=== PATIENT | male | born 1940 | race Hispanic/Latino ===

== ENCOUNTER 2018-08-17 16:11 | Emergency (ER) | payer OTHER ==
--- OUTSIDE RECORDS SUMMARY | 2018-08-17 16:14 | XMS REPORT | Clinical Summary ---
:1940 Author Organization [facility] Address [address] [place] [id number] Care Team Providers Name Role Phone Alexis Primary Care Provider Allergies No Known Allergies Medications Medication Sig Dispensed Refills Start Date End Date Status omeprazole (PRILOSEC) Take 40 mg by 0 Active 40 MG capsule mouth daily. losartan (COZAAR) 100 Take 100 mg by 0 Active MG tablet mouth daily. aspirin 81 MG EC Take 81 mg by 0 Active tablet mouth daily. pravastatin Take 40 mg by 0 Active (PRAVACHOL) 40 MG mouth daily. tablet clopidogrel (PLAVIX) Take 1 tablet 30 tablet 0 12/09/2016 12/09/2017 75 mg tablet (75 mg total) by mouth daily. Active Problems Problem Noted Date Nonrheumatic aortic (valve) stenosis 12/09/2016 S/P AVR Hypertension Coronary artery disease CHF (congestive heart failure) Stenosis of prosthetic aortic valve COPD (chronic obstructive pulmonary disease) Family History Medical History Relation Name Comments Heart disease Brother Relation Name Status Comments Brother Father Alive Mother Alive Social History Tobacco Use Types Packs/Day Years Used Date Former Smoker 1 Quit: 2005 Smokeless Tobacco: Never Used Tobacco Cessation: Counseling Given: No Alcohol Use Drinks/Week oz/Week Comments No Sex Assigned at Date Recorded Not on file Job Start Date Occupation Industry Not on file Not on file Not on file Travel History Travel Start Travel End No recent travel history available. Last Filed Vital Signs Not on file Plan of Treatment Not on file Implants Implanted Type Area Manager Inpatient Device Shelf Expiration Model / Identifier Date Serial / Lot Corevalve Evolut R Valves MEDTRONIC 07/09/2018 / Implanted: Qty: 1 on 12/08/2016 by Kan Hewitt MD [id number] / EVOLUTR 23- Results Not on fileafter 08/16/2017 Insurance Payer Benefit Plan / Group Subscriber ID Type Phone Address MEDICARE MEDICARE PART A xxxxxxxxxx Medicare AETNA - MGD CARE AETNA HMO POS QPOS xxxxxxxxxx HMO/POS [phone] (Work) Advance Directives For more information, please contact:[facility] [place], [place] [phone] Code Status Date Activated Date Inactivated Comments Full Code 12/08/2016 3:33 PM 12/09/2016 7:07 PM This code status was determined by: Patient Full Code 12/08/2016 5:23 AM 12/08/2016 3:33 PM This code status was determined by: Patient
--- OUTSIDE RECORDS SUMMARY | 2018-08-17 16:14 | XMS REPORT ---
:1940 Author Organization [facility] Address [address] [place] [address] Care Team Providers Name Role Phone PATRIC ALTMAN Unavailable Unavailable Problems This patient has no known problems. Allergies, Adverse Reactions, Alerts This patient has no known allergies or adverse reactions. Medications This patient has no known medications. Results Test Description Test Time Test Comments Text Results Atomic Results Result Comments BASIC METABOLIC PANEL 2016-12-09 06:18:00 Test Item Value Reference Range Comments SODIUM (BEAKER) (test 138 meq/L 136-145 mxyr=524) POTASSIUM (BEAKER) (test 4.2 meq/L 3.5-5.1 jgbh=163) CHLORIDE (BEAKER) (test 109 meq/L 98-107 ygkm=975) CO2 (BEAKER) (test loqx=915) 23 meq/L 22-29 BLOOD UREA NITROGEN (BEAKER) 16 mg/dL 7-21 (test kfsb=869) CREATININE (BEAKER) (test 1.15 mg/dL 0.57-1.25 uopr=339) GLUCOSE RANDOM (BEAKER) 127 mg/dL 70-105 (test eswc=339) CALCIUM (BEAKER) (test 8.3 mg/dL 8.4-10.2 ihgh=597) EGFR (BEAKER) (test 62 mL/min/1.73 sq m ESTIMATED GFR IS NOT jcev=7758) ACCURATE CREATININE CLEARANCE IN PREDICTING GLOMERULAR FILTRATION RATE. ESTIMATED GFR IS NOT APPLICABLE FOR DIALYSIS PATIENTS. HEPATITIS B SURFACE [id number] 06:15:00 Test Item Value Reference Range Comments HEPATITIS B SURFACE ANTIGEN (2) (BEAKER) (test Nonreactive Nonreactive vrgv=3398) For chronic HD patients, draw HBsAg with each admission then every 30 days.CBC W /PLT COUNT & AUTO [id number] 05:45:00 Test Item Value Reference Range Comments WHITE BLOOD CELL COUNT (BEAKER) (test kbal=640) 9.8 K/ L 3.5-10.5 RED BLOOD CELL COUNT (BEAKER) (test suje=767) 3.84 M/ L 4.63-6.08 HEMOGLOBIN (BEAKER) (test eypk=977) 11.5 GM/DL 13.7-17.5 HEMATOCRIT (BEAKER) (test pfne=502) 34.0 % 40.1-51.0 MEAN CORPUSCULAR VOLUME (BEAKER) (test fqzu=271) 88.5 fL 79.0-92.2 MEAN CORPUSCULAR HEMOGLOBIN (BEAKER) (test 29.9 pg 25.7-32.2 sczu=806) MEAN CORPUSCULAR HEMOGLOBIN CONC (BEAKER) (test 33.8 GM/DL 32.3-36.5 qsnh=066) RED CELL DISTRIBUTION WIDTH (BEAKER) (test 14.0 % 11.6-14.4 nyki=413) PLATELET COUNT (BEAKER) (test udtz=519) 99 K/CU MM 150-450 MEAN PLATELET VOLUME (BEAKER) (test vukj=031) 10.9 fL 9.4-12.4 NUCLEATED RED BLOOD CELLS (BEAKER) (test 0 /100 WBC 0-0 acrm=770) NEUTROPHILS RELATIVE PERCENT (BEAKER) (test 70 % ugxw=940) LYMPHOCYTES RELATIVE PERCENT (BEAKER) (test 18 % zjat=417) MONOCYTES RELATIVE PERCENT (BEAKER) (test 11 % bmgd=436) EOSINOPHILS RELATIVE PERCENT (BEAKER) (test 1 % dmen=561) BASOPHILS RELATIVE PERCENT (BEAKER) (test 0 % mwol=504) NEUTROPHILS ABSOLUTE COUNT (BEAKER) (test 6.87 K/ L 1.78-5.38 jxqt=008) LYMPHOCYTES ABSOLUTE COUNT (BEAKER) (test 1.77 K/ L 1.32-3.57 lfwp=774) MONOCYTES ABSOLUTE COUNT (BEAKER) (test waeo=199) 1.04 K/ L 0.30-0.82 EOSINOPHILS ABSOLUTE COUNT (BEAKER) (test 0.07 K/ L 0.04-0.54 aade=559) BASOPHILS ABSOLUTE COUNT (BEAKER) (test civu=680) 0.02 K/ L 0.01-0.08 IMMATURE GRANULOCYTES-RELATIVE PERCENT (BEAKER) 0 % 0-1 (test pgxn=9478) [id number] 11:14:00 Test Item Value Reference Range Comments ACTIVATED CLOTTING TIME 108 sec TESTED AT [facility] [address] (BEAKER) (test mmsa=774) [place] [address] SODIUM NA-STAT [id number] 10:49:00 Test Item Value Reference Range Comments SODIUM (BEAKER) (test gfit=689) 136 meq/L 135-148 POTASSIUM-STAT [id number] 10:49:00 Test Item Value Reference Range Comments POTASSIUM (BEAKER) (test aohb=811) 4.1 meq/L 3.6-5.5 BLOOD GAS, [id number] 10:49:00 Test Item Value Reference Range Comments PH ARTERIAL (BEAKER) (test wcmg=967) 7.28 7.35-7.45 PCO2 ARTERIAL (BEAKER) (test hgjv=685) 50 mmHg 35-45 PO2 ARTERIAL (BEAKER) (test fmiy=347) 73 mmHg 80-90 O2 SATURATION ARTERIAL (BEAKER) (test quef=271) 92.5 % 96.0-97.0 HCO3 ARTERIAL (BEAKER) (test blyx=198) 23 mmol/L 21-29 BASE EXCESS ARTERIAL (BEAKER) (test rmjv=017) -4.1 mmol/L -2.0-3.0 PATIENT TEMPERATURE (BEAKER) (test lbbe=3429) 37.0 C FIO2 (BEAKER) (test gsyt=5973) 21.0 % GLUCOSE-STAT [id number] 10:49:00 Test Item Value Reference Range Comments GLUCOSE RANDOM (BEAKER) (test kjzo=265) 143 mg/dL 70-110 HGB/HCT (H&H) - STAT [id number] 10:49:00 Test Item Value Reference Range Comments HEMOGLOBIN (BEAKER) (test iogu=175) 11.4 g/dL 13.0-16.8 HEMATOCRIT (BEAKER) (test lxhq=815) 34.0 % 40.0-50.0 [id number] 10:01:00 Test Item Value Reference Range Comments ACTIVATED CLOTTING TIME 246 sec TESTED AT [place] [id number] (BEAKER) (test fupi=770) [place] [address] [id number] 09:49:00 Test Item Value Reference Range Comments ACTIVATED CLOTTING TIME 186 sec TESTED AT [facility] [address] (BEAKER) (test fvlb=560) [place] [address] (MANUAL DIFFERENTIAL)2016-12-05 18:40:00 Test Item Value Reference Range Comments NEUTROPHILS - REL (DIFF) 45 % (BEAKER) (test qduh=6686) LYMPHOCYTES - REL (DIFF) 36 % (BEAKER) (test nohp=2718) MONOCYTES - REL (DIFF) (BEAKER) 5 % (test nsmj=8656) EOSINOPHILS - REL (DIFF) 8 % (BEAKER) (test btyd=2583) BASOPHILS - REL (DIFF) (BEAKER) 2 % (test cbua=9279) METAMYELOCYTES-REL (DIFF) 1 % 0-0 (BEAKER) (test xgdy=947) MYELOCYTES-REL (DIFF) (BEAKER) 2 % 0-0 (test mvrc=0788) BANDS - REL (DIFF) (BEAKER) 1 % 0-10 (test rrck=9353) NEUTROPHILS - ABS (DIFF) 2.79 K/ L 1.80-8.00 (BEAKER) (test kbol=2890) LYMPHOCYTES - ABS (DIFF) 2.23 K/ L 1.48-4.50 (BEAKER) (test asqf=3737) MONOCYTES - ABS (DIFF) (BEAKER) 0.31 K/ L 0.00-1.30 (test fwmw=1278) EOSINOPHILS - ABS (DIFF) 0.50 K/ L 0.00-0.50 (BEAKER) (test znmb=6680) BASOPHILS - ABS (DIFF) (BEAKER) 0.12 K/ L 0.00-0.20 (test vtkf=4235) METAMYELOCTYES - ABS (DIFF) 0.06 K/ L 0.00-0.00 (BEAKER) (test lkmk=899) BANDS-ABS (DIFF) (BEAKER) (test 0.1 K/ L 0.0-0.8 uzam=8560) MYELOCYTES-ABS (DIFF) (BEAKER) 0.12 K/ L 0.00-0.00 (test odsr=8703) TOTAL COUNTED (BEAKER) (test 100 hspo=1699) BANDS + SEGMENTED NEUTROPHILS 2.85 (BEAKER) (test dkhu=1423) WBC MORPHOLOGY (BEAKER) (test Normal wbux=778) PLT MORPHOLOGY (BEAKER) (test Normal wqdu=766) OVALOCYTES (BEAKER) (test 1+ few This is a corrected result. gdwn=522) Previous result was 2+ moderate on 12/05/2016 at 1824 CDT POIKILOCYTES (BEAKER) (test 1+ few mhxo=472) Called to RN at 1831.CBC W/PLT COUNT & AUTO [id number] 18:18:00 Test Item Value Reference Range Comments WHITE BLOOD CELL COUNT (BEAKER) (test cfno=772) 6.2 K/ L 3.5-10.5 RED BLOOD CELL COUNT (BEAKER) (test hyct=146) 4.52 M/ L 4.63-6.08 HEMOGLOBIN (BEAKER) (test uqnp=442) 13.6 GM/DL 13.7-17.5 HEMATOCRIT (BEAKER) (test rczb=290) 39.6 % 40.1-51.0 MEAN CORPUSCULAR VOLUME (BEAKER) (test cmbn=955) 87.6 fL 79.0-92.2 MEAN CORPUSCULAR HEMOGLOBIN (BEAKER) (test 30.1 pg 25.7-32.2 kvhz=255) MEAN CORPUSCULAR HEMOGLOBIN CONC (BEAKER) (test 34.3 GM/DL 32.3-36.5 mwbj=250) RED CELL DISTRIBUTION WIDTH (BEAKER) (test 13.4 % 11.6-14.4 qzha=738) PLATELET COUNT (BEAKER) (test dqdx=238) 140 K/CU MM 150-450 MEAN PLATELET VOLUME (BEAKER) (test wugt=482) 10.9 fL 9.4-12.4 NUCLEATED RED BLOOD CELLS (BEAKER) (test 0 /100 WBC 0-0 cibh=248) IMMATURE GRANULOCYTES-RELATIVE PERCENT (BEAKER) 0 % 0-1 (test dsdp=3940) B-TYPE NATRIURETIC FACTOR (BNP)2016-12-05 15:18:00 Test Item Value Reference Range Comments B-TYPE NATRIURETIC PEPTIDE (BEAKER) (test 135 pg/mL 0-100 fnod=821) BASIC METABOLIC [id number] 15:11:00 Test Item Value Reference Range Comments SODIUM (BEAKER) (test 137 meq/L 136-145 giqb=923) POTASSIUM (BEAKER) (test 4.2 meq/L 3.5-5.1 ilvs=282) CHLORIDE (BEAKER) (test 108 meq/L 98-107 ysdm=704) CO2 (BEAKER) (test 22 meq/L 22-29 aznz=023) BLOOD UREA NITROGEN 16 mg/dL 7-21 (BEAKER) (test dlit=841) CREATININE (BEAKER) (test 0.97 mg/dL 0.57-1.25 bogu=986) GLUCOSE RANDOM (BEAKER) 93 mg/dL 70-105 (test nvmi=528) CALCIUM (BEAKER) (test 9.3 mg/dL 8.4-10.2 ycdf=224) EGFR (BEAKER) (test 76 mL/min/1.73 sq m ESTIMATED GFR IS NOT zpms=2735) ACCURATE CREATININE CLEARANCE IN PREDICTING GLOMERULAR FILTRATION RATE. ESTIMATED GFR IS NOT APPLICABLE FOR DIALYSIS PATIENTS. [id number] 15:11:00 Test Item Value Reference Range Comments ALBUMIN (BEAKER) (test oniv=7465) 4.0 g/dL 3.5-5.0 PROTHROMBIN [id number] 15:10:00 Test Item Value Reference Range Comments PROTIME (BEAKER) (test xpbf=108) 14.9 seconds 11.7-14.7 INR (BEAKER) (test hwcj=639) 1.2 <=5.9 RECOMMENDED COUMADIN/WARFARIN INR THERAPY RANGESSTANDARD DOSE: 2.0 - 3.0 Includes: PROPHYLAXIS forvenous thrombosis, systemic embolization; TREATMENT for venous thrombosis and/or pulmonary embolus.HIGH RISK: Target INR is 2.5-3.5 for patients with mechanical heart valves.[id number] 13:21:00 Test Item Value Reference Range Comments POC-CREATININE (BEAKER) 1.1 mg/dL 0.6-1.3 TESTED AT [facility] [address] [facility] (test wrvp=1463) [facility] [address] POC-EGFR (BEAKER) (test 65 mL/min/1.73M2 owuv=5649)
[2018-08-17] MEDS ORDERED: ACETAMINOPHEN 325 MG TABLET ONE (18:15)
[2018-08-17] MEDS ORDERED: BENZONATATE 100 MG CAP PO ONE (18:15)
--- NOTE | 2018-08-17 18:53 | ER ---
Nurse's Notes [facility] Name: Marcel Hein Age: 78 yrs Sex: Male : 1940 Arrival Date: 08/17/2018 Time: 16:16 Bed 27 Private MD: Lino Salinas Diagnosis: Acute upper respiratory infection, unspecified Presentation: 08/17 16:28 Presenting complaint: Patient states: Sore throat and headache since yesterday, denies ss N/N/D or fever. Transition of care: patient was not received from another setting of care. Onset of symptoms was August 17, 2018. Risk Assessment: Do you want to hurt yourself or someone else? Patient reports no desire to harm self or others. Initial Sepsis Screen: Does the patient meet any 2 criteria? No. Patient's initial sepsis screen is negative. Does the patient have a suspected source of infection? No. Patient's initial sepsis screen is negative. Care prior to arrival: None. 16:28 Method Of Arrival: Ambulatory ss 16:28 Acuity: CHAD 4 ss Historical: - Allergies: 16:34 No Known Allergies; ph - Home Meds: 16:34 amlodipine 5 mg tab 1 tab once daily [Active]; aspirin 81 mg Oral chew 1 tab once daily ph [Active]; losartan 100 mg Oral tab 1 tab once daily [Active]; metoprolol tartrate 25 mg Oral tab 1 tab 2 times per day [Active]; omeprazole 40 mg Oral cpDR before meals [Active]; pravastatin 40 mg Oral tab 1 tab once daily [Active]; clopidogrel 75 mg oral tab 1 tab once daily [Active]; - PMHx: 16:34 CAD; GERD; High Cholesterol; Hypertension; ph - Immunization history:: Adult Immunizations unknown. - Social history:: Smoking status: Patient/guardian denies using tobacco. - Ebola Screening: : No symptoms or risks identified at this time. Screenin:32 Abuse screen: Denies threats or abuse. Denies injuries from another. Nutritional rv screening: No deficits noted. Tuberculosis screening: No symptoms or risk factors identified. Fall Risk None identified. Assessment: 17:31 General: Appears in no apparent distress. comfortable, Behavior is calm, cooperative. rv Pain: Complains of pain in throat. Neuro: Level of Consciousness is awake, alert, obeys commands, Oriented to person, place, time, situation. Cardiovascular: Patient's skin is warm and dry. Respiratory: Airway is patent Respiratory effort is even, Breath sounds are clear bilaterally. GI: No signs and/or symptoms were reported involving the gastrointestinal system. : No signs and/or symptoms were reported regarding the genitourinary system. EENT: Throat is reddened. Derm: Skin is intact. Musculoskeletal: No signs and/or symptoms reported regarding the musculoskeletal system. Vital Signs: 16:29 BP 136 / 53; Pulse 63; Resp 18; Temp 98.6; Pulse Ox 99% on R/A; Weight 68.04 kg; ss 17:00 BP 122 / 80; Pulse 99; Resp 16; Pulse Ox 99% ; rv 17:30 BP 103 / 69; Pulse 86; Resp 17; Temp 98.4; Pulse Ox 100% ; rv ED Course: 16:16 Patient arrived in ED. mr 16:17 Lino Salinas MD is Private Physician. mr 16:29 Triage completed. ss 16:30 Corey Dior PA is PHCP. jr8 16:30 Cristhian Chaves MD is Attending Physician. jr8 16:34 Arm band placed on Patient placed in an exam room, on a stretcher. ph 17:05 PHCP role handed off by Corey Dior PA cp 17:05 Cristhian Boss PA is PHCP. cp 17:06 Levi Leslie, [place] is Primary Nurse. rv 17:32 Patient has correct armband on for positive identification. Bed in low position. Call rv light in reach. Side rails up X 1. Pulse ox on. NIBP on. 19:12 No provider procedures requiring assistance completed. Patient did not have IV access rv during this emergency room visit. Administered Medications: 18:00 Drug: Tylenol 650 mg Route: PO; rv 19:14 Follow up: Response: Marked relief of symptoms rv 18:00 Drug: Tessalon Perle 200 mg Route: PO; rv 19:14 Follow up: Response: Marked relief of symptoms rv Outcome: 18:52 Discharge ordered by . cp 19:12 Discharged to home ambulatory. rv 19:12 Condition: good 19:12 Discharge instructions given to patient, family, Instructed on discharge instructions, follow up and referral plans. medication usage, Demonstrated understanding of instructions, follow-up care, medications, Prescriptions given X 2. 19:13 Patient left the ED. rv Signatures: Ileana OwusuMary Jo RN RN Corey Dior PA PA jr8 Hall, Patricia, RN RN Cristhian Boss PA PA cp Vicente, Ronaldo, RN RN rv Corrections: (The following items were deleted from the chart) 19:10 18:30 Inserted saline lock: 20 gauge in right antecubital area, using aseptic rv technique. Blood collected. rv
--- NOTE | 2018-08-17 18:54 | EDPHYS ---
Physician Documentation [facility] Name: Marcel Hein Age: 78 yrs Sex: Male : 1940 Arrival Date: 08/17/2018 Time: 16:16 Bed 27 Private MD: Lino Salinas ED Physician Cristhian Chaves HPI: 08/17 17:30 This 78 yrs old Male presents to ER via Ambulatory with complaints of Sore cp Throat. 17:30 The patient presents with sore throat. Onset: The symptoms/episode began/occurred cp yesterday. Associated signs and symptoms: Pertinent positives: cough, headache, Pertinent negatives diarrhea, dysphagia, fever, shortness of breath, vomiting. Historical: - Allergies: 16:34 No Known Allergies; ph - Home Meds: 16:34 amlodipine 5 mg tab 1 tab once daily [Active]; aspirin 81 mg Oral chew 1 tab once daily ph [Active]; losartan 100 mg Oral tab 1 tab once daily [Active]; metoprolol tartrate 25 mg Oral tab 1 tab 2 times per day [Active]; omeprazole 40 mg Oral cpDR before meals [Active]; pravastatin 40 mg Oral tab 1 tab once daily [Active]; clopidogrel 75 mg oral tab 1 tab once daily [Active]; - PMHx: 16:34 CAD; GERD; High Cholesterol; Hypertension; ph - Immunization history:: Adult Immunizations unknown. - Social history:: Smoking status: Patient/guardian denies using tobacco. - Ebola Screening: : No symptoms or risks identified at this time. ROS: 17:35 Constitutional: Negative for body aches, chills, fever, poor PO intake. cp 17:35 Eyes: Negative for injury, pain, redness, and discharge. cp 17:35 ENT: Positive for sore throat, Negative for drainage from ear(s), ear pain, sinus congestion, sinus pain, difficulty swallowing, difficulty handling secretions. 17:35 Neck: Negative for pain with movement, pain at rest, stiffness. 17:35 Cardiovascular: Negative for chest pain, edema, palpitations. 17:35 Respiratory: Positive for cough, with no reported sputum, Negative for shortness of breath, wheezing. 17:35 Abdomen/GI: Negative for abdominal pain, nausea, vomiting, and diarrhea. 17:35 Skin: Negative for rash. 17:35 Neuro: Positive for headache, Negative for altered mental status, weakness. 17:35 All other systems are negative. Exam: 17:45 Constitutional: The patient appears in no acute distress, alert, awake, cp non-diaphoretic, non-toxic, well developed, well nourished. 17:45 Head/Face: Normocephalic, atraumatic. cp 17:45 Eyes: Periorbital structures: appear normal, Conjunctiva: normal, no exudate, no injection, Lids and lashes: appear normal, bilaterally. 17:45 ENT: External ear(s): are unremarkable, Ear canal(s): are normal, clear, TM's: bulging, is not appreciated, bilaterally, dullness, bilaterally, erythema, is not appreciated, bilaterally, Nose: is normal, Mouth: Lips: moist, Oral mucosa: moist, Posterior pharynx: Airway: no evidence of obstruction, patent, Tonsils: with erythema, no enlargement, no exudate, Uvula: midline, swelling, is not appreciated, erythema, that is mild, exudate, is not appreciated. 17:45 Neck: ROM/movement: is normal, is supple, without pain, no range of motions limitations, no meningismus, no nuchal rigidity, Lymph nodes: no appreciated lymphadenopathy. 17:45 Chest/axilla: Inspection: normal, Palpation: is normal, no crepitus, no tenderness. 17:45 Cardiovascular: Rate: normal, Rhythm: regular. 17:45 Respiratory: the patient does not display signs of respiratory distress, Respirations: normal, no use of accessory muscles, no retractions, no splinting, no tachypnea, labored breathing, is not present, Breath sounds: are clear throughout, no decreased breath sounds, no stridor, no wheezing. 17:45 Abdomen/GI: Exam negative for discomfort, distension, guarding, Inspection: abdomen appears normal. 17:45 Skin: no rash present. Vital Signs: 16:29 BP 136 / 53; Pulse 63; Resp 18; Temp 98.6; Pulse Ox 99% on R/A; Weight 68.04 kg; ss 17:00 BP 122 / 80; Pulse 99; Resp 16; Pulse Ox 99% ; rv 17:30 BP 103 / 69; Pulse 86; Resp 17; Temp 98.4; Pulse Ox 100% ; rv MDM: 16:30 Patient medically screened. jr8 17:30 Differential diagnosis: apthous stomatitis, group A strep tonsillitis, marty's angina, cp peritonsillar abscess pharyngitis, retropharyngeal abcess. 18:50 Data reviewed: vital signs, nurses notes, lab test result(s), and as a result, I will cp discharge patient. 18:50 Counseling: I had a detailed discussion with the patient and/or guardian regarding: the cp historical points, exam findings, and any diagnostic results supporting the discharge/admit diagnosis, lab results, to return to the emergency department if symptoms worsen or persist or if there are any questions or concerns that arise at home. 08/17 17:24 Order name: Influenza Screen (a \T\ B); Complete Time: 06:09 08/17 17:24 Order name: Strep; Complete Time: 06:09 08/17 17:47 Order name: Throat Culture EDOK Administered Medications: 18:00 Drug: Tylenol 650 mg Route: PO; rv 19:14 Follow up: Response: Marked relief of symptoms rv 18:00 Drug: Tessalon Perle 200 mg Route: PO; rv 19:14 Follow up: Response: Marked relief of symptoms rv Disposition: 08/17/18 18:52 Discharged to Home. Impression: Acute upper respiratory infection, unspecified. - Condition is Stable. - Discharge Instructions: Upper Respiratory Infection, Adult, Viral Respiratory Infection, Cool Mist Vaporizer. - Prescriptions for Ibuprofen 800 mg Oral Tablet - take 1 tablet by ORAL route every 8 hours As needed take with food; 30 tablet. Tessalon Perles 100 mg Oral Capsule - take 1 capsule by ORAL route every 8 hours As needed; 15 capsule. - Medication Reconciliation Form, Thank You Letter, Antibiotic Education, Prescription Opioid Use form. - Follow up: Private Physician; When: 2 - 3 days; Reason: Worsening of condition. - Problem is new. - Symptoms have improved. Addendum: 08/21/2018 08:26 Co-signature as Attending Physician, Cristhian Chaves MD I agree with the assessment and c thomas plan of care. Signatures: Dispatcher [employer] EDOK Cristhian Chaves MD MD cha Roszak, Josh, PA PA jr8 Bettie Davis RN RN ph Cristhian Boss PA PA cp Vicente, Ronaldo, RN RN rv Corrections: (The following items were deleted from the chart) 08/17 19:13 18:52 08/17/2018 18:52 Discharged to Home. Impression: Acute upper respiratory rv infection, unspecified. Condition is Stable. Forms are Medication Reconciliation Form, Thank You Letter, Antibiotic Education, Prescription Opioid Use. Follow up: Private Physician; When: 2 - 3 days; Reason: Worsening of condition. Problem is new. Symptoms have improved. cp
== END 2018-08-17 19:13 | disposition home or self-care (01) ==
LOC: ER 16:11
DX: J06.9 Acute upper respiratory infection, unspecified (principal); I10 Essential (primary) hypertension; E78.00 Pure hypercholesterolemia, unspecified; I25.10 Atherosclerotic heart disease of native coronary artery without angina pectoris; Z79.82 Long term (current) use of aspirin
CPT/HCPCS: 87070; 87081; 87804; 99283

== ENCOUNTER 2018-08-30 02:03 | Emergency (ER) | payer OTHER ==
--- OUTSIDE RECORDS SUMMARY | 2018-08-30 02:05 | XMS REPORT | Clinical Summary ---
:1940 Author Organization [facility] Address [address] [place] [id number] Care Team Providers Name Role Phone Alexis [...] Not on file Implants Implanted Type Area Senior C Software Developer Device Shelf Expiration Model / Identifier Date Serial / Lot Corevalve Evolut R Valves MEDTRONIC 07/09/2018 / Implanted: Qty: 1 on 12/08/2016 by Kan Hewitt MD [id number] / EVOLUTR 23- Results Not on fileafter 08/29/2017 Insurance Payer Benefit Plan / Group Subscriber ID Type Phone Address MEDICARE MEDICARE PART A xxxxxxxxxx Medicare AETNA - MGD CARE AETNA HMO POS QPOS xxxxxxxxxx HMO/POS [phone] (Work) Advance Directives For more information, please contact:[facility] [place], [place] [phone] Code Status Date Activated Date Inactivated Comments Full Code 12/08/2016 3:33 PM 12/09/2016 7:07 PM This code status was determined by: Patient Full Code 12/08/2016 5:23 AM 12/08/2016 3:33 PM This code status was determined by: Patient
--- OUTSIDE RECORDS SUMMARY | 2018-08-30 02:06 | XMS REPORT ---
:1940 Author Organization [facility] Address [address] [place] [address] Care Team Providers Name Role Phone PATRIC [...] Comments SODIUM (BEAKER) (test 138 meq/L 136-145 avtf=453) POTASSIUM (BEAKER) (test 4.2 meq/L 3.5-5.1 ulzy=038) CHLORIDE (BEAKER) (test 109 meq/L 98-107 jcmr=630) CO2 (BEAKER) (test qpqw=058) 23 meq/L 22-29 BLOOD UREA NITROGEN (BEAKER) 16 mg/dL 7-21 (test jjdl=523) CREATININE (BEAKER) (test 1.15 mg/dL 0.57-1.25 zpcb=904) GLUCOSE RANDOM (BEAKER) 127 mg/dL 70-105 (test fphc=212) CALCIUM (BEAKER) (test 8.3 mg/dL 8.4-10.2 fjbw=900) EGFR (BEAKER) (test 62 mL/min/1.73 sq m ESTIMATED GFR IS NOT vund=6496) ACCURATE CREATININE CLEARANCE IN PREDICTING GLOMERULAR FILTRATION RATE. ESTIMATED GFR IS NOT APPLICABLE FOR DIALYSIS PATIENTS. HEPATITIS B SURFACE [id number] 06:15:00 Test Item Value Reference Range Comments HEPATITIS B SURFACE ANTIGEN (2) (BEAKER) (test Nonreactive Nonreactive reql=9299) For chronic HD patients, draw HBsAg with each admission then every 30 days.CBC W /PLT COUNT & AUTO [id number] 05:45:00 Test Item Value Reference Range Comments WHITE BLOOD CELL COUNT (BEAKER) (test xikz=492) 9.8 K/ L 3.5-10.5 RED BLOOD CELL COUNT (BEAKER) (test pmqo=090) 3.84 M/ L 4.63-6.08 HEMOGLOBIN (BEAKER) (test qlpc=740) 11.5 GM/DL 13.7-17.5 HEMATOCRIT (BEAKER) (test esjh=041) 34.0 % 40.1-51.0 MEAN CORPUSCULAR VOLUME (BEAKER) (test jbcn=755) 88.5 fL 79.0-92.2 MEAN CORPUSCULAR HEMOGLOBIN (BEAKER) (test 29.9 pg 25.7-32.2 dkdx=101) MEAN CORPUSCULAR HEMOGLOBIN CONC (BEAKER) (test 33.8 GM/DL 32.3-36.5 ddbn=531) RED CELL DISTRIBUTION WIDTH (BEAKER) (test 14.0 % 11.6-14.4 dupg=485) PLATELET COUNT (BEAKER) (test iwbc=610) 99 K/CU MM 150-450 MEAN PLATELET VOLUME (BEAKER) (test nmtl=047) 10.9 fL 9.4-12.4 NUCLEATED RED BLOOD CELLS (BEAKER) (test 0 /100 WBC 0-0 zcql=030) NEUTROPHILS RELATIVE PERCENT (BEAKER) (test 70 % fvox=825) LYMPHOCYTES RELATIVE PERCENT (BEAKER) (test 18 % kkpg=985) MONOCYTES RELATIVE PERCENT (BEAKER) (test 11 % hext=935) EOSINOPHILS RELATIVE PERCENT (BEAKER) (test 1 % pcte=810) BASOPHILS RELATIVE PERCENT (BEAKER) (test 0 % aktk=725) NEUTROPHILS ABSOLUTE COUNT (BEAKER) (test 6.87 K/ L 1.78-5.38 sqkv=891) LYMPHOCYTES ABSOLUTE COUNT (BEAKER) (test 1.77 K/ L 1.32-3.57 sdsw=931) MONOCYTES ABSOLUTE COUNT (BEAKER) (test vgur=667) 1.04 K/ L 0.30-0.82 EOSINOPHILS ABSOLUTE COUNT (BEAKER) (test 0.07 K/ L 0.04-0.54 zict=395) BASOPHILS ABSOLUTE COUNT (BEAKER) (test ilse=809) 0.02 K/ L 0.01-0.08 IMMATURE GRANULOCYTES-RELATIVE PERCENT (BEAKER) 0 % 0-1 (test wrin=8827) [id number] 11:14:00 Test Item Value Reference Range Comments ACTIVATED CLOTTING TIME 108 sec TESTED AT [facility] [address] (BEAKER) (test fyil=218) [place] [address] SODIUM NA-STAT [id number] 10:49:00 Test Item Value Reference Range Comments SODIUM (BEAKER) (test zlbq=424) 136 meq/L 135-148 POTASSIUM-STAT [id number] 10:49:00 Test Item Value Reference Range Comments POTASSIUM (BEAKER) (test vsaf=389) 4.1 meq/L 3.6-5.5 BLOOD GAS, [id number] 10:49:00 Test Item Value Reference Range Comments PH ARTERIAL (BEAKER) (test agjw=204) 7.28 7.35-7.45 PCO2 ARTERIAL (BEAKER) (test orkk=162) 50 mmHg 35-45 PO2 ARTERIAL (BEAKER) (test fwul=085) 73 mmHg 80-90 O2 SATURATION ARTERIAL (BEAKER) (test fjzw=995) 92.5 % 96.0-97.0 HCO3 ARTERIAL (BEAKER) (test vnut=046) 23 mmol/L 21-29 BASE EXCESS ARTERIAL (BEAKER) (test unyh=579) -4.1 mmol/L -2.0-3.0 PATIENT TEMPERATURE (BEAKER) (test giox=1249) 37.0 C FIO2 (BEAKER) (test lobt=7917) 21.0 % GLUCOSE-STAT [id number] 10:49:00 Test Item Value Reference Range Comments GLUCOSE RANDOM (BEAKER) (test ckra=175) 143 mg/dL 70-110 HGB/HCT (H&H) - STAT [id number] 10:49:00 Test Item Value Reference Range Comments HEMOGLOBIN (BEAKER) (test jdfm=166) 11.4 g/dL 13.0-16.8 HEMATOCRIT (BEAKER) (test zmak=145) 34.0 % 40.0-50.0 [id number] 10:01:00 Test Item Value Reference Range Comments ACTIVATED CLOTTING TIME 246 sec TESTED AT [place] [id number] (BEAKER) (test yhzj=736) [place] [address] [id number] 09:49:00 Test Item Value Reference Range Comments ACTIVATED CLOTTING TIME 186 sec TESTED AT [facility] [address] (BEAKER) (test xkta=956) [place] [address] (MANUAL DIFFERENTIAL)2016-12-05 18:40:00 Test Item Value Reference Range Comments NEUTROPHILS - REL (DIFF) 45 % (BEAKER) (test chtt=4771) LYMPHOCYTES - REL (DIFF) 36 % (BEAKER) (test yhbc=9586) MONOCYTES - REL (DIFF) (BEAKER) 5 % (test wswn=4949) EOSINOPHILS - REL (DIFF) 8 % (BEAKER) (test onhc=1883) BASOPHILS - REL (DIFF) (BEAKER) 2 % (test mote=3771) METAMYELOCYTES-REL (DIFF) 1 % 0-0 (BEAKER) (test rnxs=577) MYELOCYTES-REL (DIFF) (BEAKER) 2 % 0-0 (test kpml=7201) BANDS - REL (DIFF) (BEAKER) 1 % 0-10 (test waeb=5711) NEUTROPHILS - ABS (DIFF) 2.79 K/ L 1.80-8.00 (BEAKER) (test kaar=6249) LYMPHOCYTES - ABS (DIFF) 2.23 K/ L 1.48-4.50 (BEAKER) (test spvu=7951) MONOCYTES - ABS (DIFF) (BEAKER) 0.31 K/ L 0.00-1.30 (test jced=6942) EOSINOPHILS - ABS (DIFF) 0.50 K/ L 0.00-0.50 (BEAKER) (test mmao=2860) BASOPHILS - ABS (DIFF) (BEAKER) 0.12 K/ L 0.00-0.20 (test mmrf=8214) METAMYELOCTYES - ABS (DIFF) 0.06 K/ L 0.00-0.00 (BEAKER) (test opfh=011) BANDS-ABS (DIFF) (BEAKER) (test 0.1 K/ L 0.0-0.8 iuek=0321) MYELOCYTES-ABS (DIFF) (BEAKER) 0.12 K/ L 0.00-0.00 (test rons=7007) TOTAL COUNTED (BEAKER) (test 100 ahsz=8660) BANDS + SEGMENTED NEUTROPHILS 2.85 (BEAKER) (test zwzn=0662) WBC MORPHOLOGY (BEAKER) (test Normal vrxj=044) PLT MORPHOLOGY (BEAKER) (test Normal nvww=711) OVALOCYTES (BEAKER) (test 1+ few This is a corrected result. tkub=450) Previous result was 2+ moderate on 12/05/2016 at 1824 CDT POIKILOCYTES (BEAKER) (test 1+ few usaj=092) Called to RN at 1831.CBC W/PLT COUNT & AUTO [id number] 18:18:00 Test Item Value Reference Range Comments WHITE BLOOD CELL COUNT (BEAKER) (test uoxm=375) 6.2 K/ L 3.5-10.5 RED BLOOD CELL COUNT (BEAKER) (test lmnz=873) 4.52 M/ L 4.63-6.08 HEMOGLOBIN (BEAKER) (test pewv=797) 13.6 GM/DL 13.7-17.5 HEMATOCRIT (BEAKER) (test xdiu=597) 39.6 % 40.1-51.0 MEAN CORPUSCULAR VOLUME (BEAKER) (test vggw=441) 87.6 fL 79.0-92.2 MEAN CORPUSCULAR HEMOGLOBIN (BEAKER) (test 30.1 pg 25.7-32.2 rzam=901) MEAN CORPUSCULAR HEMOGLOBIN CONC (BEAKER) (test 34.3 GM/DL 32.3-36.5 spww=158) RED CELL DISTRIBUTION WIDTH (BEAKER) (test 13.4 % 11.6-14.4 ercj=373) PLATELET COUNT (BEAKER) (test aikt=911) 140 K/CU MM 150-450 MEAN PLATELET VOLUME (BEAKER) (test qyxp=454) 10.9 fL 9.4-12.4 NUCLEATED RED BLOOD CELLS (BEAKER) (test 0 /100 WBC 0-0 higk=903) IMMATURE GRANULOCYTES-RELATIVE PERCENT (BEAKER) 0 % 0-1 (test zzeq=5348) B-TYPE NATRIURETIC FACTOR (BNP)2016-12-05 15:18:00 Test Item Value Reference Range Comments B-TYPE NATRIURETIC PEPTIDE (BEAKER) (test 135 pg/mL 0-100 ebbe=928) BASIC METABOLIC [id number] 15:11:00 Test Item Value Reference Range Comments SODIUM (BEAKER) (test 137 meq/L 136-145 divl=419) POTASSIUM (BEAKER) (test 4.2 meq/L 3.5-5.1 lcdx=921) CHLORIDE (BEAKER) (test 108 meq/L 98-107 yuyu=941) CO2 (BEAKER) (test 22 meq/L 22-29 vqsx=901) BLOOD UREA NITROGEN 16 mg/dL 7-21 (BEAKER) (test hnrr=906) CREATININE (BEAKER) (test 0.97 mg/dL 0.57-1.25 nnse=155) GLUCOSE RANDOM (BEAKER) 93 mg/dL 70-105 (test xbhr=571) CALCIUM (BEAKER) (test 9.3 mg/dL 8.4-10.2 kbcc=304) EGFR (BEAKER) (test 76 mL/min/1.73 sq m ESTIMATED GFR IS NOT huxh=0737) ACCURATE CREATININE CLEARANCE IN PREDICTING GLOMERULAR FILTRATION RATE. ESTIMATED GFR IS NOT APPLICABLE FOR DIALYSIS PATIENTS. [id number] 15:11:00 Test Item Value Reference Range Comments ALBUMIN (BEAKER) (test bvze=1319) 4.0 g/dL 3.5-5.0 PROTHROMBIN TIME/[id number] 15:10:00 Test Item Value Reference Range Comments PROTIME (BEAKER) (test vlko=029) 14.9 seconds 11.7-14.7 INR (BEAKER) (test gicv=995) 1.2 <=5.9 RECOMMENDED COUMADIN/WARFARIN INR THERAPY RANGESSTANDARD DOSE: 2.0 - 3.0 Includes: PROPHYLAXIS forvenous thrombosis, systemic embolization; TREATMENT for venous thrombosis and/or pulmonary embolus.HIGH RISK: Target INR is 2.5-3.5 for patients with mechanical heart valves.[id number] 13:21:00 Test Item Value Reference Range Comments POC-CREATININE (BEAKER) 1.1 mg/dL 0.6-1.3 TESTED AT [facility] [address] [facility] (test mgfv=7258[facility] [address] POC-EGFR (BEAKER) (test 65 mL/min/1.73M2 voaf=2145)
[2018-08-30] MEDS ORDERED: HYDROCODONE/CHLORPHEN 5 ML/OSYR ONE (02:49)
[2018-08-30] MEDS ORDERED: ALBUTEROL 2.5 MG/3 ML NEB SOL ONE (02:49)
[2018-08-30] MEDS ORDERED: IPRATROPIUM BROM 0.5MG/2.5ML ONE (02:49)
--- NOTE | 2018-08-30 03:10 | ER ---
Nurse's Notes [facility] Name: Marcel Hein Age: 78 yrs Sex: Male : 1940 Arrival Date: 08/30/2018 Time: 02:03 Bed 20 Private MD: Diagnosis: Simple chronic bronchitis Presentation: 08/30 02:19 Presenting complaint: Patient states: I was diagnosed with bronchitis and its not ed1 getting better. Transition of care: patient was not received from another setting of care. Onset of symptoms was August 30, 2018. Risk Assessment: Do you want to hurt yourself or someone else? Patient reports no desire to harm self or others. Initial Sepsis Screen: Does the patient meet any 2 criteria? No. Patient's initial sepsis screen is negative. Does the patient have a suspected source of infection? No. Patient's initial sepsis screen is negative. Care prior to arrival: None. 02:19 Method Of Arrival: Ambulatory ed1 02:19 Acuity: CHAD 5 ed1 Triage Assessment: 02:22 General: Appears in no apparent distress. Behavior is calm, cooperative. Pain: Denies ed1 pain. EENT: Oral mucosa is moist. Neuro: Level of Consciousness is awake, alert, obeys commands, Oriented to person, place, time, situation. Cardiovascular: Denies chest pain, Heart tones S1 S2 present. Respiratory: Reports cough that is Airway is patent Respiratory effort is even, unlabored, Respiratory pattern is regular, symmetrical, Breath sounds are clear bilaterally. GI: No signs and/or symptoms were reported involving the gastrointestinal system. : No signs and/or symptoms were reported regarding the genitourinary system. Derm: Skin is pink, warm \T\ dry. Musculoskeletal: Circulation, motion, and sensation intact. Range of motion: intact in all extremities. Historical: - Allergies: 02:22 No Known Allergies; ed1 - Home Meds: 02:22 omeprazole 40 mg Oral cpDR before meals [Active]; pravastatin 40 mg Oral tab 1 tab once ed1 daily [Active]; aspirin 81 mg Oral chew 1 tab once daily [Active]; clopidogrel 75 mg Oral tab 1 tab once daily [Active]; amlodipine 5 mg tab 1 tab once daily [Active]; metoprolol tartrate 25 mg Oral tab 1 tab 2 times per day [Active]; losartan-hydrochlorothiazide 100-25 mg oral tab 1 tab once daily [Active]; - PMHx: 02:22 CAD; GERD; High Cholesterol; Hypertension; ed1 - PSHx: 02:22 Valve Replacement; ed1 - Immunization history:: Adult Immunizations up to date. - Social history:: Smoking status: Patient/guardian denies using tobacco. - Ebola Screening: : Patient negative for fever greater than or equal to 101.5 degrees Fahrenheit, and additional compatible Ebola Virus Disease symptoms Patient denies exposure to infectious person Patient denies travel to an Ebola-affected area in the 21 days before illness onset No symptoms or risks identified at this time. Screenin:25 Abuse screen: Denies threats or abuse. Denies injuries from another. Nutritional ed1 screening: No deficits noted. Tuberculosis screening: No symptoms or risk factors identified. Fall Risk None identified. Assessment: 02:25 General: See triage assessment. ed1 03:14 Reassessment: Patient appears in no apparent distress at this time. Patient and/or ed1 family updated on plan of care and expected duration. Pain level reassessed. Patient is alert, oriented x 3, equal unlabored respirations, skin warm/dry/pink. Patient states feeling better. Patient states symptoms have improved. Vital Signs: 02:22 BP 144 / 47; Pulse 60; Resp 20; Temp 98.1; Pulse Ox 99% on R/A; Weight 68.04 kg; Height ed1 5 ft. 5 in. (165.10 cm); Pain 0/10; 03:14 BP 116 / 41; Pulse 76; Resp 17; Temp 97.6(TE); Pulse Ox 100% on R/A; Pain 0/10; ed1 02:22 Body Mass Index 24.96 (68.04 kg, 165.10 cm) ed1 ED Course: 02:03 Patient arrived in ED. ds1 02:11 Zunilda Franks, [place] is Primary Nurse. ed1 02:20 Triage completed. ed1 02:22 Edd Khan MD is Attending Physician. tw4 02:22 Arm band placed on left wrist. ed1 02:25 Patient has correct armband on for positive identification. ed1 03:14 No provider procedures requiring assistance completed. Patient did not have IV access ed1 during this emergency room visit. Administered Medications: 02:37 Drug: DuoNeb (3:1) (2.5 mg - 0.5 mg) 3 ml Route: Nebulizer; ed1 03:16 Follow up: Response: No adverse reaction ed1 02:37 Drug: Tussionex Pennkinetic ER 5 ml Route: PO; ed1 03:16 Follow up: Response: No adverse reaction; Marked relief of symptoms ed1 Outcome: 03:09 Discharge ordered by . tw4 03:14 Discharged to home ambulatory, with significant other. ed1 03:14 Condition: good 03:14 Discharge instructions given to patient, Instructed on discharge instructions, follow up and referral plans. medication usage, Demonstrated understanding of instructions, follow-up care, medications, Prescriptions given X 1. 03:16 Patient left the ED. ed1 Signatures: Nya Hayward ds1 Zunilda Franks, RN RN ed1 Edd Khan MD MD tw4
--- NOTE | 2018-08-30 03:10 | EDPHYS ---
Physician Documentation [facility] Name: Marcel Hein Age: 78 yrs Sex: Male : 1940 Arrival Date: 08/30/2018 Time: 02:03 Bed 20 Private MD: ED Physician Edd Khan HPI: 08/30 03:02 This 78 yrs old Male presents to ER via Ambulatory with complaints of Cough. tw4 03:02 The patient or guardian reports cough, that is constant. Onset: The symptoms/episode tw4 began/occurred 3 week(s) ago. Severity of symptoms: At their worst the symptoms were moderate, in the emergency department the symptoms are unchanged. Modifying factors: The symptoms are alleviated by nothing, the symptoms are aggravated by nothing. The patient has experienced a previous episode. The patient has been recently seen by a physician: the patient's primary care provider. Historical: - Allergies: 02:22 No Known Allergies; ed1 - Home Meds: 02:22 omeprazole 40 mg Oral cpDR before meals [Active]; pravastatin 40 mg Oral tab 1 tab once ed1 daily [Active]; aspirin 81 mg Oral chew 1 tab once daily [Active]; clopidogrel 75 mg Oral tab 1 tab once daily [Active]; amlodipine 5 mg tab 1 tab once daily [Active]; metoprolol tartrate 25 mg Oral tab 1 tab 2 times per day [Active]; losartan-hydrochlorothiazide 100-25 mg oral tab 1 tab once daily [Active]; - PMHx: 02:22 CAD; GERD; High Cholesterol; Hypertension; ed1 - PSHx: 02:22 Valve Replacement; ed1 - Immunization history:: Adult Immunizations up to date. - Social history:: Smoking status: Patient/guardian denies using tobacco. - Ebola Screening: : Patient negative for fever greater than or equal to 101.5 degrees Fahrenheit, and additional compatible Ebola Virus Disease symptoms Patient denies exposure to infectious person Patient denies travel to an Ebola-affected area in the 21 days before illness onset No symptoms or risks identified at this time. ROS: 03:02 Constitutional: Negative for fever, chills, and weight loss, Eyes: Negative for injury, tw4 pain, redness, and discharge, Cardiovascular: Negative for chest pain, palpitations, and edema, Abdomen/GI: Negative for abdominal pain, nausea, vomiting, diarrhea, and constipation, Back: Negative for injury and pain, MS/Extremity: Negative for injury and deformity, Skin: Negative for injury, rash, and discoloration, Neuro: Negative for headache, weakness, numbness, tingling, and seizure. 03:02 Respiratory: Positive for cough, with no reported sputum, Negative for dyspnea on exertion, hemoptysis, orthopnea, pleurisy, shortness of breath, sputum production. Exam: 03:02 Constitutional: This is a well developed, well nourished patient who is awake, alert, tw4 and in no acute distress. Head/Face: Normocephalic, atraumatic. Neck: Trachea midline, no thyromegaly or masses palpated, and no cervical lymphadenopathy. Supple, full range of motion without nuchal rigidity, or vertebral point tenderness. No Meningismus. Chest/axilla: Normal chest wall appearance and motion. Nontender with no deformity. No lesions are appreciated. Cardiovascular: Regular rate and rhythm with a normal S1 and S2. No gallops, murmurs, or rubs. Normal PMI, no JVD. No pulse deficits. Abdomen/GI: Soft, non-tender, with normal bowel sounds. No distension or tympany. No guarding or rebound. No evidence of tenderness throughout. 03:02 MS/ Extremity: Pulses equal, no cyanosis. Neurovascular intact. Full, normal range of motion. Neuro: Awake and alert, GCS 15, oriented to person, place, time, and situation. Cranial nerves II-XII grossly intact. Motor strength 5/5 in all extremities. Sensory grossly intact. Cerebellar exam normal. Normal gait. 03:02 Respiratory: the patient does not display signs of respiratory distress, Respirations: normal, Breath sounds: wheezing: expiratory that is mild, is scattered. Vital Signs: 02:22 BP 144 / 47; Pulse 60; Resp 20; Temp 98.1; Pulse Ox 99% on R/A; Weight 68.04 kg; Height ed1 5 ft. 5 in. (165.10 cm); Pain 0/10; 03:14 BP 116 / 41; Pulse 76; Resp 17; Temp 97.6(TE); Pulse Ox 100% on R/A; Pain 0/10; ed1 02:22 Body Mass Index 24.96 (68.04 kg, 165.10 cm) ed1 MDM: 02:22 Patient medically screened. tw4 03:02 Differential Diagnosis: Bronchitis Influenza Upper Respiratory Infection. Data tw4 reviewed: vital signs, nurses notes. Data interpreted: Pulse oximetry: Interpretation: normal. Counseling: I had a detailed discussion with the patient and/or guardian regarding: the historical points, exam findings, and any diagnostic results supporting the discharge/admit diagnosis, lab results, radiology results. Special discussion: I discussed with the patient/guardian in detail that at this point there is no indication for admission to the hospital. It is understood, however, that if the symptoms persist or worsen the patient needs to return immediately for re-evaluation. Administered Medications: 02:37 Drug: DuoNeb (3:1) (2.5 mg - 0.5 mg) 3 ml Route: Nebulizer; ed1 03:16 Follow up: Response: No adverse reaction ed1 02:37 Drug: Tussionex Pennkinetic ER 5 ml Route: PO; ed1 03:16 Follow up: Response: No adverse reaction; Marked relief of symptoms ed1 Disposition: 08/30/18 03:09 Discharged to Home. Impression: Simple chronic bronchitis. - Condition is Stable. - Discharge Instructions: Chronic Bronchitis, Cough, Adult. - Prescriptions for Tessalon Perles 100 mg Oral Capsule - take 1 capsule by ORAL route every 8 hours As needed; 15 capsule. - Medication Reconciliation Form, Thank You Letter, Antibiotic Education, Prescription Opioid Use form. - Follow up: Private Physician; When: Upon discharge from the Emergency Department; Reason: If symptoms return, Recheck today's complaints, Continuance of care. - Problem is new. - Symptoms have improved. Signatures: Zunilda Franks RN RN ed1 Edd Khan MD MD tw4 Corrections: (The following items were deleted from the chart) 03:16 03:09 08/30/2018 03:09 Discharged to Home. Impression: Simple chronic bronchitis. ed1 Condition is Stable. Forms are Medication Reconciliation Form, Thank You Letter, Antibiotic Education, Prescription Opioid Use. Follow up: Private Physician; When: Upon discharge from the Emergency Department; Reason: If symptoms return, Recheck today's complaints, Continuance of care. Problem is new. Symptoms have improved. tw4
== END 2018-08-30 03:16 | disposition home or self-care (01) ==
LOC: ER 02:03
DX: J41.0 Simple chronic bronchitis (principal); I25.10 Atherosclerotic heart disease of native coronary artery without angina pectoris; I10 Essential (primary) hypertension; E78.00 Pure hypercholesterolemia, unspecified; Z79.82 Long term (current) use of aspirin
CPT/HCPCS: 94640; 99284

== ENCOUNTER 2018-09-26 17:42 | Emergency (ER) | payer OTHER ==
--- OUTSIDE RECORDS SUMMARY | 2018-09-26 17:44 | XMS REPORT | Clinical Summary ---
:1940 Author Organization [facility] Address [address] [place] [id number] Care Team Providers Name Role Phone Alexis [...] Not on file Implants Implanted Type Area Puller Out Device Shelf Expiration Model / Identifier Date Serial / Lot Corevalve Evolut R Valves [employer] 07/09/2018 / Implanted: Qty: 1 on 12/08/2016 by Kan Hewitt MD [id number] / EVOLUTR 23- Results Not on fileafter 09/25/2017 Insurance Payer Benefit Plan / Group Subscriber ID Type Phone Address MEDICARE MEDICARE PART A xxxxxxxxxx Medicare [employer] - MGD CARE [employer] HMO POS QPOS xxxxxxxxxx HMO/POS [phone] (Work) Advance Directives For more information, please contact:[facility] [place], [place] [phone] Code Status Date Activated Date Inactivated Comments Full Code 12/08/2016 3:33 PM 12/09/2016 7:07 PM This code status was determined by: Patient Full Code 12/08/2016 5:23 AM 12/08/2016 3:33 PM This code status was determined by: Patient
--- OUTSIDE RECORDS SUMMARY | 2018-09-26 17:45 | XMS REPORT ---
:1940 Author Organization [facility] Address [address] [place] [address] Care Team Providers Name Role Phone PATRIC [...] Comments SODIUM (BEAKER) (test 138 meq/L 136-145 rvlu=750) POTASSIUM (BEAKER) (test 4.2 meq/L 3.5-5.1 uisj=180) CHLORIDE (BEAKER) (test 109 meq/L 98-107 arrx=801) CO2 (BEAKER) (test oapp=867) 23 meq/L 22-29 BLOOD UREA NITROGEN (BEAKER) 16 mg/dL 7-21 (test ixqx=598) CREATININE (BEAKER) (test 1.15 mg/dL 0.57-1.25 cizm=505) GLUCOSE RANDOM (BEAKER) 127 mg/dL 70-105 (test ezhx=146) CALCIUM (BEAKER) (test 8.3 mg/dL 8.4-10.2 pldb=370) EGFR (BEAKER) (test 62 mL/min/1.73 sq m ESTIMATED GFR IS NOT yrsm=7920) ACCURATE CREATININE CLEARANCE IN PREDICTING GLOMERULAR FILTRATION RATE. ESTIMATED GFR IS NOT APPLICABLE FOR DIALYSIS PATIENTS. HEPATITIS B SURFACE [id number] 06:15:00 Test Item Value Reference Range Comments HEPATITIS B SURFACE ANTIGEN (2) (BEAKER) (test Nonreactive Nonreactive gjql=4414) For chronic HD patients, draw HBsAg with each admission then every 30 days.CBC W /PLT COUNT & AUTO [id number] 05:45:00 Test Item Value Reference Range Comments WHITE BLOOD CELL COUNT (BEAKER) (test lexe=457) 9.8 K/ L 3.5-10.5 RED BLOOD CELL COUNT (BEAKER) (test klbe=681) 3.84 M/ L 4.63-6.08 HEMOGLOBIN (BEAKER) (test goqr=165) 11.5 GM/DL 13.7-17.5 HEMATOCRIT (BEAKER) (test hpio=640) 34.0 % 40.1-51.0 MEAN CORPUSCULAR VOLUME (BEAKER) (test aldc=116) 88.5 fL 79.0-92.2 MEAN CORPUSCULAR HEMOGLOBIN (BEAKER) (test 29.9 pg 25.7-32.2 kmev=457) MEAN CORPUSCULAR HEMOGLOBIN CONC (BEAKER) (test 33.8 GM/DL 32.3-36.5 sung=817) RED CELL DISTRIBUTION WIDTH (BEAKER) (test 14.0 % 11.6-14.4 isdi=834) PLATELET COUNT (BEAKER) (test hzgc=740) 99 K/CU MM 150-450 MEAN PLATELET VOLUME (BEAKER) (test fyna=177) 10.9 fL 9.4-12.4 NUCLEATED RED BLOOD CELLS (BEAKER) (test 0 /100 WBC 0-0 njxl=041) NEUTROPHILS RELATIVE PERCENT (BEAKER) (test 70 % entw=124) LYMPHOCYTES RELATIVE PERCENT (BEAKER) (test 18 % cqei=005) MONOCYTES RELATIVE PERCENT (BEAKER) (test 11 % olqb=842) EOSINOPHILS RELATIVE PERCENT (BEAKER) (test 1 % rrgd=835) BASOPHILS RELATIVE PERCENT (BEAKER) (test 0 % xqjk=605) NEUTROPHILS ABSOLUTE COUNT (BEAKER) (test 6.87 K/ L 1.78-5.38 bpsr=237) LYMPHOCYTES ABSOLUTE COUNT (BEAKER) (test 1.77 K/ L 1.32-3.57 vqaf=017) MONOCYTES ABSOLUTE COUNT (BEAKER) (test adon=693) 1.04 K/ L 0.30-0.82 EOSINOPHILS ABSOLUTE COUNT (BEAKER) (test 0.07 K/ L 0.04-0.54 ymux=606) BASOPHILS ABSOLUTE COUNT (BEAKER) (test ertm=102) 0.02 K/ L 0.01-0.08 IMMATURE GRANULOCYTES-RELATIVE PERCENT (BEAKER) 0 % 0-1 (test kxah=6828) [id number] 11:14:00 Test Item Value Reference Range Comments ACTIVATED CLOTTING TIME [address] [facility] [address] (BEAKER) (test wkbm=087) [facility] [address] SODIUM NA-STAT [id number] 10:49:00 Test Item Value Reference Range Comments SODIUM (BEAKER) (test awvz=826) 136 meq/L 135-148 POTASSIUM-STAT [id number] 10:49:00 Test Item Value Reference Range Comments POTASSIUM (BEAKER) (test rcyt=885) 4.1 meq/L 3.6-5.5 BLOOD GAS, [id number] 10:49:00 Test Item Value Reference Range Comments PH ARTERIAL (BEAKER) (test uook=586) 7.28 7.35-7.45 PCO2 ARTERIAL (BEAKER) (test byxh=970) 50 mmHg 35-45 PO2 ARTERIAL (BEAKER) (test wias=457) 73 mmHg 80-90 O2 SATURATION ARTERIAL (BEAKER) (test uyuu=741) 92.5 % 96.0-97.0 HCO3 ARTERIAL (BEAKER) (test uhvi=332) 23 mmol/L 21-29 BASE EXCESS ARTERIAL (BEAKER) (test cjtn=107) -4.1 mmol/L -2.0-3.0 PATIENT TEMPERATURE (BEAKER) (test itfj=6562) 37.0 C FIO2 (BEAKER) (test ijib=3063) 21.0 % GLUCOSE-STAT [id number] 10:49:00 Test Item Value Reference Range Comments GLUCOSE RANDOM (BEAKER) (test safs=390) 143 mg/dL 70-110 HGB/HCT (H&H) - STAT [id number] 10:49:00 Test Item Value Reference Range Comments HEMOGLOBIN (BEAKER) (test lmcc=979) 11.4 g/dL 13.0-16.8 HEMATOCRIT (BEAKER) (test jenn=351) 34.0 % 40.0-50.0 [id number] 10:01:00 Test Item Value Reference Range Comments ACTIVATED CLOTTING TIME 246 sec TESTED AT [place] [id number] (BEAKER) (test dtlt=611) [place] [address] [id number] 09:49:00 Test Item Value Reference Range Comments ACTIVATED CLOTTING TIME [address] [facility] [address] (BEAKER) (test kanu=120) [place] [address] (MANUAL DIFFERENTIAL)2016-12-05 18:40:00 Test Item Value Reference Range Comments NEUTROPHILS - REL (DIFF) 45 % (BEAKER) (test hqwh=4852) LYMPHOCYTES - REL (DIFF) 36 % (BEAKER) (test cjtp=3999) MONOCYTES - REL (DIFF) (BEAKER) 5 % (test mrma=1083) EOSINOPHILS - REL (DIFF) 8 % (BEAKER) (test gkma=8015) BASOPHILS - REL (DIFF) (BEAKER) 2 % (test ehar=8802) METAMYELOCYTES-REL (DIFF) 1 % 0-0 (BEAKER) (test fojz=971) MYELOCYTES-REL (DIFF) (BEAKER) 2 % 0-0 (test chvh=3176) BANDS - REL (DIFF) (BEAKER) 1 % 0-10 (test fhss=3688) NEUTROPHILS - ABS (DIFF) 2.79 K/ L 1.80-8.00 (BEAKER) (test cksc=5310) LYMPHOCYTES - ABS (DIFF) 2.23 K/ L 1.48-4.50 (BEAKER) (test iehx=3548) MONOCYTES - ABS (DIFF) (BEAKER) 0.31 K/ L 0.00-1.30 (test eskw=5407) EOSINOPHILS - ABS (DIFF) 0.50 K/ L 0.00-0.50 (BEAKER) (test yhbs=5870) BASOPHILS - ABS (DIFF) (BEAKER) 0.12 K/ L 0.00-0.20 (test emvm=4087) METAMYELOCTYES - ABS (DIFF) 0.06 K/ L 0.00-0.00 (BEAKER) (test etbl=181) BANDS-ABS (DIFF) (BEAKER) (test 0.1 K/ L 0.0-0.8 tfjk=5986) MYELOCYTES-ABS (DIFF) (BEAKER) 0.12 K/ L 0.00-0.00 (test jbks=1673) TOTAL COUNTED (BEAKER) (test 100 thuo=7220) BANDS + SEGMENTED NEUTROPHILS 2.85 (BEAKER) (test kgaf=9268) WBC MORPHOLOGY (BEAKER) (test Normal ehvk=176) PLT MORPHOLOGY (BEAKER) (test Normal hbkr=488) OVALOCYTES (BEAKER) (test 1+ few This is a corrected result. oipj=000) Previous result was 2+ moderate on 12/05/2016 at 1824 CDT POIKILOCYTES (BEAKER) (test 1+ few ptir=806) Called to RN at 1831.CBC W/PLT COUNT & AUTO [id number] 18:18:00 Test Item Value Reference Range Comments WHITE BLOOD CELL COUNT (BEAKER) (test osun=018) 6.2 K/ L 3.5-10.5 RED BLOOD CELL COUNT (BEAKER) (test avau=876) 4.52 M/ L 4.63-6.08 HEMOGLOBIN (BEAKER) (test vldh=321) 13.6 GM/DL 13.7-17.5 HEMATOCRIT (BEAKER) (test sozb=575) 39.6 % 40.1-51.0 MEAN CORPUSCULAR VOLUME (BEAKER) (test ciok=728) 87.6 fL 79.0-92.2 MEAN CORPUSCULAR HEMOGLOBIN (BEAKER) (test 30.1 pg 25.7-32.2 sacl=901) MEAN CORPUSCULAR HEMOGLOBIN CONC (BEAKER) (test 34.3 GM/DL 32.3-36.5 gijg=123) RED CELL DISTRIBUTION WIDTH (BEAKER) (test 13.4 % 11.6-14.4 auvf=436) PLATELET COUNT (BEAKER) (test vbxr=323) 140 K/CU MM 150-450 MEAN PLATELET VOLUME (BEAKER) (test btfv=755) 10.9 fL 9.4-12.4 NUCLEATED RED BLOOD CELLS (BEAKER) (test 0 /100 WBC 0-0 bicd=928) IMMATURE GRANULOCYTES-RELATIVE PERCENT (BEAKER) 0 % 0-1 (test griu=3727) B-TYPE NATRIURETIC FACTOR (BNP)2016-12-05 15:18:00 Test Item Value Reference Range Comments B-TYPE NATRIURETIC PEPTIDE (BEAKER) (test 135 pg/mL 0-100 ccvg=170) BASIC METABOLIC [id number] 15:11:00 Test Item Value Reference Range Comments SODIUM (BEAKER) (test 137 meq/L 136-145 upge=262) POTASSIUM (BEAKER) (test 4.2 meq/L 3.5-5.1 mslv=202) CHLORIDE (BEAKER) (test 108 meq/L 98-107 jaob=964) CO2 (BEAKER) (test 22 meq/L 22-29 mspr=230) BLOOD UREA NITROGEN 16 mg/dL 7-21 (BEAKER) (test hpgw=538) CREATININE (BEAKER) (test 0.97 mg/dL 0.57-1.25 qmnw=037) GLUCOSE RANDOM (BEAKER) 93 mg/dL 70-105 (test vyru=735) CALCIUM (BEAKER) (test 9.3 mg/dL 8.4-10.2 rxgl=778) EGFR (BEAKER) (test 76 mL/min/1.73 sq m ESTIMATED GFR IS NOT xfqq=5417) ACCURATE CREATININE CLEARANCE IN PREDICTING GLOMERULAR FILTRATION RATE. ESTIMATED GFR IS NOT APPLICABLE FOR DIALYSIS PATIENTS. [id number] 15:11:00 Test Item Value Reference Range Comments ALBUMIN (BEAKER) (test appy=2476) 4.0 g/dL 3.5-5.0 PROTHROMBIN TIME/[id number] 15:10:00 Test Item Value Reference Range Comments PROTIME (BEAKER) (test vycm=242) 14.9 seconds 11.7-14.7 INR (BEAKER) (test gsrh=677) 1.2 <=5.9 RECOMMENDED COUMADIN/WARFARIN INR THERAPY RANGESSTANDARD DOSE: 2.0 - 3.0 Includes: PROPHYLAXIS forvenous thrombosis, systemic embolization; TREATMENT for venous thrombosis and/or pulmonary embolus.HIGH RISK: Target INR is 2.5-3.5 for patients with mechanical heart valves.[id number] 13:21:00 Test Item Value Reference Range Comments POC-CREATININE (BEAKER) 1.1 mg/dL 0.6-1.[address] [facility] [address] [facility] (test xeiv=8513) [facility] [address] POC-EGFR (BEAKER) (test 65 mL/min/1.73M2 mbda=8508)
--- NOTE | 2018-09-26 19:01 | EDPHYS ---
Physician Documentation [facility] Name: Marcel Hein Age: 78 yrs Sex: Male : 1940 Arrival Date: 09/26/2018 Time: 17:47 Bed 20 Private MD: Lino Salinas ED Physician Kevin Santa HPI: 09/26 17:51 This 78 yrs old Male presents to ER via Ambulatory with complaints of Ingrown jmm Toenail. 17:51 The patient presents with pain, swelling. Onset: The symptoms/episode began/occurred jmm gradually, 3 week(s) ago. Modifying factors: The symptoms are alleviated by nothing, the symptoms are aggravated by nothing. Associated signs and symptoms: Pertinent negatives: fever. This is a 78 year old male with a history of CAD, GERD, HLP, HTN that presents to the ED with complaints of pain and swelling to his right great toe for the past 3 weeks. Patient denies fever. Denies drainage. Patient has appt scheduled this Monday for further evaluation. . Historical: - Allergies: 17:49 No Known Allergies; aa5 - Home Meds: 17:50 amlodipine 5 mg tab 1 tab once daily [Active]; aspirin 81 mg Oral chew 1 tab once daily aa5 [Active]; clopidogrel 75 mg Oral tab 1 tab once daily [Active]; losartan 100 mg Oral tab 1 tab once daily [Active]; losartan-hydrochlorothiazide 100-25 mg Oral tab 1 tab once daily [Active]; metoprolol tartrate 25 mg Oral tab 1 tab 2 times per day [Active]; omeprazole 40 mg Oral cpDR before meals [Active]; pravastatin 40 mg Oral tab 1 tab once daily [Active]; - PMHx: 17:49 CAD; GERD; High Cholesterol; Hypertension; aa5 - PSHx: 17:49 Valve Replacement; aa5 - Immunization history:: Adult Immunizations unknown. - Social history:: Smoking status: Patient/guardian denies using tobacco. - Ebola Screening: : No symptoms or risks identified at this time. ROS: 17:51 Constitutional: Negative for fever, chills, and weight loss, Cardiovascular: Negative jmm for chest pain, palpitations, and edema, Respiratory: Negative for shortness of breath, cough, wheezing, and pleuritic chest pain. 17:51 MS/extremity: Positive for erythema, pain, swelling. 17:51 Skin: Positive for erythema. 17:51 All other systems are negative. Exam: 17:51 Constitutional: This is a well developed, well nourished patient who is awake, alert, jmm and in no acute distress. Head/Face: atraumatic. Eyes: EOMI, no conjunctival erythema appreciated ENT: Moist Mucus Membranes Neck: Trachea midline, Supple Chest/axilla: Normal chest wall appearance and motion. Cardiovascular: Regular rate and rhythm. No edema appreciated Respiratory: Normal respirations, no respiratory distress appreciated Abdomen/GI: Non distended, soft 17:51 Skin: erythema noted surrounding the right great toe nail plate, mildly tender to palpation, no drainage appreciated. 17:51 Neuro: Orientation: is normal, Mentation: is normal, Memory: is normal, Gait: is steady. 17:51 Psych: Behavior/mood is pleasant, cooperative. Vital Signs: 17:50 BP 138 / 49; Pulse 66; Resp 16 S; Temp 98.3(TE); Pulse Ox 98% on R/A; Weight 68.04 kg aa5 (R); Height 5 ft. 5 in. (165.10 cm) (R); Pain 10/10; 17:50 Body Mass Index 24.96 (68.04 kg, 165.10 cm) aa5 MDM: 17:51 Patient medically screened. [facility] 17:59 Data reviewed: vital signs, nurses notes. Counseling: I had a detailed discussion with jmm the patient and/or guardian regarding: the historical points, exam findings, and any diagnostic results supporting the discharge/admit diagnosis, the need for outpatient follow up, to return to the emergency department if symptoms worsen or persist or if there are any questions or concerns that arise at home. 18:10 ED course: Patient is alert and non toxic in appearance in the ED. Patient is advised [facility] to follow up with pcp and otherwise given strict return precautions. patient understood and agrees with the plan of care. . Administered Medications: No medications were administered Disposition: 18:30 Co-signature as Attending Physician, Kevin Santa MD. rn Disposition: 09/26/18 18:00 Discharged to Home. Impression: Ingrowing nail. - Condition is Stable. - Discharge Instructions: Ingrown Toenail. - Prescriptions for Cephalexin 500 mg Oral Capsule - take 1 capsule by ORAL route every 6 hours for 10 days; 40 capsule. - Medication Reconciliation Form, Thank You Letter, Antibiotic Education, Prescription Opioid Use form. - Follow up: Lino Salinas MD; When: 2 - 3 days; Reason: Recheck today's complaints, Continuance of care, Re-evaluation by your physician. Signatures: Nathan Boland PA PA jmm Nieto, Roman, MD MD rn Jennie Clark RN RN aa5 Que Mcgee RN RN bp Corrections: (The following items were deleted from the chart) 18:06 18:00 09/26/2018 18:00 Discharged to Home. Impression: Ingrowing nail. Condition is bp Stable. Forms are Medication Reconciliation Form, Thank You Letter, Antibiotic Education, Prescription Opioid Use. Follow up: Lino Salinas; When: 2 - 3 days; Reason: Recheck today's complaints, Continuance of care, Re-evaluation by your physician. henok
--- NOTE | 2018-09-26 19:02 | ER ---
Nurse's Notes [facility] Name: Marcel Hein Age: 78 yrs Sex: Male : 1940 Arrival Date: 09/26/2018 Time: 17:47 Bed 20 Private MD: Lino Salinas Diagnosis: Ingrowing nail Presentation: 09/26 17:48 Presenting complaint: Patient states: ingrown toenail to right great toe that began 3 aa5 weeks ago. Pt c/o pain to site. Transition of care: patient was not received from another setting of care. Onset of symptoms was August 2018. Risk Assessment: Do you want to hurt yourself or someone else? Patient reports no desire to harm self or others. Initial Sepsis Screen: Does the patient meet any 2 criteria? No. Patient's initial sepsis screen is negative. Does the patient have a suspected source of infection? No. Patient's initial sepsis screen is negative. Care prior to arrival: None. 17:48 Method Of Arrival: Ambulatory aa5 17:48 Acuity: CHAD 4 aa5 Triage Assessment: 17:50 General: Appears in no apparent distress. comfortable, Behavior is calm, cooperative, bp appropriate for age. Pain: Denies pain. EENT: No deficits noted. Neuro: No deficits noted. Cardiovascular: No deficits noted. Respiratory: No deficits noted. GI: No signs and/or symptoms were reported involving the gastrointestinal system. : No signs and/or symptoms were reported regarding the genitourinary system. Derm: No deficits noted. Musculoskeletal: No deficits noted. Historical: - Allergies: 17:49 No Known Allergies; aa5 - Home Meds: 17:50 amlodipine 5 mg tab 1 tab once daily [Active]; aspirin 81 mg Oral chew 1 tab once daily aa5 [Active]; clopidogrel 75 mg Oral tab 1 tab once daily [Active]; losartan 100 mg Oral tab 1 tab once daily [Active]; losartan-hydrochlorothiazide 100-25 mg Oral tab 1 tab once daily [Active]; metoprolol tartrate 25 mg Oral tab 1 tab 2 times per day [Active]; omeprazole 40 mg Oral cpDR before meals [Active]; pravastatin 40 mg Oral tab 1 tab once daily [Active]; - PMHx: 17:49 CAD; GERD; High Cholesterol; Hypertension; aa5 - PSHx: 17:49 Valve Replacement; aa5 - Immunization history:: Adult Immunizations unknown. - Social history:: Smoking status: Patient/guardian denies using tobacco. - Ebola Screening: : No symptoms or risks identified at this time. Screenin:05 Abuse screen: Denies threats or abuse. Denies injuries from another. Nutritional bp screening: No deficits noted. Tuberculosis screening: No symptoms or risk factors identified. Fall Risk None identified. Assessment: 18:05 Reassessment: PT D/C HOME AMBULATORY WITH FAMILY, DX WITH INGROWN TOENAIL. bp Vital Signs: 17:50 BP 138 / 49; Pulse 66; Resp 16 S; Temp 98.3(TE); Pulse Ox 98% on R/A; Weight 68.04 kg aa5 (R); Height 5 ft. 5 in. (165.10 cm) (R); Pain 10/10; 17:50 Body Mass Index 24.96 (68.04 kg, 165.10 cm) [facility] ED Course: 17:47 Patient arrived in ED. as 17:48 Lino Salinas MD is Private Physician. as 17:48 [facility] 17:48 Kevin Santa MD is Attending Physician. [facility] 17:49 Triage completed. aa5 17:49 Arm band placed on. aa 17:55 Que Mcgee, [place] is Primary Nurse. bp 17:59 Lino Salinas MD is Referral Physician. [facility] 18:05 Patient has correct armband on for positive identification. Call light in reach. Side bp rails up X 1. Adult w/ patient. 18:05 No provider procedures requiring assistance completed. Patient did not have IV access bp during this emergency room visit. Administered Medications: No medications were administered Outcome: 18:00 Discharge ordered by . [facility] 18:05 Discharged to home ambulatory, with family. bp 18:05 Condition: stable 18:05 Discharge instructions given to patient, Instructed on discharge instructions, follow up and referral plans. medication usage, Demonstrated understanding of instructions, follow-up care, medications, Prescriptions given X 1. 18:06 Patient left the ED. bp Signatures: Nathan Boland PA PA Roxana Monae Audri, RN RN [facility] Que Mcgee, [place] RN bp Corrections: (The following items were deleted from the chart) 17:50 17:50 BP 138 / 49; Pulse 66bpm; Resp 16bpm; Spontaneous; Pulse Ox 98% RA; Temp 98.3F aa5 Temporal; 68.04 kg Reported; Height 5 ft. 5 in. Reported; BMI: 24.9; aa5
== END 2018-09-26 18:06 | disposition home or self-care (01) ==
LOC: ER 17:42
DX: L60.0 Ingrowing nail (principal); I10 Essential (primary) hypertension; E78.00 Pure hypercholesterolemia, unspecified; I25.10 Atherosclerotic heart disease of native coronary artery without angina pectoris; Z79.82 Long term (current) use of aspirin; Z95.4 Presence of other heart-valve replacement
CPT/HCPCS: 99282

== ENCOUNTER 2019-01-09 06:35 | Day surgery (SDC) | payer OTHER ==
[2019-01-07 16:27] LABS: Absolute Lymphocytes (CBC) 2.6 K/uL (0.7-4.9); Basophils % 0.6 % (0-1.3); Hematocrit 37.1 % (39.6-49.0); Lymphocytes % 34.7 % (15.3-44.8); MPV 8.6 fL (7.6-11.3); RBC Red Blood Cell Count 4.16 M/uL (4.33-5.43)
--- NOTE | 2019-01-07 16:36 | EKG ---
Test Date: 2019-01-07 Test Time: 15:44:48 Lock Tender Chief Operator: NADEEM MEASUREMENT RESULTS: Intervals: Rate: 54 MN: 150 QRSD: 170 QT: 496 QTc: 470 Blanchard: P: 31 MN: 150 QRS: 120 T: 3 INTERPRETIVE STATEMENTS: Sinus bradycardia Right axis deviation Left bundle branch block Abnormal ECG Compared to ECG 10/14/2016 09:39:41 Right-axis deviation now present Left-axis deviation no longer present Electronically Signed On 01-07-19 16:35:31 CDT by Prabhjot Nunes
[2019-01-07 16:46] LABS: Potassium 3.9 mmol/L (3.5-5.1)
[2019-01-07 16:57] LABS: Protime INR 0.99
[2019-01-09] MEDS ORDERED: NA CHLORIDE 0.9% 500 ML ONE (07:18)
[2019-01-09] MEDS ORDERED: HEPA 1000U/500MLS 1,000 UNIT/500 ML BAG IV ONE ×2 (09:11→09:25)
[2019-01-09] MEDS ORDERED: HEPARIN 5000 UNIT/ML 1 ML VIAL ONE (09:12)
[2019-01-09] MEDS ORDERED: MIDAZOLAM HCL 2 MG/2 ML INJ ONE ×2 (09:12→10:20)
[2019-01-09] MEDS ORDERED: FENTANYL CITR 100 MCG/2 ML ONE (09:12)
[2019-01-09] MEDS ORDERED: ATROPINE SULF 1 MG/10 ML SYR IV ONE (09:12)
[2019-01-09 13:00] VITALS: TEMP 97
[2019-01-09 16:08] VITALS: O2SAT 950
[2019-01-09] MEDS ORDERED: PRASUGREL (EFFIENT) 10 MG TAB ONE (16:54)
[2019-01-09 18:17] VITALS: BP 134/58
--- NOTE | 2019-01-09 21:53 | OP ---
Surgeon: Prabhjot Nunes MD Procedure: Abdominal aortogram with runoffs and percutaneous angioplasty with stent of the right com mon femoral artery. 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 After the stent, there was about a 20% residual stenosis. Procedure In Detail: Patient was brought to the cardiac pathology laboratory director fasting, sedated with Versed and fe ntanyl. Left femoral artery was entered with a needle. A NearbyNow wire was used to cannulate the a zohreh from the iliac artery. We then placed a 4-Upper Sorbian sheath. We were able to put a pigtail cathete r into the aorta and we took injections identifying the lesions. An angled view of the right iliac a nd common femoral artery was done using the selective angiogram of the ISLAS catheter. We were unable to go up and over with a wire, so in order to dilate the lesion, which is very close to where we usu ally put needles in 4 sheaths. We had to enter the right common femoral artery, which gave us about a 4 cm leeway between the needle entry point and the lesion that was to be dilated. We did not put a sheath in place. The sheath would not have allowed us to dilate the lesion. After the wire cross t he lesion, we were able to demonstrate exactly where the lesion was. We used a 6.0 x 19 Omnilink bal loon with a stent on it, a balloon expandable stent. It was able to cross the lesion. We were able to confirm where the lesion was by injecting into the aorta. We dilated it to 14 atmospheres. At th e end of the procedure, the angiographic result was good, about 20% residual stenosis because of wher e it was and found difficult, would have been to post dilate. We decided to except a good success ra te and try not to make it look perfect. At the end of the procedure, all wires and catheters were wi thdrawn and both sides were closed using manual pressure. An attempt to put a StarClose device on th e right was unsuccessful, so manual pressure will be held on both sides. Right before the balloon wa s placed and the stent dilated and left in place, we gave 5000 units of heparin. The patient normall y takes aspirin and Plavix. He will continue that and I will visit with him in a couple weeks. We w ill see if our groin closures can be good enough that we will let him go home. If not, we will place him in a situation where he is an outpatient in a bed until tomorrow morning. ARA Voice ID: [id number] Report ID: [id number]
--- OUTSIDE RECORDS SUMMARY | 2019-02-02 22:36 | XMS REPORT ---
:1940 Author Organization [facility] Address [address] [place] [address] Care Team Providers Name Role Phone PATRIC [...] Comments SODIUM (BEAKER) (test 138 meq/L 136-145 vlrl=240) POTASSIUM (BEAKER) (test 4.2 meq/L 3.5-5.1 cvul=762) CHLORIDE (BEAKER) (test 109 meq/L 98-107 gkfm=540) CO2 (BEAKER) (test knrv=377) 23 meq/L 22-29 BLOOD UREA NITROGEN (BEAKER) 16 mg/dL 7-21 (test yzzz=628) CREATININE (BEAKER) (test 1.15 mg/dL 0.57-1.25 gbyq=610) GLUCOSE RANDOM (BEAKER) 127 mg/dL 70-105 (test oupj=719) CALCIUM (BEAKER) (test 8.3 mg/dL 8.4-10.2 rgff=931) EGFR (BEAKER) (test 62 mL/min/1.73 sq m ESTIMATED GFR IS NOT qkur=6308) ACCURATE CREATININE CLEARANCE IN PREDICTING GLOMERULAR FILTRATION RATE. ESTIMATED GFR IS NOT APPLICABLE FOR DIALYSIS PATIENTS. HEPATITIS B SURFACE [id number] 06:15:00 Test Item Value Reference Range Comments HEPATITIS B SURFACE ANTIGEN (2) (BEAKER) (test Nonreactive Nonreactive xjej=6665) For chronic HD patients, draw HBsAg with each admission then every 30 days.CBC W /PLT COUNT & AUTO [id number] 05:45:00 Test Item Value Reference Range Comments WHITE BLOOD CELL COUNT (BEAKER) (test mkwo=129) 9.8 K/ L 3.5-10.5 RED BLOOD CELL COUNT (BEAKER) (test nvvy=623) 3.84 M/ L 4.63-6.08 HEMOGLOBIN (BEAKER) (test pxbj=692) 11.5 GM/DL 13.7-17.5 HEMATOCRIT (BEAKER) (test tspd=289) 34.0 % 40.1-51.0 MEAN CORPUSCULAR VOLUME (BEAKER) (test jcxz=294) 88.5 fL 79.0-92.2 MEAN CORPUSCULAR HEMOGLOBIN (BEAKER) (test 29.9 pg 25.7-32.2 jtno=860) MEAN CORPUSCULAR HEMOGLOBIN CONC (BEAKER) (test 33.8 GM/DL 32.3-36.5 jlkl=231) RED CELL DISTRIBUTION WIDTH (BEAKER) (test 14.0 % 11.6-14.4 eksa=233) PLATELET COUNT (BEAKER) (test edgs=491) 99 K/CU MM 150-450 MEAN PLATELET VOLUME (BEAKER) (test rbjq=239) 10.9 fL 9.4-12.4 NUCLEATED RED BLOOD CELLS (BEAKER) (test 0 /100 WBC 0-0 zwbi=104) NEUTROPHILS RELATIVE PERCENT (BEAKER) (test 70 % efaq=902) LYMPHOCYTES RELATIVE PERCENT (BEAKER) (test 18 % uuzo=890) MONOCYTES RELATIVE PERCENT (BEAKER) (test 11 % dkhg=518) EOSINOPHILS RELATIVE PERCENT (BEAKER) (test 1 % jriv=221) BASOPHILS RELATIVE PERCENT (BEAKER) (test 0 % hjny=036) NEUTROPHILS ABSOLUTE COUNT (BEAKER) (test 6.87 K/ L 1.78-5.38 hoyl=071) LYMPHOCYTES ABSOLUTE COUNT (BEAKER) (test 1.77 K/ L 1.32-3.57 axna=138) MONOCYTES ABSOLUTE COUNT (BEAKER) (test yzub=919) 1.04 K/ L 0.30-0.82 EOSINOPHILS ABSOLUTE COUNT (BEAKER) (test 0.07 K/ L 0.04-0.54 stkv=700) BASOPHILS ABSOLUTE COUNT (BEAKER) (test ggxe=382) 0.02 K/ L 0.01-0.08 IMMATURE GRANULOCYTES-RELATIVE PERCENT (BEAKER) 0 % 0-1 (test lywd=7294) [id number] 11:14:00 Test Item Value Reference Range Comments ACTIVATED CLOTTING TIME [address] [facility] [address] (BEAKER) (test ndag=699) [facility] [address] SODIUM NA-STAT [id number] 10:49:00 Test Item Value Reference Range Comments SODIUM (BEAKER) (test pnzx=828) 136 meq/L 135-148 POTASSIUM-STAT [id number] 10:49:00 Test Item Value Reference Range Comments POTASSIUM (BEAKER) (test ioqz=408) 4.1 meq/L 3.6-5.5 BLOOD GAS, [id number] 10:49:00 Test Item Value Reference Range Comments PH ARTERIAL (BEAKER) (test bywv=190) 7.28 7.35-7.45 PCO2 ARTERIAL (BEAKER) (test rums=756) 50 mmHg 35-45 PO2 ARTERIAL (BEAKER) (test chch=344) 73 mmHg 80-90 O2 SATURATION ARTERIAL (BEAKER) (test lcmj=790) 92.5 % 96.0-97.0 HCO3 ARTERIAL (BEAKER) (test rxhk=078) 23 mmol/L 21-29 BASE EXCESS ARTERIAL (BEAKER) (test vvmp=379) -4.1 mmol/L -2.0-3.0 PATIENT TEMPERATURE (BEAKER) (test zcal=3076) 37.0 C FIO2 (BEAKER) (test rdug=4585) 21.0 % GLUCOSE-STAT [id number] 10:49:00 Test Item Value Reference Range Comments GLUCOSE RANDOM (BEAKER) (test vtmg=592) 143 mg/dL 70-110 HGB/HCT (H&H) - STAT [id number] 10:49:00 Test Item Value Reference Range Comments HEMOGLOBIN (BEAKER) (test sldh=587) 11.4 g/dL 13.0-16.8 HEMATOCRIT (BEAKER) (test fxvq=811) 34.0 % 40.0-50.0 [id number] 10:01:00 Test Item Value Reference Range Comments ACTIVATED CLOTTING TIME [address] [facility] [address] (BEAKER) (test wwwi=498) [place] [id number] 09:49:00 Test Item Value Reference Range Comments ACTIVATED CLOTTING TIME 186 sec TESTED AT [facility] [address] (BEAKER) (test hait=819) [facility] [address] (MANUAL DIFFERENTIAL)2016-12-05 18:40:00 Test Item Value Reference Range Comments NEUTROPHILS - REL (DIFF) 45 % (BEAKER) (test nxnr=0167) LYMPHOCYTES - REL (DIFF) 36 % (BEAKER) (test vxdk=4701) MONOCYTES - REL (DIFF) (BEAKER) 5 % (test hqgf=9282) EOSINOPHILS - REL (DIFF) 8 % (BEAKER) (test gnad=5573) BASOPHILS - REL (DIFF) (BEAKER) 2 % (test nhma=6040) METAMYELOCYTES-REL (DIFF) 1 % 0-0 (BEAKER) (test qpmm=815) MYELOCYTES-REL (DIFF) (BEAKER) 2 % 0-0 (test fjyy=9072) BANDS - REL (DIFF) (BEAKER) 1 % 0-10 (test amgm=3366) NEUTROPHILS - ABS (DIFF) 2.79 K/ L 1.80-8.00 (BEAKER) (test lwmb=6202) LYMPHOCYTES - ABS (DIFF) 2.23 K/ L 1.48-4.50 (BEAKER) (test ieat=6555) MONOCYTES - ABS (DIFF) (BEAKER) 0.31 K/ L 0.00-1.30 (test cuax=5306) EOSINOPHILS - ABS (DIFF) 0.50 K/ L 0.00-0.50 (BEAKER) (test ofxs=9711) BASOPHILS - ABS (DIFF) (BEAKER) 0.12 K/ L 0.00-0.20 (test mptb=6733) METAMYELOCTYES - ABS (DIFF) 0.06 K/ L 0.00-0.00 (BEAKER) (test mkgh=437) BANDS-ABS (DIFF) (BEAKER) (test 0.1 K/ L 0.0-0.8 hqcw=4286) MYELOCYTES-ABS (DIFF) (BEAKER) 0.12 K/ L 0.00-0.00 (test hobr=8061) TOTAL COUNTED (BEAKER) (test 100 nsiz=0126) BANDS + SEGMENTED NEUTROPHILS 2.85 (BEAKER) (test qusl=2733) WBC MORPHOLOGY (BEAKER) (test Normal nrsq=369) PLT MORPHOLOGY (BEAKER) (test Normal aiwx=106) OVALOCYTES (BEAKER) (test 1+ few This is a corrected result. pdst=182) Previous result was 2+ moderate on 12/05/2016 at 1824 CDT POIKILOCYTES (BEAKER) (test 1+ few mjbg=513) Called to RN at 1831.CBC W/PLT COUNT & AUTO [id number] 18:18:00 Test Item Value Reference Range Comments WHITE BLOOD CELL COUNT (BEAKER) (test smws=601) 6.2 K/ L 3.5-10.5 RED BLOOD CELL COUNT (BEAKER) (test utru=972) 4.52 M/ L 4.63-6.08 HEMOGLOBIN (BEAKER) (test wxls=610) 13.6 GM/DL 13.7-17.5 HEMATOCRIT (BEAKER) (test epww=847) 39.6 % 40.1-51.0 MEAN CORPUSCULAR VOLUME (BEAKER) (test cozb=919) 87.6 fL 79.0-92.2 MEAN CORPUSCULAR HEMOGLOBIN (BEAKER) (test 30.1 pg 25.7-32.2 gmjl=532) MEAN CORPUSCULAR HEMOGLOBIN CONC (BEAKER) (test 34.3 GM/DL 32.3-36.5 iatw=007) RED CELL DISTRIBUTION WIDTH (BEAKER) (test 13.4 % 11.6-14.4 nvfu=899) PLATELET COUNT (BEAKER) (test htpx=549) 140 K/CU MM 150-450 MEAN PLATELET VOLUME (BEAKER) (test uhes=932) 10.9 fL 9.4-12.4 NUCLEATED RED BLOOD CELLS (BEAKER) (test 0 /100 WBC 0-0 frag=697) IMMATURE GRANULOCYTES-RELATIVE PERCENT (BEAKER) 0 % 0-1 (test qyue=1141) B-TYPE NATRIURETIC FACTOR (BNP)2016-12-05 15:18:00 Test Item Value Reference Range Comments B-TYPE NATRIURETIC PEPTIDE (BEAKER) (test 135 pg/mL 0-100 hvtd=715) BASIC METABOLIC [id number] 15:11:00 Test Item Value Reference Range Comments SODIUM (BEAKER) (test 137 meq/L 136-145 rehs=032) POTASSIUM (BEAKER) (test 4.2 meq/L 3.5-5.1 zzoz=989) CHLORIDE (BEAKER) (test 108 meq/L 98-107 lixh=367) CO2 (BEAKER) (test 22 meq/L 22-29 ydjw=700) BLOOD UREA NITROGEN 16 mg/dL 7-21 (BEAKER) (test iorz=715) CREATININE (BEAKER) (test 0.97 mg/dL 0.57-1.25 vekh=327) GLUCOSE RANDOM (BEAKER) 93 mg/dL 70-105 (test saev=793) CALCIUM (BEAKER) (test 9.3 mg/dL 8.4-10.2 pxbr=109) EGFR (BEAKER) (test 76 mL/min/1.73 sq m ESTIMATED GFR IS NOT xtyk=1914) ACCURATE CREATININE CLEARANCE IN PREDICTING GLOMERULAR FILTRATION RATE. ESTIMATED GFR IS NOT APPLICABLE FOR DIALYSIS PATIENTS. [id number] 15:11:00 Test Item Value Reference Range Comments ALBUMIN (BEAKER) (test jpim=2988) 4.0 g/dL 3.5-5.0 PROTHROMBIN [id number] 15:10:00 Test Item Value Reference Range Comments PROTIME (BEAKER) (test kzsd=841) 14.9 seconds 11.7-14.7 INR (BEAKER) (test vhbf=180) 1.2 <=5.9 RECOMMENDED COUMADIN/WARFARIN INR THERAPY RANGESSTANDARD DOSE: 2.0 - 3.0 Includes: PROPHYLAXIS forvenous thrombosis, systemic embolization; TREATMENT for venous thrombosis and/or pulmonary embolus.HIGH RISK: Target INR is 2.5-3.5 for patients with mechanical heart valves.[id number] 13:21:00 Test Item Value Reference Range Comments POC-CREATININE (BEAKER) 1.1 mg/dL 0.6-1.[address] [facility] [address] [facility] (test celd=2106) [facility] [id number] POC-EGFR (BEAKER) (test 65 mL/min/1.73M2 fmod=3583)
== END 2019-01-09 17:50 | disposition home or self-care (01) ==
LOC: CCL 06:35
PROVIDERS: ATTEND Internal Medicine
DX: I70.201 Unspecified atherosclerosis of native arteries of extremities, right leg (principal); I25.10 Atherosclerotic heart disease of native coronary artery without angina pectoris; I35.0 Nonrheumatic aortic (valve) stenosis; I10 Essential (primary) hypertension; E78.2 Mixed hyperlipidemia; K21.9 Gastro-esophageal reflux disease without esophagitis
CPT/HCPCS: 93005; 85025; 80048; 36415; 85610; 85730; 75630; 37226; C1893; C1725; J1644; J2250 ×2; J3010; J7040; 36200

== ENCOUNTER 2021-09-30 18:11 | Emergency (ER) | payer OTHER ==
--- NOTE | 2021-09-30 18:49 | EDPHYS ---
Physician Documentation [facility] Name: Marcel Hein Age: 81 yrs Sex: Male : 1940 Arrival Date: 09/30/2021 Time: 18:14 Bed Waiting Private MD: ED Physician Bernard Sanchez HPI: 09/30 18:49 This 81 yrs old Male presents to ER via Ambulatory with complaints of ms3 Abdominal Pain, Back Pain. 18:49 The patient presents with pain. ms3 18:49 The patient presents with pain. The complaints affect the left ear. Onset: The ms3 symptoms/episode began/occurred acutely. 18:49 Onset: The symptoms/episode began/occurred 2 day(s) ago. Modifying factors: The ms3 symptoms are alleviated by nothing, the symptoms are aggravated by nothing. Associated signs and symptoms: The patient has no apparent associated signs or symptoms. Severity of symptoms: At their worst the symptoms were moderate in the emergency department the symptoms are unchanged. Historical: - Allergies: 20:00 No Known Allergies; ld1 - PMHx: 20:00 CAD; GERD; High Cholesterol; Hypertension; ld1 - PSHx: 20:00 None; ld1 - Immunization history:: Adult Immunizations up to date, Client reports receiving the 2nd dose of the Covid vaccine. - Social history:: Smoking status: Patient denies any tobacco usage or history of. Patient/guardian denies using alcohol. ROS: 18:49 Constitutional: Negative for fever, and chills. Eyes: Negative for injury, pain, ms3 redness, and discharge. 18:49 Cardiovascular: Negative for chest pain, and palpitations. Respiratory: Negative for shortness of breath, cough, wheezing, and pleuritic chest pain, Abdomen/GI: Negative for abdominal pain, nausea, vomiting, diarrhea, and constipation, Back: Negative for injury and pain, MS/Extremity: Negative for injury and deformity, Skin: Negative for injury, rash, and discoloration, Neuro: Negative for headache, weakness, numbness, tingling. 18:49 ENT: Positive for ear pain. 18:49 All other systems are negative. Exam: 18:49 Constitutional: This is a well developed, well nourished patient who is awake, alert, ms3 and in no acute distress. Head/Face: Normocephalic, atraumatic. Eyes: Pupils equal round and reactive to light, extra-ocular motions intact. Lids and lashes normal. Conjunctiva and sclera are non-icteric and not injected. Periorbital areas with no swelling, redness, or edema. 18:49 Chest/axilla: Normal chest wall appearance and motion. Nontender with no deformity. Cardiovascular: Regular rate and rhythm with a normal S1 and S2. No gallops, murmurs, or rubs. Normal PMI, no JVD. No pulse deficits. Respiratory: Lungs have equal breath sounds bilaterally, clear to auscultation and percussion. No rales, rhonchi or wheezes noted. No increased work of breathing, no retractions or nasal flaring. Skin: Warm, dry with normal turgor. Normal color with no rashes, no lesions, and no evidence of cellulitis. MS/ Extremity: Pulses equal, no cyanosis. Neurovascular intact. Full, normal range of motion. 18:49 ENT: External ear(s): Ear canal(s): cerumen impaction, that is severe, that is hard, occluding the left ear canal, TM's: are normal, Left ear cerumen impaction. TM normal after impaction removed.. Vital Signs: 19:59 BP 139 / 86; Pulse 81; Resp 18; Temp 97.6(TE); Pulse Ox 100% on R/A; Weight 78.02 kg; ld1 Height 5 ft. 8 in. (172.72 cm); Pain 3/10; 19:59 Body Mass Index 26.15 (78.02 kg, 172.72 cm) ld1 Procedures: 18:49 Ear irrigation: Route left ear with Other Water with peroxide amount 500ml Patient ms3 tolerated well Ear curette used to assist in removal of cerumen impaction. MDM: 18:49 Patient medically screened. ms3 18:49 Differential diagnosis: otitis media, otitis externa, cerumen impaction. Data reviewed: ms3 vital signs, nurses notes, and as a result, I will discharge patient. Counseling: I had a detailed discussion with the patient and/or guardian regarding: the historical points, exam findings, and any diagnostic results supporting the discharge/admit diagnosis, the need for outpatient follow up, to return to the emergency department if symptoms worsen or persist or if there are any questions or concerns that arise at home. ED course: Discussed physical exam findings with patient. Patient to follow-up with primary care physician in 2 to 3 days. Patient understands and agrees with plan. All questions were answered. Return precautions discussed include worsening symptoms, or any other concerns. On reevaluation patient is improved, alert and oriented x4, no apparent distress, nontoxic, ambulatory in emergency department.. Administered Medications: No medications were administered Disposition Summary: 09/30/21 18:49 Discharge Ordered Location: Home ms3 Condition: Stable ms3 Diagnosis - Impacted cerumen, left ear ms3 - Otalgia, left ear ms3 Followup: ms3 - With: Hugh Trejo DO - When: 2 - 3 days - Reason: Re-evaluation by your physician Discharge Instructions: - Discharge Summary Sheet ms3 - Earwax Buildup, Adult ms3 Forms: - Medication Reconciliation Form ms3 - Thank You Letter ms3 - Antibiotic Education ms3 - Prescription Opioid Use ms3 Signatures: Bernard Sanchez DO DO ms3 Ayala Sow, RN RN ld1
--- NOTE | 2021-09-30 20:02 | ER ---
Nurse's Notes [facility] Name: Marcel Hein Age: 81 yrs Sex: Male : 1940 Arrival Date: 09/30/2021 Time: 18:14 Bed Waiting Private MD: Diagnosis: Impacted cerumen, left ear;Otalgia, left ear Presentation: 09/30 19:57 Method Of Arrival: Ambulatory ld1 19:59 Chief complaint: Patient states: Left ear pain. Coronavirus screen: At this time, the ld1 client does not indicate any symptoms associated with coronavirus-19. Ebola Screen: No symptoms or risks identified at this time. Initial Sepsis Screen: Does the patient meet any 2 criteria? No. Patient's initial sepsis screen is negative. Does the patient have a suspected source of infection? No. Patient's initial sepsis screen is negative. Risk Assessment: Do you want to hurt yourself or someone else? Patient reports no desire to harm self or others. Onset of symptoms was September 30, 2021. 19:59 Acuity: CHAD 4 ld1 Triage Assessment: 20:00 General: Appears in no apparent distress. comfortable, Behavior is calm, cooperative, ld1 appropriate for age. Pain: Complains of pain in left ear. EENT: Reports pain in left ear. Neuro: Level of Consciousness is awake, alert, obeys commands, Oriented to person, place, time, situation. Cardiovascular: Capillary refill < 3 seconds Patient's skin is warm and dry. Respiratory: Airway is patent Respiratory effort is even, unlabored. GI: Abdomen is flat, non-distended. : No signs and/or symptoms were reported regarding the genitourinary system. Derm: No signs and/or symptoms reported regarding the dermatologic system. Musculoskeletal: No signs and/or symptoms reported regarding the musculoskeletal system. Historical: - Allergies: 20:00 No Known Allergies; ld1 - PMHx: 20:00 CAD; GERD; High Cholesterol; Hypertension; ld1 - PSHx: 20:00 None; ld1 - Immunization history:: Adult Immunizations up to date, Client reports receiving the 2nd dose of the Covid vaccine. - Social history:: Smoking status: Patient denies any tobacco usage or history of. Patient/guardian denies using alcohol. Assessment: 19:15 Reassessment: ERP in triage assessing pt. ld1 Vital Signs: 19:59 BP 139 / 86; Pulse 81; Resp 18; Temp 97.6(TE); Pulse Ox 100% on R/A; Weight 78.02 kg; ld1 Height 5 ft. 8 in. (172.72 cm); Pain 3/10; 19:59 Body Mass Index 26.15 (78.02 kg, 172.72 cm) ld1 ED Course: 18:14 Patient arrived in ED. rg4 18:24 Bernard Sanchez DO is Attending Physician. ms3 18:48 Hugh Trejo DO is Referral Physician. ms3 20:00 Triage completed. ld1 20:00 Arm band placed on right wrist. ld1 Administered Medications: No medications were administered Outcome: 18:49 Discharge ordered by . ms3 20:01 Medical screen evaluation completed per provider. ld1 20:01 Condition: stable 20:01 Following a medical screening exam, the patient was provided information regarding alternative care sites and resources available per registration personnel. 20:01 Patient left the ED. ld1 Signatures: Noemy Soto rg4 Bernard Sanchez DO DO ms3 Ayala Sow, RN RN ld1
[2021-09-30 20:36] VITALS: BP 139/86; TEMP 97.6; O2SAT 100
== END 2021-09-30 20:01 | disposition home or self-care (01) ==
LOC: ER 18:11
DX: H92.02 Otalgia, left ear (principal); H61.22 Impacted cerumen, left ear; I10 Essential (primary) hypertension

== ENCOUNTER 2022-03-28 23:40 | Emergency (ER) | payer OTHER ==
--- OUTSIDE RECORDS SUMMARY | 2022-03-28 23:46 | XMS REPORT | Continuity of Care Document ---
:1940 Author Organization [facility] t Address [facility] [place] [address] Care Team Providers Name Role Phone Sharpless Primary Care Physician Magaly Judd Attending Clinician Unavailable PATRIC ALTMAN Attending Clinician Unavailable PATRIC ALTMAN Admitting Clinician Unavailable Payers Payer Name Policy Type Policy Number Effective Date Expiration Date [id number] 2019 Common Sp suzanne ing Medicare 00:00:[address] [facility] Replace [facility] Problems Condition Condition Condition Status Onset Resolution Last Treating Co mments Source Name Details Category Date Date Treatment Clinician Date Nonrheumat Nonrheumat Disease Active C HI St ic aortic ic aortic 9-15 [place]lette s (valve) (valve) 00:00: Medical stenosis stenosis 00 [place] [id number] Stage 3a Problem Comm on chronic Spirit kidney - [facility] disease (CKD) [facility] 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 - [facility] stage 3B disease (disorder) [facility] Disorder Circulatio Problem Com mon of n problem Spirit cardiovasc - [facility] ular [facility] system [facility] [id number] History of Problem Co mmon coronary Spirit artery - [facility] stent St placement [facility] [id number] Encounter Problem Com mon for Spirit wellness - [facility]I examinatio [facility] n in adult [facility] [id number] Chronic Problem Common gastritis Spirit without - [facility] bleeding, [facility] Center type High High Problem Common cholestero cholestero Sp suzanne l l - [facility] [id number] +5th digit Problem Co mmon eff Spirit 12/26/19*CK - CHI D (chronic St kidney [facility] disease) Medical stage 3, Center GFR 30-59 ml/min [id number] 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 Spirit pain - [facility] S/P AVR S/P AVR Disease Active [facility] Hypertensi Hypertensi Disease Active C HI [facility] on [facility] Coronary Coronary Disease Active [facility] S t artery artery [facility] disease disease Medical Center CHF CHF Disease Active [facility] (congestiv (congestiv Colette kes e heart e heart Medical failure) failure) Center Stenosis Stenosis Disease Active [facility] S t of of [facility] prosthetic prosthetic N[place] dicla aortic aortic Center valve valve COPD COPD Disease Active [facility] (chronic (chronic [facility] obstructiv obstructiv Me dical e e Center pulmonary pulmonary disease) disease) Allergies, Adverse Reactions, Alerts This patient has no known allergies or adverse reactions. Family History Family Member Diagnosis Comments Start Date Stop Date Source Natural brother Heart disease [facility] Social History Social Habit Start Date Stop Date Quantity Comments Source History of Tobacco [facility] - Use [facility] Alcohol intake 2016-12-10 2016-12-10 Current [facility] es 00:00:00 00:00:00 non-drinker of Medical Ce nter alcohol (finding) Cigarettes smoked 2016-12-07 2016-12-07 [facility] current (pack per 00:00:00 00:00:00 Medical Center day) - Reported Tobacco use and 2016-12-07 2016-12-07 Never used [facility] exposure 00:00:00 00:00:00 [facility] Center Sex Assigned At [birth year] [facility] 00:00:00 00:00:00 [facility] Center Smoking Status Start Date Stop Date Source Never Smoker [facility] - [facility] Former Smoker 2021-04-09 00:00:00 2021-04-09 [facility]:00:00 [facility] Ordered Filled Start Stop Current Ordering Indication Dosage Frequency Signature Comments Components Source Medication Medication Date Date Medication? Clinician (SIG) Name Name Amoxicillin Amoxicillin 2021- No 1{table BID Amoxicilli -Pot -Pot 04-09 t} n-Pot Clavulanate Clavulanate 00:00: 00:00 Clavulanat 875-125 MG 875-125 MG 00 :00 e 875-125 MG Amoxicillin Amoxicillin 2021- No 1{table BID Amoxicilli -Pot -Pot 04-09 t} n-Pot Clavulanate Clavulanate 00:00: 00:00 Clavulanat 875-125 MG 875-125 MG 00 :00 e 875-125 MG Ferrous Ferrous No 1{table QD Ferrous Sulfate 325 Sulfate 325 3-10 t} Sulfate (65 Fe) mg (65 Fe) mg 00:00: 325 (65 00 Fe) mg Ferrous Ferrous No 1{table QD Ferrous Sulfate 325 Sulfate 325 3-10 t} Sulfate (65 Fe) mg (65 Fe) mg 00:00: 325 (65 00 Fe) mg Ferrous Ferrous No 1{table QD Ferrous Sulfate 325 Sulfate 325 3-10 t} Sulfate (65 Fe) mg (65 Fe) mg 00:00: 325 (65 00 Fe) mg Ferrous Ferrous No 1{table QD Ferrous Sulfate 325 Sulfate 325 3-10 t} Sulfate (65 Fe) mg (65 Fe) mg 00:00: 325 (65 00 Fe) mg Ferrous Ferrous 2020- No 1{table QD Ferrous Sulfate 325 Sulfate 325 3-10 t} Sulfate (65 Fe) mg (65 Fe) mg 00:00: 325 (65 00 Fe) mg Ferrous Ferrous 2020-0 No 1{table QD Ferrous Sulfate 325 Sulfate 325 3-10 t} Sulfate (65 Fe) mg (65 Fe) mg 00:00: 325 (65 00 Fe) mg Ferrous Ferrous 2020-0 No 1{table QD Ferrous Sulfate 325 Sulfate 325 3-10 t} Sulfate (65 Fe) mg (65 Fe) mg 00:00: 325 (65 00 Fe) mg Ferrous Ferrous No 1{table QD Ferrous Sulfate 325 Sulfate 325 3-10 t} Sulfate (65 Fe) mg (65 Fe) mg 00:00: 325 (65 00 Fe) mg Ferrous Ferrous 2020-0 No 1{table QD Ferrous Sulfate 325 Sulfate 325 3-10 t} Sulfate (65 Fe) mg (65 Fe) mg 00:00: 325 (65 00 Fe) mg Ferrous Ferrous 2020-0 No 1{table QD Ferrous Sulfate 325 Sulfate 325 3-10 t} Sulfate (65 Fe) mg (65 Fe) mg 00:00: 325 (65 00 Fe) mg Gabapentin Gabapentin 2020-0 No 1{capsu Gabapentin 100 MG 100 MG 2- le} 100 MG 00:00: 00 Albuterol Albuterol 2020-0 No TID Albuterol 90 MCG/ACT 90 MCG/ACT 2-02 90 MCG/ACT 00:00: 00 Gabapentin Gabapentin 2020-0 No 1{capsu Gabapentin 100 MG 100 MG 2- le} 100 MG 00:00: 00 Albuterol Albuterol 2020-0 No TID Albuterol 90 MCG/ACT 90 MCG/ACT 2-02 90 MCG/ACT 00:00: 00 Gabapentin Gabapentin 2020-0 No 1{capsu Gabapentin 100 MG 100 MG 2- le} 100 MG 00:00: 00 Albuterol Albuterol 2020-0 No TID Albuterol 90 MCG/ACT 90 MCG/ACT 2-02 90 MCG/ACT 00:00: 00 Gabapentin Gabapentin 2020-0 No 1{capsu Gabapentin 100 MG 100 MG 2- le} 100 MG 00:00: 00 Albuterol Albuterol 2020-0 No TID Albuterol 90 MCG/ACT 90 MCG/ACT 2-02 90 MCG/ACT 00:00: 00 Albuterol Albuterol 2020-0 No TID Albuterol 90 MCG/ACT 90 MCG/ACT 2-02 90 MCG/ACT 00:00: 00 Gabapentin Gabapentin 2021-0 No 1{capsu Gabapentin 100 MG 100 MG 2- le} 100 MG 00:00: 00 Albuterol Albuterol 2020-0 No TID Albuterol 90 MCG/ACT 90 MCG/ACT 2-02 90 MCG/ACT 00:00: 00 Gabapentin Gabapentin 2021-0 No 1{capsu Gabapentin 100 MG 100 MG 2- le} 100 MG 00:00: 00 Albuterol Albuterol 2020-0 No TID Albuterol 90 MCG/ACT 90 MCG/ACT 2-02 90 MCG/ACT 00:00: 00 Gabapentin Gabapentin 2020-0 No 1{capsu Gabapentin 100 MG 100 MG 2- le} 100 MG 00:00: 00 Albuterol Albuterol 0 No TID Albuterol 90 MCG/ACT 90 MCG/ACT 2-02 90 MCG/ACT 00:00: 00 Gabapentin Gabapentin 2020-0 No 1{capsu Gabapentin 100 MG 100 MG 2- le} 100 MG 00:00: 00 Gabapentin Gabapentin 2020-0 No 1{capsu Gabapentin 100 MG 100 MG 2-02 le} 100 MG 00:00: 00 Albuterol Albuterol 0 No TID Albuterol 90 MCG/ACT 90 MCG/ACT 2-02 90 MCG/ACT 00:00: 00 Gabapentin Gabapentin 2020-0 No 1{capsu Gabapentin 100 MG 100 MG 2- le} 100 MG 00:00: 00 Albuterol Albuterol 0 No TID Albuterol 90 MCG/ACT 90 MCG/ACT 2-02 90 MCG/ACT 00:00: 00 omeprazole Yes 40mg QD Take [address] (PRILOSEC) 9-15 by mouth [facility] 40 MG 17:07: daily. Medical capsule 48 Center losartan Yes 100mg QD Take [address] (COZAAR) 9-15 mg by [facility] 100 MG 17:07: mouth Medical tablet 48 daily. Center aspirin 81 Yes 81mg QD Take [address] MG EC 9-15 by mouth [facility] tablet 17:07: daily. Medical 48 [place] pravastatin Yes 40mg QD Take [address] (PRAVACHOL) 9-15 by mouth [facility] 40 MG 17:07: daily. Medical tablet 48 Center Clopidogrel Clopidogrel Yes Na Judd 1 tablet Common Bisulfate Bisulfate Spiri t - [facility] Aspir-Low Aspir-Low Yes Na Judd 1 tablet Common [facility] Pravastatin Pravastatin Yes Na Judd 1 tablet Common Sodium Sodium Spirit [facility] Omeprazole Omeprazole Yes Na Judd 1 capsule Common 30 minutes Spirit before - [facility] morning [facility] Losartan Losartan Yes Na Judd 1 tablet Common Potassium-H Potassium-H S pirit CTZ CTZ - [facility] Amlodipine Amlodipine Yes Na Judd 1 tablet Common Besylate Besylate Spirit [facility] Metoprolol Metoprolol Yes Na Judd 1 tablet Common Succinate Succinate Spiri t ER ER - [facility] Metoprolol Metoprolol No Metoprolol Succinate Succinate Succinate ER 50 MG ER 50 MG ER 50 MG amLODIPine amLODIPine No 1{table QD amLODIPine Besylate 10 Besylate 10 t} Besylate MG MG 10 MG Aspir-Low Aspir-Low No 1{table QD Aspir-Low 81 MG 81 MG t} 81 MG Losartan Losartan No 1{table QD Losartan Potassium-H Potassium-H t} Potassium- CTZ 100-25 CTZ 100-25 HCTZ MG MG 100-25 MG Clopidogrel Clopidogrel No 1{table QD Clopidogre Bisulfate Bisulfate t} l 75 MG 75 MG Bisulfate 75 MG Metoprolol Metoprolol No 1{table QD Metoprolol Succinate Succinate t} Succinate ER 100 MG ER 100 MG ER 100 MG Pravastatin Pravastatin No 1{table QD Pravastati Sodium 40 Sodium 40 t} n Sodium MG MG 40 MG Pantoprazol Pantoprazol No QD Pantoprazo e Sodium 40 e Sodium 40 le Sodium MG MG 40 MG Metoprolol Metoprolol No Metoprolol Succinate Succinate Succinate ER 100 MG ER 100 MG ER 100 MG Metoprolol Metoprolol No Metoprolol Succinate Succinate Succinate ER 50 MG ER 50 MG ER 50 MG Pravastatin Pravastatin No 1{table QD Pravastati Sodium 40 Sodium 40 t} n Sodium MG MG 40 MG Losartan Losartan No 1{table QD Losartan Potassium-H Potassium-H t} Potassium- CTZ 100-25 CTZ 100-25 HCTZ MG MG 100-25 MG Clopidogrel Clopidogrel No 1{table QD Clopidogre Bisulfate Bisulfate t} l 75 MG 75 MG Bisulfate 75 MG Aspir-Low Aspir-Low No 1{table QD Aspir-Low 81 MG 81 MG t} 81 MG amLODIPine amLODIPine No 1{table QD amLODIPine Besylate 10 Besylate 10 t} Besylate MG MG 10 MG Metoprolol Metoprolol No 1{table QD Metoprolol Succinate Succinate t} Succinate ER 100 MG ER 100 MG ER 100 MG Metoprolol Metoprolol No Metoprolol Succinate Succinate Succinate ER 100 MG ER 100 MG ER 100 MG Metoprolol Metoprolol No Metoprolol Succinate Succinate Succinate ER 50 MG ER 50 MG ER 50 MG Losartan Losartan No 1{table QD Losartan Potassium-H Potassium-H t} Potassium- CTZ 100-25 CTZ 100-25 HCTZ MG MG 100-25 MG Pravastatin Pravastatin No 1{table QD Pravastati Sodium 40 Sodium 40 t} n Sodium MG MG 40 MG Clopidogrel Clopidogrel No 1{table QD Clopidogre Bisulfate Bisulfate t} l 75 MG 75 MG Bisulfate 75 MG Aspir-Low Aspir-Low No 1{table QD Aspir-Low 81 MG 81 MG t} 81 MG Metoprolol Metoprolol No 1{table QD Metoprolol Succinate Succinate t} Succinate ER 100 MG ER 100 MG ER 100 MG Metoprolol Metoprolol No Metoprolol Succinate Succinate Succinate ER 100 MG ER 100 MG ER 100 MG amLODIPine amLODIPine No 1{table QD amLODIPine Besylate 10 Besylate 10 t} Besylate MG MG 10 MG Metoprolol Metoprolol No Metoprolol Succinate Succinate Succinate ER 50 MG ER 50 MG ER 50 MG Losartan Losartan No 1{table QD Losartan Potassium-H Potassium-H t} Potassium- CTZ 100-25 CTZ 100-25 HCTZ MG MG 100-25 MG Pravastatin Pravastatin No 1{table QD Pravastati Sodium 40 Sodium 40 t} n Sodium MG MG 40 MG Clopidogrel Clopidogrel No 1{table QD Clopidogre Bisulfate Bisulfate t} l 75 MG 75 MG Bisulfate 75 MG Aspir-Low Aspir-Low No 1{table QD Aspir-Low 81 MG 81 MG t} 81 MG Metoprolol Metoprolol No 1{table QD Metoprolol Succinate Succinate t} Succinate ER 100 MG ER 100 MG ER 100 MG Metoprolol Metoprolol No Metoprolol Succinate Succinate Succinate ER 100 MG ER 100 MG ER 100 MG amLODIPine amLODIPine No 1{table QD amLODIPine Besylate 10 Besylate 10 t} Besylate MG MG 10 MG Losartan Losartan No 1{table QD Losartan Potassium-H Potassium-H t} Potassium- CTZ 100-25 CTZ 100-25 HCTZ MG MG 100-25 MG Pravastatin Pravastatin No 1{table QD Pravastati Sodium 40 Sodium 40 t} n Sodium MG MG 40 MG Metoprolol Metoprolol No Metoprolol Succinate Succinate Succinate ER 50 MG ER 50 MG ER 50 MG Metoprolol Metoprolol No Metoprolol Succinate Succinate Succinate ER 100 MG ER 100 MG ER 100 MG Aspir-Low Aspir-Low No 1{table QD Aspir-Low 81 MG 81 MG t} 81 MG Omeprazole Omeprazole No QD Omeprazole 40 MG 40 MG 40 MG Metoprolol Metoprolol No 1{table QD Metoprolol Succinate Succinate t} Succinate ER 100 MG ER 100 MG ER 100 MG Clopidogrel Clopidogrel No 1{table QD Clopidogre Bisulfate Bisulfate t} l 75 MG 75 MG Bisulfate 75 MG amLODIPine amLODIPine No 1{table QD amLODIPine Besylate 10 Besylate 10 t} Besylate MG MG 10 MG Metoprolol Metoprolol No 1{table QD Metoprolol Succinate Succinate t} Succinate ER 100 MG ER 100 MG ER 100 MG Clopidogrel Clopidogrel No 1{table QD Clopidogre Bisulfate Bisulfate t} l 75 MG 75 MG Bisulfate 75 MG Aspir-Low Aspir-Low No 1{table QD Aspir-Low 81 MG 81 MG t} 81 MG amLODIPine amLODIPine No 1{table QD amLODIPine Besylate 10 Besylate 10 t} Besylate MG MG 10 MG Omeprazole Omeprazole No QD Omeprazole 40 MG 40 MG 40 MG Metoprolol Metoprolol No Metoprolol Succinate Succinate Succinate ER 50 MG ER 50 MG ER 50 MG Metoprolol Metoprolol No Metoprolol Succinate Succinate Succinate ER 100 MG ER 100 MG ER 100 MG Losartan Losartan No 1{table QD Losartan Potassium-H Potassium-H t} Potassium- CTZ 100-25 CTZ 100-25 HCTZ MG MG 100-25 MG Pravastatin Pravastatin No 1{table QD Pravastati Sodium 40 Sodium 40 t} n Sodium MG MG 40 MG Metoprolol Metoprolol No 1{table QD Metoprolol Succinate Succinate t} Succinate ER 100 MG ER 100 MG ER 100 MG Clopidogrel Clopidogrel No 1{table QD Clopidogre Bisulfate Bisulfate t} l 75 MG 75 MG Bisulfate 75 MG Aspir-Low Aspir-Low No 1{table QD Aspir-Low 81 MG 81 MG t} 81 MG amLODIPine amLODIPine No 1{table QD amLODIPine Besylate 10 Besylate 10 t} Besylate MG MG 10 MG Omeprazole Omeprazole No QD Omeprazole 40 MG 40 MG 40 MG Metoprolol Metoprolol No Metoprolol Succinate Succinate Succinate ER 50 MG ER 50 MG ER 50 MG Metoprolol Metoprolol No Metoprolol Succinate Succinate Succinate ER 100 MG ER 100 MG ER 100 MG Losartan Losartan No 1{table QD Losartan Potassium-H Potassium-H t} Potassium- CTZ 100-25 CTZ 100-25 HCTZ MG MG 100-25 MG Pravastatin Pravastatin No 1{table QD Pravastati Sodium 40 Sodium 40 t} n Sodium MG MG 40 MG Metoprolol Metoprolol No 1{table QD Metoprolol Succinate Succinate t} Succinate ER 100 MG ER 100 MG ER 100 MG Clopidogrel Clopidogrel No 1{table QD Clopidogre Bisulfate Bisulfate t} l 75 MG 75 MG Bisulfate 75 MG Aspir-Low Aspir-Low No 1{table QD Aspir-Low 81 MG 81 MG t} 81 MG amLODIPine amLODIPine No 1{table QD amLODIPine Besylate 10 Besylate 10 t} Besylate MG MG 10 MG Omeprazole Omeprazole No QD Omeprazole 40 MG 40 MG 40 MG Metoprolol Metoprolol No Metoprolol Succinate Succinate Succinate ER 50 MG ER 50 MG ER 50 MG Metoprolol Metoprolol No Metoprolol Succinate Succinate Succinate ER 100 MG ER 100 MG ER 100 MG Losartan Losartan No 1{table QD Losartan Potassium-H Potassium-H t} Potassium- CTZ 100-25 CTZ 100-25 HCTZ MG MG 100-25 MG Pravastatin Pravastatin No 1{table QD Pravastati Sodium 40 Sodium 40 t} n Sodium MG MG 40 MG Metoprolol Metoprolol No Metoprolol Succinate Succinate Succinate ER 50 MG ER 50 MG ER 50 MG Pravastatin Pravastatin No 1{table QD Pravastati Sodium 40 Sodium 40 t} n Sodium MG MG 40 MG amLODIPine amLODIPine No 1{table QD amLODIPine Besylate 10 Besylate 10 t} Besylate MG MG 10 MG Metoprolol Metoprolol No 1{table QD Metoprolol Succinate Succinate t} Succinate ER 100 MG ER 100 MG ER 100 MG Losartan Losartan No 1{table QD Losartan Potassium-H Potassium-H t} Potassium- CTZ 100-25 CTZ 100-25 HCTZ MG MG 100-25 MG Metoprolol Metoprolol No Metoprolol Succinate Succinate Succinate ER 100 MG ER 100 MG ER 100 MG Omeprazole Omeprazole No QD Omeprazole 40 MG 40 MG 40 MG Aspir-Low Aspir-Low No 1{table QD Aspir-Low 81 MG 81 MG t} 81 MG Clopidogrel Clopidogrel No 1{table QD Clopidogre Bisulfate Bisulfate t} l 75 MG 75 MG Bisulfate 75 MG Metoprolol Metoprolol No Metoprolol Succinate Succinate Succinate ER 50 MG ER 50 MG ER 50 MG Pravastatin Pravastatin No 1{table QD Pravastati Sodium 40 Sodium 40 t} n Sodium MG MG 40 MG amLODIPine amLODIPine No 1{table QD amLODIPine Besylate 10 Besylate 10 t} Besylate MG MG 10 MG Metoprolol Metoprolol No 1{table QD Metoprolol Succinate Succinate t} Succinate ER 100 MG ER 100 MG ER 100 MG Losartan Losartan No 1{table QD Losartan Potassium-H Potassium-H t} Potassium- CTZ 100-25 CTZ 100-25 HCTZ MG MG 100-25 MG Metoprolol Metoprolol No Metoprolol Succinate Succinate Succinate ER 100 MG ER 100 MG ER 100 MG Omeprazole Omeprazole No QD Omeprazole 40 MG 40 MG 40 MG Aspir-Low Aspir-Low No 1{table QD Aspir-Low 81 MG 81 MG t} 81 MG Clopidogrel Clopidogrel No 1{table QD Clopidogre Bisulfate Bisulfate t} l 75 MG 75 MG Bisulfate 75 MG Immunizations Ordered Immunization Filled Immunization Date Status Commen ts Source Name Name FLUZONE HIGH DOSE FLUZONE HIGH DOSE 2021-12-20 Completed [facility] OVER 65 OVER 65 09:44:00 - [facility] FLUZONE HIGH DOSE FLUZONE HIGH DOSE 2021-12-20 Completed [facility] OVER 65 OVER 65 09:44:00 - [facility] Prevnar 20 (PCV20) Prevnar 20 (PCV20) 2021-09-17 Completed [facility] 09:14:00 - [facility] Prevnar 20 (PCV20) Prevnar 20 (PCV20) 2021-09-17 Completed [facility] 09:14:00 - [facility] Prevnar 20 (PCV20) Prevnar 20 (PCV20) 2021-09-17 Completed [facility] 09:14:00 - [facility] Prevnar 20 (PCV20) Prevnar 20 (PCV20) 2021-09-17 Completed [facility] 09:14:00 - [facility] Prevnar 20 (PCV20) Prevnar 20 (PCV20) 2021-09-17 Completed [facility] 09:14:00 - [facility] FluAD FluAD 2021-01-23 Completed [facility] 08:25:00 [facility] FluAD FluAD 2021-01-23 Completed [facility] 08:25:00 - [facility] FluAD FluAD 2021-01-23 Completed [facility] 08:25:00 - [facility] FluAD FluAD 2021-01-23 Completed [facility] 08:25:00 - [facility] FluAD FluAD 2021-01-23 Completed [facility] 08:25:00 - [facility] FluAD FluAD 2021-01-23 Completed [facility] 08:25:00 - [facility] FluAD FluAD 2021-01-23 Completed [facility] 08:25:00 - [facility] FluAD FluAD 2021-01-23 Completed [facility] 08:25:00 - [facility] FluAD FluAD 2021-01-23 Completed [facility] 08:25:00 - [facility] Vital Signs Vital Name Observation Time Observation Value Comments Source blood pressure 2021-12-20 08:40:00 136 mm[Hg] Common [facility] - systolic [facility] blood pressure 2021-12-20 08:40:00 74 mm[Hg] Common [facility] - diastolic [facility] height 2021-12-20 08:40:00 65.00 [in_i] [facility] weight 2021-12-20 08:40:00 150.6 [lb_av] [facility] temperature 2021-12-20 08:40:00 98.0 [degF] [facility] bmi 2021-12-20 08:40:00 25.06 kg/m2 [facility] oximetry 2021-12-20 08:40:00 96 % [facility] respiratory rate 2021-12-20 08:40:00 16 /min Comm on [facility] height 2021-09-17 08:00:00 65.00 [in_i] [facility] weight 2021-09-17 08:00:00 148.4 [lb_av] [facility] temperature 2021-09-17 08:00:00 97.4 [degF] Common [facility] bmi 2021-09-17 08:00:00 24.69 kg/m2 Common [facility] oximetry 2021-09-17 08:00:00 95 % Common [facility] respiratory rate 2021-09-17 08:00:00 16 /min Comm on [facility] blood pressure 2021-09-17 08:00:00 134 mm[Hg] Common [facility] - systolic [facility] blood pressure 2021-09-17 08:00:00 73 mm[Hg] Common [facility] - diastolic [facility] height 2021-09-17 08:20:00 65.00 [in_i] [facility] weight 2021-09-17 08:20:00 148.4 [lb_av] [facility] temperature 2021-09-17 08:20:00 97.4 [degF] Common [facility] bmi 2021-09-17 08:20:00 24.69 kg/m2 [facility] oximetry 2021-09-17 08:20:00 95 % [facility] respiratory rate 2021-09-17 08:20:00 16 /min Comm on [facility] blood pressure 2021-09-17 08:20:00 134 mm[Hg] Common [facility] - systolic [facility] blood pressure 2021-09-17 08:20:00 73 mm[Hg] Common [facility] - diastolic [facility] height 2021-06-04 08:00:00 65.00 [in_i] Common [facility] weight 2021-06-04 08:00:00 150.8 [lb_av] [facility] temperature 2021-06-04 08:00:00 97.8 [degF] Common [facility] bmi 2021-06-04 08:00:00 25.09 kg/m2 Common [facility] oximetry 2021-06-04 08:00:00 98 % Common [facility] respiratory rate 2021-06-04 08:00:00 16 /min Comm on [facility] blood pressure 2021-06-04 08:00:00 138 mm[Hg] Common [facility] - systolic [facility] blood pressure 2021-06-04 08:00:00 57 mm[Hg] Common [facility] - diastolic [facility] height 2021-04-09 15:20:00 65.00 [in_i] Common [facility] weight 2021-04-09 15:20:00 147.6 [lb_av] [facility] bmi 2021-04-09 15:20:00 24.56 kg/m2 [facility] height 2021-03-05 08:40:00 65.00 [in_i] Common [facility] weight 2021-03-05 08:40:00 147.6 [lb_av] [facility] temperature 2021-03-05 08:40:00 97.5 [degF] [facility] bmi 2021-03-05 08:40:00 24.56 kg/m2 [facility] oximetry 2021-03-05 08:40:00 97 % [facility] respiratory rate 2021-03-05 08:40:00 16 /min Comm on [facility] blood pressure 2021-03-05 08:40:00 160 mm[Hg] Common [facility] - systolic [facility] blood pressure 2021-03-05 08:40:00 50 mm[Hg] Common [facility] diastolic [facility] Procedures This patient has no known procedures. Encounters Start End Encounter Admission Attending Care Care Encounter Source Date/Time Date/Time Type Type Clinicians Facility Department ID 2022-03-23 [facility] [id number] 2 Common 15:05:01 [id number] [facility] 2021-12-17 Outpatient Judd, Na [facility]LMLC [facility] [id number] 2 Common 07:22:00 [facility] 2021-09-15 Outpatient Judd, Na STLMLC STLMLC [id number] 2 Common 10:28:02 [facility] 2021-06-03 Outpatient Judd, Na STLMLC STLMLC [id number] 2 Common 10:59:01 [facility] 2021-04-21 Outpatient Judd, Na STLMLC STLMLC [id number] 2 Common 14:34:56 [facility] 2021-04-21 Outpatient Judd, Na STLMLC STLMLC [id number] 2 Common 14:22:03 [facility] 2021-04-21 Outpatient Judd, Na STLMLC STLMLC [id number] 2 Common 13:49:20 [id number] [facility] 2021-04-21 Outpatient Judd, Na STLMLC STLMLC [id number] 2 Common 13:47:08 [id number] [facility] 2021-04-21 Outpatient Judd, Na STLMLC STLMLC [id number] 2 Common 13:46:24 [id number] [facility] 2021-04-21 Outpatient Judd, Na STLMLC STLMLC [id number] 2 Common 13:11:38 [id number] [facility] 2021-04-21 Outpatient Judd, Na STLMLC STLMLC [id number] 2 Common 13:04:55 [id number] [facility] 2021-04-21 Outpatient Judd, Na STLMLC STLMLC [id number] 2 Common 12:40:43 [id number] [facility] 2021-04-21 Outpatient Judd, Na STLMLC STLMLC [id number] 2 Common 12:38:00 [id number] [facility] 2021-04-21 Outpatient Judd, Na STLMLC STLMLC [id number] 2 Common 12:37:18 [id number] [facility] 2021-04-21 Outpatient Judd, Na STLMLC STLMLC [id number] 2 Common 12:36:39 [id number] [facility] 2021-04-21 Outpatient Judd, Na STLMLC STLMLC [id number] 2 Common 12:31:15 [id number] [facility] 2021-04-21 Outpatient Judd, Na STLMLC STLMLC [id number] 2 Common 12:27:41 [id number] [facility] 2021-04-21 Outpatient Judd, Na STLMLC STLMLC [id number] 2 Common 12:03:44 [id number] [facility] 2021-04-21 Outpatient Judd, Na STLMLC STLMLC [id number] 2 Common 12:03:02 [id number] [facility] 2021-04-21 Outpatient Judd, Na STLMLC STLMLC [id number] 2 Common 11:36:29 [id number] [facility] 2021-04-21 Outpatient Judd, Na STLMLC STLMLC [id number] 2 Common 11:35:53 [id number] [facility] 2021-04-21 Outpatient Judd, Na STLMLC STLMLC [id number] 2 Common 11:29:36 [id number] [facility] 2021-04-21 Outpatient Judd, Na STLMLC STLMLC [id number] 2 Common 11:16:56 [id number] [facility] 2021-12-20 2021-12-20 OFFICE STLMLC STLMLC [id number] Co mmon 00:00:00 00:00:00 VISIT [facility] ESTAB PT - CHI LEVEL 4 [facility] 2021-09-17 2021-09-17 (TEL) STLMLC STLMLC [id number] Co mmon 00:00:00 00:00:00 [facility] 2021-09-17 2021-09-17 SUB ANNUAL STLMLC STLMLC [id number] Common 00:00:00 00:00:00 [facility] WELLNESS - CHI VISIT [facility] 2021-09-17 2021-09-17 OFFICE STLMLC STLMLC [id number] Co mmon 00:00:00 00:00:00 VISIT EST Spir it PT LEVEL 3 - [facility] 2021-06-04 2021-06-04 OFFICE STLMLC STLMLC [id number] Co mmon 00:00:00 00:00:00 VISIT [facility] ESTAB PT - CHI LEVEL 4 [facility] 2021-04-09 2021-04-09 OL DIG E/M STLMLC STLMLC [id number] Common 00:00:00 00:00:00 SVC -20 Spir it MIN - [facility] 2021-04-07 2021-04-07 (TEL) STLMLC STLMLC [id number] Co mmon 00:00:00 00:00:00 [facility] 2021-03-05 2021-03-05 OFFICE STLMLC STLMLC [id number] Co mmon 00:00:00 00:00:00 VISIT [facility] PT - CHI LEVEL 4 [facility] 2021-02-23 2021-02-23 (TEL) STLMLC STLMLC [id number] Co mmon 00:00:00 00:00:00 [facility] 2020-12-03 2020-12-03 Outpatient STLMLC STLMLC [id number] Common 00:00:00 00:00:00 [facility] 2020-09-01 2020-09-01 Outpatient STLMLC STLMLC [id number] Common 00:00:00 00:00:00 [facility] 2020-08-26 2020-08-26 Outpatient STLMLC STLMLC [id number] Common 00:00:00 00:00:00 [facility] 2020-06-03 2020-06-03 Outpatient STLMLC STLMLC [id number] Common 00:00:00 00:00:00 [facility] 2020-06-02 2020-06-02 Outpatient STLMLC STLMLC [id number] Common 00:00:00 00:00:00 [facility] 2020-05-07 2020-05-07 Outpatient STLMLC STLMLC [id number] Common 00:00:00 00:00:00 [facility] 2020-05-06 2020-05-06 Outpatient STLMLC STLMLC [id number] Common 00:00:00 00:00:00 [facility] 2020-04-28 2020-04-28 Outpatient STLMLC STLMLC [id number] Common 00:00:00 00:00:00 [facility] 2020-04-28 2020-04-28 Outpatient STLMLC STLMLC [id number] Common 00:00:00 00:00:00 [facility] 2020-04-27 2020-04-27 Outpatient STLMLC STLMLC [id number] Common 00:00:00 00:00:00 [facility] 2020-02-04 2020-02-04 Outpatient STLMLC STLMLC [id number] Common 00:00:00 00:00:00 [facility] 2020-02-01 2020-02-01 Outpatient STLMLC STLMLC [id number] Common 00:00:00 00:00:00 [facility] 2020-01-29 2020-01-29 Outpatient STLMLC STLMLC [id number] Common 00:00:00 00:00:00 [facility] 2019-11-05 2019-11-05 [facility] [id number] Common 09:00:00 09:00:[address] [place] [address] [facility] 2019-09-30 2019-09-30 [facility] [id number] Common 15:20:00 15:20:[address] [place] [address] [facility] 2019-06-28 2019-06-28 [facility] [id number] Common 15:20:00 15:20:[address] [place] [address] [facility] Results Test Description Test Time Test Comments Results Result Comments Source BASIC METABOLIC PANEL 2016-12-09 06:18:00 Test Item Value Reference Range Interpretation Comme nts SODIUM (BEAKER) (test code 138 meq/L 136-145 = 381) POTASSIUM (BEAKER) (test 4.2 meq/L 3.5-5.1 code = 379) CHLORIDE (BEAKER) (test 109 meq/L 98-107 H code = 382) CO2 (BEAKER) (test code = 23 meq/L 22-29 355) BLOOD UREA NITROGEN 16 mg/dL 7-21 (BEAKER) (test code = 354) CREATININE (BEAKER) (test 1.15 mg/dL 0.57-1.25 code = 358) GLUCOSE RANDOM (BEAKER) 127 mg/dL 70-105 H (test code = 652) CALCIUM (BEAKER) (test code 8.3 mg/dL 8.4-10.2 L = 697) EGFR (BEAKER) (test code = 62 mL/min/1.73 sq m ESTIMATED GFR IS NOT 1092) ACCURATE CRE ATININE CLEARANCE IN [place] EDICTING GLOMERULAR FILT RATION RATE. ESTIMATED GFR IS NOT APPLICABLE FOR DIALYSIS PATIENTS. HEPATITIS B SURFACE [id number] 06:15:00 Test Item Value Reference Range Interpretation Comments HEPATITIS B SURFACE ANTIGEN (2) Nonreactive Nonreactive (BEAKER) (test code = 2585) For chronic HD patients, draw HBsAg with each admission then every 30 days.CBC W/PLT COUNT & AUTO [id number] 05:45:00 Test Item Value Reference Range Interpretation Comments WHITE BLOOD CELL COUNT (BEAKER) 9.8 K/ L 3.5-10.5 (test code = 775) RED BLOOD CELL COUNT (BEAKER) 3.84 M/ L 4.63-6.08 L (test code = 761) HEMOGLOBIN (BEAKER) (test code = 11.5 GM/DL 13.7-17.5 L 410) HEMATOCRIT (BEAKER) (test code = 34.0 % 40.1-51.0 L 411) MEAN CORPUSCULAR VOLUME (BEAKER) 88.5 fL 79.0-92.2 (test code = 753) MEAN CORPUSCULAR HEMOGLOBIN 29.9 pg 25.7-32.2 (BEAKER) (test code = 751) MEAN CORPUSCULAR HEMOGLOBIN CONC 33.8 GM/DL 32.3-36.5 (BEAKER) (test code = 752) RED CELL DISTRIBUTION WIDTH 14.0 % 11.6-14.4 (BEAKER) (test code = 412) PLATELET COUNT (BEAKER) (test code 99 K/CU MM 150-450 L = 756) MEAN PLATELET VOLUME (BEAKER) 10.9 fL 9.4-12.4 (test code = 754) NUCLEATED RED BLOOD CELLS (BEAKER) 0 /100 WBC 0-0 (test code = 413) NEUTROPHILS RELATIVE PERCENT 70 % (BEAKER) (test code = 429) LYMPHOCYTES RELATIVE PERCENT 18 % (BEAKER) (test code = 430) MONOCYTES RELATIVE PERCENT 11 % (BEAKER) (test code = 431) EOSINOPHILS RELATIVE PERCENT 1 % (BEAKER) (test code = 432) BASOPHILS RELATIVE PERCENT 0 % (BEAKER) (test code = 437) NEUTROPHILS ABSOLUTE COUNT 6.87 K/ L 1.78-5.38 H (BEAKER) (test code = 670) LYMPHOCYTES ABSOLUTE COUNT 1.77 K/ L 1.32-3.57 (BEAKER) (test code = 414) MONOCYTES ABSOLUTE COUNT (BEAKER) 1.04 K/ L 0.30-0.82 H (test code = 415) EOSINOPHILS ABSOLUTE COUNT 0.07 K/ L 0.04-0.54 (BEAKER) (test code = 416) BASOPHILS ABSOLUTE COUNT (BEAKER) 0.02 K/ L 0.01-0.08 (test code = 417) IMMATURE GRANULOCYTES-RELATIVE 0 % 0-1 PERCENT (BEAKER) (test code = 2801) [id number] 11:14:00 Test Item Value Reference Range Interpretation Comments ACTIVATED CLOTTING TIME 108 sec TEST ED AT [facility] 6720 (BEAKER) (test code = [place] 441) [id number] SODIUM NA-STAT [id number] 10:49:00 Test Item Value Reference Range Interpretation Comments SODIUM (BEAKER) (test code = 381) 136 meq/L 135-148 POTASSIUM-STAT [id number] 10:49:00 Test Item Value Reference Range Interpretation Comments POTASSIUM (BEAKER) (test code = 4.1 meq/L 3.6-5.5 379) BLOOD GAS, [id number] 10:49:00 Test Item Value Reference Range Interpretation Comments PH ARTERIAL (BEAKER) (test code = 7.28 7.35-7.45 L 383) PCO2 ARTERIAL (BEAKER) (test code 50 mmHg 35-45 H = 384) PO2 ARTERIAL (BEAKER) (test code 73 mmHg 80-90 L = 385) O2 SATURATION ARTERIAL (BEAKER) 92.5 % 96.0-97.0 L (test code = 386) HCO3 ARTERIAL (BEAKER) (test code 23 mmol/L 21-29 = 388) BASE EXCESS ARTERIAL (BEAKER) -4.1 mmol/L -2.0-3.0 L (test code = 387) PATIENT TEMPERATURE (BEAKER) 37.0 C (test code = 1818) FIO2 (BEAKER) (test code = 1819) 21.0 % GLUCOSE-STAT [id number] 10:49:00 Test Item Value Reference Range Interpretation Comments GLUCOSE RANDOM (BEAKER) (test code 143 mg/dL 70-110 H = 652) HGB/HCT (H&H) - STAT [id number] 10:49:00 Test Item Value Reference Range Interpretation Comments HEMOGLOBIN (BEAKER) (test code = 11.4 g/dL 13.0-16.8 L 410) HEMATOCRIT (BEAKER) (test code = 34.0 % 40.0-50.0 L 411) [id number] 10:01:00 Test Item Value Reference Range Interpretation Comments ACTIVATED CLOTTING TIME 246 sec TEST ED AT [place] [address] (BEAKER) ([facility] = [facility] [place] [address]) [id number] 09:49:00 Test Item Value Reference Range Interpretation Comments ACTIVATED CLOTTING TIME 186 sec TEST ED AT [place] [address] [facility] (test code = [place] [address]) [id number] (MANUAL DIFFERENTIAL)2016-12-05 18:40:00 Test Item Value Reference Range Interpretation Comments NEUTROPHILS - REL (DIFF) 45 % (BEAKER) (test code = 1359) LYMPHOCYTES - REL (DIFF) 36 % (BEAKER) (test code = 1360) MONOCYTES - REL (DIFF) 5 % (BEAKER) (test code = 1361) EOSINOPHILS - REL (DIFF) 8 % (BEAKER) (test code = 1362) BASOPHILS - REL (DIFF) 2 % (BEAKER) (test code = 1363) METAMYELOCYTES-REL (DIFF) 1 % 0-0 H (BEAKER) (test code = 258) MYELOCYTES-REL (DIFF) 2 % 0-0 H (BEAKER) (test code = 1594) BANDS - REL (DIFF) 1 % 0-10 (BEAKER) (test code = 1348) NEUTROPHILS - ABS (DIFF) 2.79 K/ L 1.80-8.00 (BEAKER) (test code = 1365) LYMPHOCYTES - ABS (DIFF) 2.23 K/ L 1.48-4.50 (BEAKER) (test code = 1366) MONOCYTES - ABS (DIFF) 0.31 K/ L 0.00-1.30 (BEAKER) (test code = 1367) EOSINOPHILS - ABS (DIFF) 0.50 K/ L 0.00-0.50 (BEAKER) (test code = 1368) BASOPHILS - ABS (DIFF) 0.12 K/ L 0.00-0.20 (BEAKER) (test code = 1369) METAMYELOCTYES - ABS 0.06 K/ L 0.00-0.00 H (DIFF) (BEAKER) (test code = 261) BANDS-ABS (DIFF) (BEAKER) 0.1 K/ L 0.0-0.8 (test code = 1349) MYELOCYTES-ABS (DIFF) 0.12 K/ L 0.00-0.00 H (BEAKER) (test code = 1593) TOTAL COUNTED (BEAKER) 100 (test code = 1351) BANDS + SEGMENTED 2.85 NEUTROPHILS (BEAKER) (test code = 1352) WBC MORPHOLOGY (BEAKER) Normal (test code = 487) PLT MORPHOLOGY (BEAKER) Normal (test code = 486) OVALOCYTES (BEAKER) (test 1+ few Th is is a corrected code = 477) result. Previou s result was 2+ moderate on 12/05/2016 at 18 24 CDT POIKILOCYTES (BEAKER) 1+ few (test code = 966) Called to RN at 1831.CBC W/PLT COUNT & AUTO [id number] 18:18:00 Test Item Value Reference Range Interpretation Comments WHITE BLOOD CELL COUNT (BEAKER) 6.2 K/ L 3.5-10.5 (test code = 775) RED BLOOD CELL COUNT (BEAKER) 4.52 M/ L 4.63-6.08 L (test code = 761) HEMOGLOBIN (BEAKER) (test code = 13.6 GM/DL 13.7-17.5 L 410) HEMATOCRIT (BEAKER) (test code = 39.6 % 40.1-51.0 L 411) MEAN CORPUSCULAR VOLUME (BEAKER) 87.6 fL 79.0-92.2 (test code = 753) MEAN CORPUSCULAR HEMOGLOBIN 30.1 pg 25.7-32.2 (BEAKER) (test code = 751) MEAN CORPUSCULAR HEMOGLOBIN CONC 34.3 GM/DL 32.3-36.5 (BEAKER) (test code = 752) RED CELL DISTRIBUTION WIDTH 13.4 % 11.6-14.4 (BEAKER) (test code = 412) PLATELET COUNT (BEAKER) (test 140 K/CU MM 150-450 L code = 756) MEAN PLATELET VOLUME (BEAKER) 10.9 fL 9.4-12.4 (test code = 754) NUCLEATED RED BLOOD CELLS 0 /100 WBC 0-0 (BEAKER) (test code = 413) IMMATURE GRANULOCYTES-RELATIVE 0 % 0-1 PERCENT (BEAKER) (test code = 2801) B-TYPE NATRIURETIC FACTOR (BNP)2016-12-05 15:18:00 Test Item Value Reference Range Interpretation Comments B-TYPE NATRIURETIC PEPTIDE (BEAKER) 135 pg/mL 0-100 H (test code = 700) BASIC METABOLIC [id number] 15:11:00 Test Item Value Reference Range Interpretation Comments SODIUM (BEAKER) 137 meq/L 136-145 (test code = 381) POTASSIUM (BEAKER) 4.2 meq/L 3.5-5.1 (test code = 379) CHLORIDE (BEAKER) 108 meq/L 98-107 H (test code = 382) CO2 (BEAKER) (test 22 meq/L 22-29 code = 355) BLOOD UREA NITROGEN 16 mg/dL 7-21 (BEAKER) (test code = 354) CREATININE (BEAKER) 0.97 mg/dL 0.57-1.25 (test code = 358) GLUCOSE RANDOM 93 mg/dL 70-105 (BEAKER) (test code = 652) CALCIUM (BEAKER) 9.3 mg/dL 8.4-10.2 (test code = 697) EGFR (BEAKER) (test 76 mL/min/1.73 ESTIMA SAPPHIRE GFR IS code = 1092) sq m NOT ACCURATE CREATININE CLEARANCE IN PREDICTING GLOMERULAR FILTRATION RATE . ESTIMATED GFR I S NOT APPLICABLE FOR DIALYSIS PATIEN TS. [id number] 15:11:00 Test Item Value Reference Range Interpretation Comments ALBUMIN (KACEY) (test code = 1145) 4.0 g/dL 3.5-5.0 PROTHROMBIN TIME/[id number] 15:10:00 Test Item Value Reference Range Interpretation Comments PROTIME (KACEY) (test code = 14.9 seconds 11.7-14.7 H 759) INR (KACEY) (test code = 370) 1.2 <=5.9 RECOMMENDED COUMADIN/WARFARIN INR THERAPY RANGESSTANDARD DOSE: 2.0 - 3.0 Includes: PROPHYLAXIS for venous thrombosis, systemic embolization; TREATMENT for venous thrombosis and/or pulmonary embolus.HIGH RISK: Target INR is 2.5-3.5 for patients with mechanical heart valves.[id number] 13:21:00 Test Item Value Reference Range Interpretation Comments POC-CREATININE 1.1 mg/dL 0.6-1.[address] [facility] 6720 (KACEY) (test [place] code = 3223) [address] POC-EGFR (KACEY) 65 mL/min/1.73M2 (test code = 1860)
[2022-03-29 02:21] LABS: Absolute Lymphocytes (CBC) 2.1 K/uL (0.7-4.9); Hematocrit 40.7 % (39.6-49.0); Lymphocytes % 27.3 % (15.3-44.8); MCV 87.4 fL (80-100); MPV 8.4 fL (7.6-11.3); RBC Red Blood Cell Count 4.66 M/uL (4.33-5.43)
[2022-03-29 02:22] LABS: Protime INR 1.1
[2022-03-29] MEDS ORDERED: NA CHLORIDE 0.9% 1,000 ML ONE (02:39)
[2022-03-29 02:42] LABS: Bilirubin Direct 0.2 mg/dL (0-0.2); Bilirubin Total 0.6 mg/dL (0.2-1.0); Magnesium 2.1 mg/dL (1.6-2.4); Protein, Total 7.9 g/dL (6.4-8.2); Troponin High Sensitivity 23.9 pg/mL (<58.9)
[2022-03-29 02:53] LABS: Urine Blood Trace-intact (Negative); Urine Glucose Negative (Negative); Urine Protein 2+ (Negative)
[2022-03-29 03:53] LABS: SARS-COV-2 RT PCR NEGATIVE (NEGATIVE)
--- NOTE | 2022-03-29 03:59 | ER ---
Nurse's Notes [facility] Name: Marcel Hein Age: 81 yrs Sex: Male : 1940 Arrival Date: 03/28/2022 Time: 23:49 Bed 25 Private MD: Diagnosis: Headache;Cough;Acute upper respiratory infection, unspecified Presentation: 03/29 00:16 Chief complaint:. vc1 00:19 Chief complaint: Patient states: I have been having a bad headache on the top of my ha1 head since yesterday. Also, I feel weak. Coronavirus screen: Vaccine status: Patient reports receiving the 2nd dose of the covid vaccine. [facility]. Ebola Screen: No symptoms or risks identified at this time. Initial Sepsis Screen: Does the patient meet any 2 criteria? No. Patient's initial sepsis screen is negative. Does the patient have a suspected source of infection? No. Patient's initial sepsis screen is negative. Risk Assessment: Do you want to hurt yourself or someone else? Patient reports no desire to harm self or others. Onset of symptoms was March 29, 2022. 00:19 Method Of Arrival: Ambulatory ha1 00:19 Acuity: CHAD 3 ha1 Triage Assessment: 00:25 General: Appears comfortable, Behavior is calm, cooperative. Pain: Complains of pain in ha1 head Pain does not radiate. Pain currently is 3 out of 10 on a pain scale. Quality of pain is described as pressure, Alleviated by medications. EENT: No deficits noted. No signs and/or symptoms were reported regarding the EENT system. Neuro: Level of Consciousness is awake, alert, obeys commands, Oriented to person, place, time, situation. Cardiovascular: Patient's skin is warm and dry. Respiratory: Airway is patent Respiratory effort is even, unlabored, Respiratory pattern is regular, symmetrical. GI: Abdomen is flat, non-distended. : No signs and/or symptoms were reported regarding the genitourinary system. Derm: Skin is normal. Musculoskeletal: Circulation, motion, and sensation intact. Range of motion: intact in all extremities, Reports weakness in generalized. Historical: - Allergies: 00:25 No Known Allergies; ha1 - Home Meds: 00:25 metoprolol succinate 100 mg oral CSpX [Active]; clopidogrel oral [Active]; omeprazole ha1 40 mg Oral cpDR [Active]; losartan-hydrochlorothiazide 100-25 mg oral tab [Active]; - PMHx: 00:25 CAD; GERD; High Cholesterol; Hypertension; ha1 - Immunization history:: Adult Immunizations up to date. - Social history:: Smoking status: Patient/guardian denies using tobacco, the patient reports quitting approximately 15 years ago. - Family history:: not pertinent. Screenin:00 [facility] ED Fall Risk Assessment (Adult) History of falling in the last 3 months, bb including since admission No falls in past 3 months (0 pts) Confusion or Disorientation No (0 pts) Impaired Gait No (0 pts) Mobility Assist Device Used No (0 pt) Score/Fall Risk Level 0 - 2 = Low Risk Oriented to surroundings. Abuse screen: Denies threats or abuse. Nutritional screening: No deficits noted. Tuberculosis screening: No symptoms or risk factors identified. Assessment: 01:00 General: Appears in no apparent distress. Behavior is calm, cooperative. Neuro: Level bb of Consciousness is awake, alert, obeys commands, Oriented to person, place, time, situation. Cardiovascular: Capillary refill < 3 seconds Patient's skin is warm and dry. Respiratory: Respiratory effort is even, unlabored, Respiratory pattern is regular. GI: No signs and/or symptoms were reported involving the gastrointestinal system. Derm: Skin is pink, warm \T\ dry. Musculoskeletal: Circulation, motion, and sensation intact. 04:29 Reassessment: Patient is alert, oriented x 3, equal unlabored respirations, skin bb warm/dry/pink. Smitha RN at bedside for discharge instructions pt verbalized understanding of and agrees to plan of care discharge instructions given pt ambulated with steady gait to exit. Vital Signs: 00:19 BP 190 / 59; Pulse 55; Resp 16; Temp 98.3; Pulse Ox 98% on R/A; Weight 68.04 kg; Height ha1 5 ft. 5 in. (165.10 cm); Pain 3/10; 02:43 BP 152 / 56; Pulse 55; Resp 14; Temp 97.6; Pulse Ox 94% on R/A; rv1 04:27 BP 166 / 69; Pulse 64; Resp 16 S; Temp 97.7(O); Pulse Ox 98% ; bb 00:19 Body Mass Index 24.96 (68.04 kg, 165.10 cm) ha1 [place] Coma Score: 02:01 Eye Response: spontaneous(4). Verbal Response: oriented(5). Motor Response: obeys patrica commands(6). Total: 15. ED Course: 03/28 23:49 Patient arrived in ED. [email or web address] 03/29 00:14 Cristhian Chaves MD is Attending Physician. patrica 00:25 Triage completed. ha1 00:59 XRAY Chest (1 view) In Process Unspecified. EDMS 01:00 No provider procedures requiring assistance completed. bb 01:00 Patient has correct armband on for positive identification. Bed in low position. Call bb light in reach. Side rails up X 1. lease purchase driver on. Pulse ox on. NIBP on. Warm blanket given. 01:06 CT Head Brain wo Cont In Process Unspecified. EDMS 01:21 Yanet Medrano RN is Primary Nurse. bb 02:42 Blood Culture Adult (2) Sent. rv1 02:42 Lipase Sent. rv1 02:44 Inserted saline lock: 20 gauge in right in left antecubital area, using aseptic rv1 technique. Blood collected. 02:55 Urine Culture Sent. rv1 03:08 COVID-19/FLU A+B Sent. rv1 03:36 Blood Culture Adult (2) Sent. rv1 04:25 Yanet Medrano, RN is Primary Nurse. bb 04:25 IV discontinued, intact, bleeding controlled, No redness/swelling at site. Pressure bb dressing applied. Administered Medications: 02:45 Drug: NS 0.9% 500 ml Route: IV; Rate: bolus; Site: right antecubital; vc1 04:26 Follow up: IV Status: Order to discontinue infusion; IV Intake: 300ml bb 04:15 Drug: Rocephin (cefTRIAXone) 1 grams Route: IV; Rate: per protocol; Site: right bb antecubital; 04:20 Follow up: IV Status: Completed infusion; IV Intake: 10ml bb 04:26 Not Given (Physician Discretion): NS 0.9% 1000 ml IV at 125 ml/hr continuous bb Medication: 01:00 VIS not applicable for this client. bb Intake: 04:20 IV: 10ml; Total: 10ml. bb 04:26 IV: 300ml; Total: 310ml. bb Outcome: 03:59 Discharge ordered by . patrica 04:30 Discharged to home ambulatory. amie 04:30 Condition: stable 04:30 Discharge instructions given to patient, Instructed on discharge instructions, follow up and referral plans. medication usage, Demonstrated understanding of instructions, follow-up care, medications, Prescriptions given X 1. 04:31 Patient left the ED. bb Signatures: Dispatcher [employer] EDCristhian Bassett MD MD cha Ballard, Brenda RN RN Rekha Palacios [email or web address] Leticia Kelly RN RN vc1 Smitha Cowan RN RN ha1 Samina Bolton rv1 Corrections: (The following items were deleted from the chart) 02:45 02:44 Inserted saline lock: 20 gauge in right in left antecubital area, using aseptic rv1 technique. rv1
--- NOTE | 2022-03-29 04:00 | EDPHYS ---
Physician Documentation [facility] Name: Marcel Hein Age: 81 yrs Sex: Male : 1940 Arrival Date: 03/28/2022 Time: 23:49 Bed 25 Private MD: ED Physician Cristhian Chaves HPI: 03/29 01:57 This 81 yrs old Male presents to ER via Ambulatory with complaints of General patrica Weakness. 01:57 The patient complains of pain to the top of head, forehead, left frontal area, left patrica side of the back of head, right frontal area and right side of the back of head. The patient describes the headache as constant. Onset: The symptoms/episode began/occurred 2 day(s) ago. weak, thomas, cough. Associated signs and symptoms: Pertinent positives: sinus congestion. Severity of symptoms: At its worst the pain was mild, in the emergency department the pain is unchanged. Headache History: The patient has had previous headaches and this one is similar to previous episodes. The patient or guardian reports cough, flu symptoms, arthralgias, myalgias. Onset: The symptoms/episode began/occurred 2 day(s) ago. Severity of symptoms: At their worst the symptoms were mild, in the emergency department the symptoms are unchanged. Historical: - Allergies: 00:25 No Known Allergies; ha1 - Home Meds: 00:25 metoprolol succinate 100 mg oral CSpX [Active]; clopidogrel oral [Active]; omeprazole ha1 40 mg Oral cpDR [Active]; losartan-hydrochlorothiazide 100-25 mg oral tab [Active]; - PMHx: 00:25 CAD; GERD; High Cholesterol; Hypertension; ha1 - Immunization history:: Adult Immunizations up to date. - Social history:: Smoking status: Patient/guardian denies using tobacco, the patient reports quitting approximately 15 years ago. - Family history:: not pertinent. ROS: 01:57 Constitutional: Negative for fever, chills, and weight loss, Eyes: Negative for injury, patrica pain, redness, and discharge, ENT: Negative for injury, pain, and discharge, Neck: Negative for injury, pain, and swelling, Cardiovascular: Negative for chest pain, palpitations, and edema, Abdomen/GI: Negative for abdominal pain, nausea, vomiting, diarrhea, and constipation, Back: Negative for injury and pain, : Negative for injury, bleeding, discharge, and swelling, MS/Extremity: Negative for injury and deformity, Skin: Negative for injury, rash, and discoloration, Psych: Negative for depression, anxiety, suicide ideation, homicidal ideation, and hallucinations, Allergy/Immunology: Negative for hives, rash, and allergies, Endocrine: Negative for neck swelling, polydipsia, polyuria, polyphagia, and marked weight changes. :57 Respiratory: Positive for cough, with no reported sputum. :57 Neuro: Positive for headache. Exam: :57 Constitutional: This is a well developed, well nourished patient who is awake, alert, patrica and in no acute distress. Head/Face: Normocephalic, atraumatic. Eyes: Pupils equal round and reactive to light, extra-ocular motions intact. Lids and lashes normal. Conjunctiva and sclera are non-icteric and not injected. Cornea within normal limits. Periorbital areas with no swelling, redness, or edema. ENT: Nares patent. No nasal discharge, no septal abnormalities noted. Tympanic membranes are normal and external auditory canals are clear. Oropharynx with no redness, swelling, or masses, exudates, or evidence of obstruction, uvula midline. Mucous membranes moist. Neck: Trachea midline, no thyromegaly or masses palpated, and no cervical lymphadenopathy. Supple, full range of motion without nuchal rigidity, or vertebral point tenderness. No Meningismus. Chest/axilla: Normal chest wall appearance and motion. Nontender with no deformity. No lesions are appreciated. Cardiovascular: Regular rate and rhythm with a normal S1 and S2. No gallops, murmurs, or rubs. Normal PMI, no JVD. No pulse deficits. Respiratory: Lungs have equal breath sounds bilaterally, clear to auscultation and percussion. No rales, rhonchi or wheezes noted. No increased work of breathing, no retractions or nasal flaring. Abdomen/GI: Soft, non-tender, with normal bowel sounds. No distension or tympany. No guarding or rebound. No evidence of tenderness throughout. Back: No spinal tenderness. No costovertebral tenderness. Full range of motion. Male : Normal genitalia with no discharge or lesions. Skin: Warm, dry with normal turgor. Normal color with no rashes, no lesions, and no evidence of cellulitis. MS/ Extremity: Pulses equal, no cyanosis. Neurovascular intact. Full, normal range of motion. Neuro: Awake and alert, GCS 15, oriented to person, place, time, and situation. Cranial nerves II-XII grossly intact. Motor strength 5/5 in all extremities. Sensory grossly intact. Cerebellar exam normal. Normal gait. Psych: Awake, alert, with orientation to person, place and time. Behavior, mood, and affect are within normal limits. Vital Signs: 00:19 BP 190 / 59; Pulse 55; Resp 16; Temp 98.3; Pulse Ox 98% on R/A; Weight 68.04 kg; Height ha1 5 ft. 5 in. (165.10 cm); Pain 3/10; 02:43 BP 152 / 56; Pulse 55; Resp 14; Temp 97.6; Pulse Ox 94% on R/A; rv1 04:27 BP 166 / 69; Pulse 64; Resp 16 S; Temp 97.7(O); Pulse Ox 98% ; bb 00:19 Body Mass Index 24.96 (68.04 kg, 165.10 cm) ha1 Ucon Coma Score: 02:01 Eye Response: spontaneous(4). Verbal Response: oriented(5). Motor Response: obeys patrica commands(6). Total: 15. MDM: 00:14 Patient medically screened. patrica 02:01 Differential diagnosis: cluster headache, migraine, sinusitis. Differential Diagnosis patrica altered mental status, sepsis, flu, Bronchitis Influenza Upper Respiratory Infection Sinusitis Pharyngitis Viral Syndrome Pneumonia. Data reviewed: vital signs, nurses notes, lab test result(s), EKG, radiologic studies, CT scan, plain films. Data interpreted: monitoring manager: not applicable for this patient encounter. rate is 55 beats/min, rhythm is regular, Pulse oximetry: on room air is 98 %. Test interpretation: by ED physician or midlevel provider: ECG, plain radiologic studies. Counseling: I had a detailed discussion with the patient and/or guardian regarding: the historical points, exam findings, and any diagnostic results supporting the discharge/admit diagnosis, lab results, radiology results, the need for outpatient follow up, for definitive care, a family practitioner. 03/29 00:32 Order name: Basic Metabolic Panel; Complete Time: 02:50 patrica 03/29 00:32 Order name: CBC with Diff; Complete Time: 02:34 [facility] 03/29 00:32 Order name: LFT's; Complete Time: 02:50 [facility] 03/29 00:32 Order name: Magnesium; Complete Time: 02:50 [facility] 03/29 00:32 Order name: NT PRO-BNP; Complete Time: 02:50 [facility] 03/29 00:32 Order name: PT-INR; Complete Time: 02:34 [facility] 03/29 00:32 Order name: Troponin HS; Complete Time: 02:50 [facility] 03/29 00:32 Order name: XRAY Chest (1 view) [facility] 03/29 00:32 Order name: Lipase; Complete Time: 02:50 [facility] 03/29 00:32 Order name: Urine Culture [facility] 03/29 01:56 Order name: COVID-19/FLU A+B; Complete Time: 03:58 [facility] 03/29 01:56 Order name: Blood Culture Adult (2) [facility] 03/29 01:56 Order name: Lactate w/ 2H reflex if indic.; Complete Time: 02:50 [facility] 03/29 02:54 Order name: Urine Dipstick-Ancillary; Complete Time: 02:57 [facility] 03/29 00:32 Order name: EKG; Complete Time: 00:33 [facility] 03/29 00:32 Order name: Cardiac monitoring; Complete Time: 02:43 [facility] 03/29 00:32 Order name: EKG - Nurse/Tech; Complete Time: 02:43 [facility] 03/29 00:32 Order name: IV Saline Lock; Complete Time: 02:43 [facility] 03/29 00:32 Order name: Labs collected and sent; Complete Time: 02:43 [facility] 03/29 00:32 Order name: O2 Per Protocol; Complete Time: 02:43 [facility] 03/29 00:32 Order name: O2 Sat Monitoring; Complete Time: 02:43 [facility] 03/29 00:32 Order name: Urine Dipstick-Ancillary (obtain specimen); Complete Time: 02:55 [facility] 03/29 00:32 Order name: CT Head Brain wo Cont patrica Administered Medications: 02:45 Drug: NS 0.9% 500 ml Route: IV; Rate: bolus; Site: right antecubital; vc1 04:26 Follow up: IV Status: Order to discontinue infusion; IV Intake: 300ml bb 04:15 Drug: Rocephin (cefTRIAXone) 1 grams Route: IV; Rate: per protocol; Site: right bb antecubital; 04:20 Follow up: IV Status: Completed infusion; IV Intake: 10ml bb 04:26 Not Given (Physician Discretion): NS 0.9% 1000 ml IV at 125 ml/hr continuous bb Disposition Summary: 03/29/22 03:59 Discharge Ordered Location: Home [facility] Problem: new patrica Symptoms: have improved patrica Condition: Stable patrica Diagnosis - Headache patrica - Cough patrica - Acute upper respiratory infection, unspecified patrica Followup: [facility] - With: Private Physician - When: 2 - 3 days - Reason: Recheck today's complaints, Continuance of care, Re-evaluation by your physician Discharge Instructions: - Discharge Summary Sheet patrica - Cool Mist Vaporizer patrica - Upper Respiratory Infection, Adult, [id number] patrica - Cough, Adult, Mkik-sd-Euin patrica - Cough, Adult patrica Forms: - Medication Reconciliation Form [facility] - Thank You Letter patrica - Antibiotic Education [facility] - Prescription Opioid Use [facility] Prescriptions: - Zithromax Z-Pranav 250 mg Oral Tablet - take 1 tablet by ORAL route as directed for 5 days Day 1 - take two (2) tablets [facility] one time. Day 2, 3, 4 , 5 take one (1) tablet once daily.; 6 tablet; Refills: 0, Product Selection Permitted Signatures: Dispatcher [employer] Cristhian Rosario MD MD cha Ballard, Brenda, RN RN bb Leticia Kelly RN RN vc1 Smitha Cowan RN RN ha1
[2022-03-29] MEDS ORDERED: CEFTRIAXONE 1000 MG/VIAL ONE (04:12)
[2022-03-29 04:44] VITALS: BP 166/69; TEMP 97.7; O2SAT 98
--- NOTE | 2022-03-29 13:06 | RAD REPORT ---
EXAM DESCRIPTION: CT - Head Brain Wo Cont - 03/29/2022 6:43 am CLINICAL HISTORY: Headache, new or worsening COMPARISON: 04/09/2016 TECHNIQUE: Axial CT of the head obtained from the skull apex to the skull base without contrast. Thi s exam was performed according to our departmental dose-optimization program, which includes automate d exposure control, adjustment of the mA and/or kV according to patient size and/or use of iterative reconstruction technique. FINDINGS: No acute intracranial hemorrhage identified. No mass, mass effect, shift of the midline, a bnormal extra-axial fluid collection or CT evidence of acute ischemic change identified. The ventricu lar system and sulcal spaces are mildly enlarged compatible with mild cerebral atrophy. Scattered a reas of hypodensity throughout the supratentorial white matter are nonspecific and may be related to chronic small vessel ischemic change. The visualized paranasal sinuses and mastoid air cells are well aerated. No skull fracture identifi ed. Visualized orbits and globes are unremarkable. Atherosclerotic calcification of the intracranial internal carotid and vertebral arteries. IMPRESSION: 1. No acute intracranial abnormality by CT criteria. Electronically signed by: Duke Chen 03/29/2022 1:09 AM INDEPENDENT FREIGHT AGENT Due to temporary technical issues with the PACS/Fluency reporting system, reports are being signed by the in house radiologists without review as a courtesy to insure prompt reporting. The interpreting radiologist is fully responsible for the content of the report.
--- NOTE | 2022-03-29 14:32 | EKG ---
Test Date: 2022-03-29 Test Time: 02:34:14 Marine Underwriter: RV MEASUREMENT RESULTS: Intervals: Rate: 51 CA: QRSD: 174 QT: 524 QTc: 482 Rudolph: P: CA: QRS: 45 T: 66 INTERPRETIVE STATEMENTS: Sinus bradycardia Left bundle branch block Abnormal ECG Compared to ECG 01/07/2019 15:44:48 Right-axis deviation no longer present Electronically Signed On 03-29-22 14:31:14 [employer] SHIP[employer] by Masoud Fraga
--- NOTE | 2022-03-29 15:21 | RAD REPORT ---
EXAM DESCRIPTION: RAD - Chest Single View - 03/29/2022 12:57 am CLINICAL HISTORY: COUGH COMPARISON: None. FINDINGS: Single frontal radiograph view of the chest. Cardiomediastinal silhouette: Prior median sternotomy. Atherosclerotic calcification thoracic aorta. Cardiomegaly. Lungs: No consolidation, pneumothorax, or pleural effusion. Bones: Degenerative change of the spine Upper abdomen: No abnormality identified. IMPRESSION: 1. No acute pulmonary process identified. Cardiomegaly. Electronically signed by: Duke Chen 03/29/2022 1:07 AM [facility] PHYSICIAN Due to temporary technical issues with the PACS/Fluency reporting system, reports are being signed by the in house radiologists without review as a courtesy to insure prompt reporting. The interpreting radiologist is fully responsible for the content of the report.
== END 2022-03-29 04:31 | disposition home or self-care (01) ==
LOC: ER 23:40
DX: J06.9 Acute upper respiratory infection, unspecified (principal); R51.9 Headache, unspecified; Z20.822 Contact with and (suspected) exposure to COVID-19; I10 Essential (primary) hypertension; I25.10 Atherosclerotic heart disease of native coronary artery without angina pectoris
CPT/HCPCS: 93005; 87040 ×2; 87088; 85025; 87086; 80048; 36415; 83735; 85610; 80076; 83605; 81003; 84484; 83690; 83880; 0240U; 70450; 71045; J7030; 96361; 96374; 99284

== ENCOUNTER 2022-10-27 18:23 | Emergency (ER) | payer OTHER ==
--- OUTSIDE RECORDS SUMMARY | 2022-10-27 18:28 | XMS REPORT | Continuity of Care Document ---
:1940 Author Organization [facility] t Address [address] [place] [address] Care Team Providers Name Role Phone Sharpless Primary Care Physician Magaly Judd Attending Clinician Unavailable PATRIC ALTMAN Attending Clinician Unavailable PATRIC ALTMAN Admitting Clinician Unavailable Payers Payer Name Policy Type Policy Number Effective Date [facility]piration Date [id number] Common Sp suzanne ing Medicare 00:00:[address] [facility] Replace [facility] Problems Condition Condition Condition Status Onset Resolution Last Treating Co mments Source Name Details Category Date Date Treatment Clinician Date Nonrheumat Nonrheumat Disease Active C HI St ic aortic ic aortic 9-15 [place] s (valve) (valve) 00:00: Medical stenosis stenosis 00 [place] [id number] Stage 3a Problem Comm on chronic Spirit kidney - [facility] disease St (CKD) [facility] 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 - CHI stage 3B disease St (disorder) [facility] Disorder Circulatio Problem Com mon of n problem Spirit cardiovasc - CHI ular [facility] system [facility] [id number] History of Problem Co mmon coronary Spirit artery - [facility] stent St placement [facility] [id number] Encounter Problem Com mon for Spirit wellness - CHI examinatio [facility] n in adult [facility] [id number] Chronic Problem Common gastritis Spirit without - [facility] bleeding, St unspecifie [facility] gastritis Center type High High Problem Common cholestero cholestero Sp suzanne l l - [facility] [id number] +5th digit Problem Co mmon eff Spirit 12/26/19*CK - CHI D (chronic St kidney [facility] disease) Medical stage 3, Center GFR 30-59 ml/min [id number] 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 Spirit pain - [facility] CHF CHF Disease Recurre [facility] (congestiv (congestiv nce Colette kes e heart e heart Medical failure) failure) Center COPD COPD Disease Recurre [facility] (chronic (chronic nce [facility] obstructiv obstructiv Me dical e e Center pulmonary pulmonary disease) disease) S/P AVR S/P AVR Disease Active [facility] Hypertensi Hypertensi Disease Active C HI [facility] on [facility] Coronary Coronary Disease Active [facility] t artery artery [facility] disease disease Medical Center Stenosis Stenosis Disease Active [facility] t of of [facility] prosthetic prosthetic [facility] aortic aortic Center valve valve Allergies, Adverse Reactions, Alerts This patient has no known allergies or adverse reactions. Family History Family Member Diagnosis Comments Start Date Stop Date Source Natural brother Heart disease [facility] Social History Social Habit Start Date Stop Date Quantity Comments Source History of Tobacco Common Spirit - Use [facility] Alcohol intake 2016-12-10 2016-12-10 Current [facility] 00:00:00 00:00:00 non-drinker of Medical Ce nter alcohol (finding) Cigarettes smoked 2016-12-07 2016-12-07 [facility] current (pack per 00:00:00 00:00:00 Medical Center day) - Reported Tobacco use and 2016-12-07 2016-12-07 Never used [facility] exposure 00:00:00 00:00:00 [facility] Sex Assigned At [birth year] [facility] 00:00:00 00:00:00 [facility] Smoking Status Start Date Stop Date Source Never Smoker [facility] - [facility] Former Smoker 2021-04-09 00:00:00 2021-04-09 00:00:00 Common S pirit - [facility] Medications Ordered Filled Start Stop Current Ordering [...] 325 (65 00 Fe) mg Ferrous Ferrous 0 No 1{table QD Ferrous Sulfate 325 Sulfate 325 3-10 t} Sulfate (65 Fe) mg (65 Fe) mg 00:00: 325 (65 00 Fe) mg Ferrous Ferrous 0 No 1{table QD Ferrous Sulfate 325 Sulfate [...] MG 2-02 le} 100 MG 00:00: 00 Gabapentin Gabapentin 2021-0 No 1{capsu Gabapentin 100 MG 100 MG 2-02 le} 100 MG 00:00: 00 Albuterol Albuterol 2020-0 No TID Albuterol 90 MCG/ACT 90 MCG/ACT 2-02 90 MCG/ACT 00:00: 00 Gabapentin Gabapentin 1-0 No 1{capsu Gabapentin 100 MG 100 MG 2- le} 100 MG 00:00: 00 Albuterol Albuterol 2020-0 No TID Albuterol 90 MCG/ACT 90 MCG/ACT 2-02 90 MCG/ACT 00:00: 00 omeprazole 0 Yes 40mg QD Take [address] (PRILOSEC) 9-15 by mouth [facility] 40 MG 17:07: daily. Medical capsule 48 [place] losartan Yes 100mg QD Take [address] (COZAAR) 9-15 mg by [facility] 100 MG 17:07: mouth Medical tablet 48 daily. [facility] aspirin 81 Yes 81mg QD Take [address] MG EC 9-15 by mouth [facility] tablet 17:07: daily. Medical [address] [place] [address] pravastatin 2016-0 Yes 40mg QD Take [address] (PRAVACHOL) 9-15 by mouth Luke s 40 MG 17:07: daily. Medical tablet 48 [place] omeprazole 2017-0 Yes 40mg QD Take [address] (PRILOSEC) 9-15 by mouth [facility] 40 MG 17:07: daily. Medical capsule 48 [place] losartan Yes 100mg QD Take [address] (COZAAR) 9-15 mg by [facility] 100 MG 17:07: mouth Medical tablet 48 daily. [place] aspirin 81 Yes 81mg QD Take [address] MG EC 9-15 by mouth [facility] tablet 17:07: daily. Medical [address] [place] [address] pravastatin 2017-0 Yes 40mg QD Take [address] (PRAVACHOL) 9-15 by mouth Luke s 40 MG 17:07: daily. Medical tablet Center Clopidogrel Clopidogrel Yes Na Judd 1 tablet Common Bisulfate Bisulfate Spiri t [facility] Aspir-Low Aspir-Low Yes Na Judd 1 tablet Common Spirit [facility] Pravastatin Pravastatin Yes Na Judd 1 tablet Common Sodium Sodium [facility] Omeprazole Omeprazole Yes Na Judd 1 capsule Common 30 minutes Spirit before - [facility] morning [facility] Losartan Losartan Yes Na Judd 1 tablet Common Potassium-H Potassium-H S pirit CTZ CTZ [facility] Amlodipine Amlodipine Yes Na Judd 1 tablet Common Besylate Besylate [facility] Metoprolol Metoprolol Yes Na Judd 1 tablet Common Succinate Succinate Spiri t ER ER - [facility] Metoprolol Metoprolol No Metoprolol Succinate Succinate [...] Spirit OVER 65 OVER 65 09:44:00 - [facility] FLUZONE HIGH DOSE FLUZONE HIGH DOSE 2021-12-20 Completed Common Spirit OVER 65 OVER 65 09:44:00 - [facility] Prevnar 20 (PCV20) Prevnar 20 (PCV20) 2021-09-17 Completed [facility] 09:14:00 - [facility] Prevnar 20 (PCV) Prevnar 20 (PCV20) 2021-09-17 Completed [facility] 09:14:00 - [facility] Prevnar 20 (PCV20) Prevnar 20 (PCV20) 2021-09-17 Completed [facility] 09:14:00 - [facility] Prevnar 20 (PCV20) Prevnar 20 (PCV20) 2021-09-17 Completed [facility] 09:14:00 - [facility] Prevnar 20 (PCV20) Prevnar 20 (PCV20) 2021-09-17 Completed [facility] 09:14:00 - [facility] FluAD FluAD 2021-01-23 Completed [facility] 08:25:00 - [facility] FluAD FluAD 2021-01-23 Completed [facility] 08:25:00 - [facility] FluAD FluAD 2021-01-23 Completed [facility] 08:25:00 - [facility] FluAD FluAD 2021-01-23 Completed [facility] 08:25:00 - [facility] FluAD FluAD 2021-01-23 Completed [facility] 08:25:00 - [facility] FluAD FluAD 2021-01-23 Completed [facility] 08:25:00 - [facility] FluAD FluAD 2021-01-23 Completed [facility] 08:25:00 - [facility] FluAD FluAD 2021-01-23 Completed [facility] 08:25:00 - [facility] FluAD FluAD 2021-01-23 Completed [facility] 08:25:00 - [facility] Vital Signs Vital Name Observation Time Observation Value Comments Source blood pressure 2021-12-20 08:40:00 136 mm[Hg] [facility] - systolic [facility] blood pressure 2021-12-20 08:40:00 74 mm[Hg] [facility] - diastolic [facility] height 2021-12-20 08:40:00 65.00 [in_i] [facility] weight 2021-12-20 08:40:00 150.6 [lb_av] Common [facility] - [facility] temperature 2021-12-20 08:40:00 98.0 [degF] Common [facility] bmi 2021-12-20 08:40:00 25.06 kg/m2 Common S pirit [facility] oximetry 2021-12-20 08:40:00 96 % [facility] 2021-12-20 08:40:00 16 /min Comm on [facility] height 2021-09-17 08:00:00 65.00 [in_i] Common S pirit [facility] weight 2021-09-17 08:00:00 148.4 [lb_av] Common [facility] temperature 2021-09-17 08:00:00 97.4 [degF] Common [facility] bmi 2021-09-17 08:00:00 24.69 kg/m2 [facility] oximetry 2021-09-17 08:00:00 95 % Common S [facility] respiratory rate 2021-09-17 08:00:00 16 /min Comm on [facility] blood pressure 2021-09-17 08:00:00 134 mm[Hg] Common [facility] - systolic [facility] blood pressure 2021-09-17 08:00:00 73 mm[Hg] Common [facility] diastolic [facility] height 2021-09-17 08:20:00 65.00 [in_i] Common [facility] weight 2021-09-17 08:20:00 148.4 [lb_av] Common [facility] temperature 2021-09-17 08:20:00 97.4 [degF] Common S pirit [facility] bmi 2021-09-17 08:20:00 24.69 kg/m2 Common S [facility] oximetry 2021-09-17 08:20:00 95 % Common S [facility] respiratory rate 2021-09-17 08:20:00 16 /min Comm on [facility] blood pressure 2021-09-17 08:20:00 134 mm[Hg] Common [facility] - systolic [facility] blood pressure 2021-09-17 08:20:00 73 mm[Hg] Common [facility] - diastolic [facility] height 2021-06-04 08:00:00 65.00 [in_i] Common [facility] - [facility] weight 2021-06-04 08:00:00 150.8 [lb_av] Common [facility] temperature 2021-06-04 08:00:00 97.8 [degF] Common [facility] bmi 2021-06-04 08:00:00 25.09 kg/m2 [facility] oximetry 2021-06-04 08:00:00 98 % [facility] respiratory rate 2021-06-04 08:00:00 16 /min Comm on [facility] blood pressure 2021-06-04 08:00:00 138 mm[Hg] Common [facility] - systolic [facility] blood pressure 2021-06-04 08:00:00 57 mm[Hg] Common [facility] - diastolic [facility] height 2021-04-09 15:20:00 65.00 [in_i] Common [facility] weight 2021-04-09 15:20:00 147.6 [lb_av] [facility] bmi 2021-04-09 15:20:00 24.56 kg/m2 [facility] S [facility] height 2021-03-05 08:40:00 65.00 [in_i] Common S [facility] weight 2021-03-05 08:40:00 147.6 [lb_av] [facility] temperature 2021-03-05 08:40:00 97.5 [degF] [facility] bmi 2021-03-05 08:40:00 24.56 kg/m2 [facility] oximetry 2021-03-05 08:40:00 97 % Common [facility] respiratory rate 2021-03-05 08:40:00 16 /min Comm on [facility] blood pressure 2021-03-05 08:40:00 160 mm[Hg] Common [facility] - systolic [facility] blood pressure 2021-03-05 08:40:00 50 mm[Hg] Common [facility] - diastolic [facility] Procedures This patient has no known procedures. Encounters Start End Encounter Admission Attending Care Care Encounter Source Date/Time Date/Time Type Type Clinicians Facility Department ID 2022-03-23 Outpatient Judd, Na STLMLC STLMLC [id number] 2 Common 15:05:01 [facility] 2021-12-17 Outpatient Judd, Na STLMLC STLMLC [id number] 2 Common 07:22:00 [facility] 2021-09-15 Outpatient Judd, Na STLMLC STLMLC [id number] 2 Common 10:28:02 [facility] 2021-06-03 Outpatient Judd, Na STLMLC STLMLC [id number] 2 Common 10:59:01 [facility] 2021-04-21 Outpatient Judd, Na STLMLC STLMLC [id number] 2 Common 14:34:56 [facility] 2021-04-21 Outpatient Judd, Na STLMLC STLMLC [id number] 2 Common 14:22:03 [id number] [facility] 2021-04-21 Outpatient Judd, Na STLMLC STLMLC [id number] 2 Common 13:49:20 [id number] [facility] 2021-04-21 Outpatient Judd, Na STLMLC STLMLC [id number] 2 Common 13:47:08 [id number] [facility] 2021-04-21 Outpatient Judd, Na STLMLC STLMLC [id number] 2 Common 13:46:24 [id number] [facility] 2021-04-21 Outpatient Judd, Na STLMLC STLMLC [id number] 2 Common 13:11:38 [id number] [facility] 2021-04-21 Outpatient Judd, Na STLMLC STLMLC [id number] 2 Common 13:04:55 [id number] [facility] 2021-04-21 Outpatient Judd, Na STLMLC STLMLC [id number] 2 Common 12:40:43 [id number] [facility] 2021-04-21 Outpatient Judd, Na STLMLC STLMLC [id number] 2 Common 12:38:00 [id number] [facility] 2021-04-21 Outpatient Judd, Na STLMLC STLMLC [id number] 2 Common 12:37:18 [id number] [facility] 2021-04-21 Outpatient Judd, Na STLMLC STLMLC [id number] 2 Common 12:36:39 [id number] [facility] 2021-04-21 Outpatient Judd, Na STLMLC STLMLC [id number] 2 Common 12:31:15 [id number] [facility] 2021-04-21 Outpatient Judd, Na STLMLC STLMLC [id number] 2 Common 12:27:41 [id number] [facility] 2021-04-21 Outpatient Judd, Na STLMLC STLMLC [id number] 2 Common 12:03:44 [id number] [facility] 2021-04-21 Outpatient Judd, Na STLMLC STLMLC [id number] 2 Common 12:03:02 [id number] [facility] 2021-04-21 Outpatient Judd, Na STLMLC STLMLC [id number] 2 Common 11:36:29 [id number] [facility] 2021-04-21 Outpatient Judd, Na STLMLC STLMLC [id number] 2 Common 11:35:53 [id number] [facility] 2021-04-21 Outpatient Judd, Na STLMLC STLMLC [id number] 2 Common 11:29:36 [id number] [facility] 2021-04-21 Outpatient Judd, Na STLMLC STLMLC [id number] 2 Common 11:16:56 [id number] [facility] 2021-12-20 2021-12-20 OFFICE STLMLC STLMLC [id number] Co mmon 00:00:00 00:00:00 VISIT Spirit ESTAB PT - CHI LEVEL 4 [facility] 2021-09-17 2021-09-17 (TEL) STLMLC STLMLC [id number] Co mmon 00:00:00 00:00:00 Spirit - CH[facility] 2021-09-17 2021-09-17 SUB ANNUAL STLMLC STLMLC [id number] Common 00:00:00 00:00:00 MCR Spirit WELLNESS - CHI VISIT [facility] 2021-09-17 2021-09-17 OFFICE STLMLC STLMLC [id number] Co mmon 00:00:00 00:00:00 VISIT EST Spir it PT LEVEL 3 - CHI [facility] 2021-06-04 2021-06-04 OFFICE STLMLC STLMLC [id number] Co mmon 00:00:00 00:00:00 VISIT Spirit ESTAB PT - CHI LEVEL 4 [facility] 2021-04-09 2021-04-09 OL DIG E/M STLMLC STLMLC [id number] Common 00:00:00 00:00:00 SVC 11-20 Spir it MIN - CHI [facility] 2021-04-07 2021-04-07 (TEL) STLMLC STLMLC [id number] Co mmon 00:00:00 00:00:00 Spirit - CHI [facility] 2021-03-05 2021-03-05 OFFICE STLMLC STLMLC [id number] Co mmon 00:00:00 00:00:00 VISIT Spirit ESTAB PT - CHI LEVEL 4 [facility] 2021-02-23 2021-02-23 (TEL) STLMLC STLMLC [id number] Co mmon 00:00:00 00:00:00 [facility] - [facility] 2020-12-03 2020-12-03 Outpatient STLMLC STLMLC [id number] Common 00:00:00 00:00:00 [facility] 2020-09-01 2020-09-01 Outpatient STLMLC STLMLC [id number] Common 00:00:00 00:00:00 [facility] 2020-08-26 2020-08-26 Outpatient STLMLC STLMLC [id number] Common 00:00:00 00:00:00 [facility] 2020-06-03 2020-06-03 Outpatient STLMLC STLMLC [id number] Common 00:00:00 00:00:00 [facility] 2020-06-02 2020-06-02 Outpatient STLMLC STLMLC [id number] Common 00:00:00 00:00:00 [facility] 2020-05-07 2020-05-07 Outpatient STLMLC STLMLC [id number] Common 00:00:00 00:00:00 [facility] 2020-05-06 2020-05-06 Outpatient STLMLC STLMLC [id number] Common 00:00:00 00:00:00 [facility] 2020-04-28 2020-04-28 Outpatient STLMLC STLMLC [id number] Common 00:00:00 00:00:00 [facility] 2020-04-28 2020-04-28 Outpatient STLMLC STLMLC [id number] Common 00:00:00 00:00:00 [facility] 2020-04-27 2020-04-27 Outpatient STLMLC STLMLC [id number] Common 00:00:00 00:00:00 [facility] 2020-02-04 2020-02-04 Outpatient STLMLC STLMLC [id number] Common 00:00:00 00:00:00 [facility] 2020-02-01 2020-02-01 Outpatient STLMLC STLMLC [id number] Common 00:00:00 00:00:00 [facility] 2020-01-29 2020-01-29 Outpatient STLMLC STLMLC [id number] Common 00:00:00 00:00:00 [facility] 2019-11-05 2019-11-05 [id number] Common 09:00:00 09:00:00 [employer] [facility] 2019-09-30 2019-09-30 Outpatient Huber Ngot [id number] Common 15:20:00 15:20:[address] [facility] 2019-06-28 2019-06-28 Outpatient Huber Pinedo 29 [id number] Common 15:20:00 15:20:[address] [facility] Results Test Description Test Time Test Comments [...] NOT 1092) ACCURATE CRE ATININE CLEARANCE IN OR EDICTING GLOMERULAR FILT RATION RATE. ESTIMATED GFR IS NOT APPLICABLE FOR DIALYSIS PATIENTS. HEPATITIS B SURFACE [id number] 06:15:00 Test Item Value Reference Range Interpretation Comments HEPATITIS B SURFACE ANTIGEN (2) Nonreactive Nonreactive (BEAKER) (test code = 2585) For chronic HD patients, draw HBsAg with each admission then every 30 days.CBC W/PLT COUNT & AUTO [id number] 05:45:00 Test Item Value Reference Range Interpretation [...] 0-1 PERCENT (BEAKER) (test code = 2801) [id number] 11:14:00 Test Item Value Reference Range Interpretation Comments ACTIVATED CLOTTING TIME 108 [address] [facility] 6720 (BEAKER) (test code = YONATHAN Torres [facility] 441) [address] SODIUM NA-STAT [id number] 10:49:00 Test Item Value Reference Range Interpretation Comments SODIUM (BEAKER) (test code = 381) 136 meq/L 135-148 POTASSIUM-STAT [id number] 10:49:00 Test Item Value Reference Range Interpretation Comments POTASSIUM (BEAKER) (test code = 4.1 meq/L 3.6-5.5 379) BLOOD GAS, [id number] 10:49:00 Test Item Value Reference Range Interpretation [...] (test code = 1819) 21.0 % GLUCOSE-STAT [id number] 10:49:00 Test Item Value Reference Range Interpretation Comments GLUCOSE RANDOM (BEAKER) (test code 143 mg/dL 70-110 H = 652) HGB/HCT (H&H) - STAT [id number] 10:49:00 Test Item Value Reference Range Interpretation Comments HEMOGLOBIN (BEAKER) (test code = 11.4 g/dL 13.0-16.8 L 410) HEMATOCRIT (BEAKER) (test code = 34.0 % 40.0-50.0 L 411) [id number] 10:01:00 Test Item Value Reference Range Interpretation Comments ACTIVATED CLOTTING TIME 246 sec TEST ED AT [place] [address] (BEAKER) (test code = YONATHAN Torres [facility] 441) [id number] 09:49:00 Test Item Value Reference Range Interpretation Comments ACTIVATED CLOTTING TIME 186 sec TEST ED AT [facility] 6720 (BEAKER) (test code = YONATHAN [place] 441) [id number] (MANUAL DIFFERENTIAL)2016-12-05 18:40:00 Test Item Value Reference [...] RN at 1831.CBC W/PLT COUNT & AUTO [id number] 18:18:00 Test Item Value Reference Range Interpretation [...] H (test code = 700) BASIC METABOLIC [id number] 15:11:00 Test Item Value Reference Range Interpretation [...] GFR I S NOT APPLICABLE FOR DIALYSIS PATILEE TS. [id number] 15:11:00 Test Item Value Reference Range Interpretation Comments ALBUMIN (BEAKER) (test code = 1145) 4.0 g/dL 3.5-5.0 PROTHROMBIN [id number] 15:10:00 Test Item Value Reference Range Interpretation Comments PROTIME (BEAKER) (test code = 14.9 seconds 11.7-14.7 H 759) INR (BEAKER) (test code = 370) 1.2 <=5.9 RECOMMENDED COUMADIN/WARFARIN INR THERAPY RANGESSTANDARD DOSE: 2.0 - 3.0 Includes: PROPHYLAXIS for venous thrombosis, systemic embolization; TREATMENT for venous thrombosis and/or pulmonary embolus.HIGH RISK: Target INR is 2.5-3.5 for patients with mechanical heart valves.[id number] 13:21:00 Test Item Value Reference Range Interpretation Comments POC-CREATININE 1.1 mg/dL 0.6-1.3 TESTED AT [facility] 6720 (BEAKER) (test [place] code = 8135) [address] POC-EGFR (BEAKER) 65 mL/min/1.73M2 (test code = 5950)
--- NOTE | 2022-10-27 18:51 | EDPHYS ---
Physician Documentation [facility] Name: Marcel Hein Age: 82 yrs Sex: Male : 1940 Arrival Date: 10/27/2022 Time: 18:23 Bed IW3 Private MD: ED Physician Kevin Santa HPI: 10/27 19:15 This 82 yrs old Male presents to ER via Ambulatory with complaints of Ear Pain.snw 19:15 The patient presents with pain, that is acute. The complaints affect the left ear. snw Onset: The symptoms/episode began/occurred 5 day(s) ago, and became persistent. Associated signs and symptoms: The patient has no apparent associated signs or symptoms, Pertinent negatives: fever, lightheadedness, vertigo, vomiting. Severity of symptoms: At their worst the symptoms were moderate. The patient has not experienced similar symptoms in the past. Historical: - Allergies: 18:37 No Known Drug Allergies; ll1 - PMHx: 18:37 CAD; GERD; High Cholesterol; Hypertension; ll1 - Immunization history:: Adult Immunizations up to date. - Social history:: Smoking status: Patient denies any tobacco usage or history of. ROS: 19:15 Constitutional: Negative for fever, chills, and weight loss, Eyes: Negative for injury, snw pain, redness, and discharge, Neck: Negative for injury, pain, and swelling, Cardiovascular: Negative for chest pain, palpitations, and edema, Respiratory: Negative for shortness of breath, cough, wheezing, and pleuritic chest pain, Abdomen/GI: Negative for abdominal pain, nausea, vomiting, diarrhea, and constipation, Back: Negative for injury and pain, : Negative for injury, bleeding, discharge, and swelling, MS/Extremity: Negative for injury and deformity, Skin: Negative for injury, rash, and discoloration, Neuro: Negative for headache, weakness, numbness, tingling, and seizure, Psych: Negative for depression, anxiety, suicide ideation, homicidal ideation, and hallucinations. 19:15 ENT: Positive for ear pain. Exam: 19:12 Constitutional: This is a well developed, well nourished patient who is awake, alert, snw and in no acute distress. Head/Face: Normocephalic, atraumatic. Eyes: Pupils equal round and reactive to light, extra-ocular motions intact. Lids and lashes normal. Conjunctiva and sclera are non-icteric and not injected. Cornea within normal limits. Periorbital areas with no swelling, redness, or edema. Neck: Trachea midline, no thyromegaly or masses palpated, and no cervical lymphadenopathy. Supple, full range of motion without nuchal rigidity, or vertebral point tenderness. No Meningismus. Chest/axilla: Normal chest wall appearance and motion. Nontender with no deformity. No lesions are appreciated. Cardiovascular: Bradycardic rate and rhythm with a normal S1 and S2. No gallops, murmurs, or rubs. Normal PMI, no JVD. No pulse deficits. Pt takes multiple antihypertensives that include Metoprolol 50mg ER. Encouraged pt to cut tabs in half and only take 25mg daily until follow up the PCP. Respiratory: Lungs have equal breath sounds bilaterally, clear to auscultation and percussion. No rales, rhonchi or wheezes noted. No increased work of breathing, no retractions or nasal flaring. Abdomen/GI: Soft, non-tender, with normal bowel sounds. No distension or tympany. No guarding or rebound. No evidence of tenderness throughout. Back: No spinal tenderness. No costovertebral tenderness. Full range of motion. Skin: Warm, dry with normal turgor. Normal color with no rashes, no lesions, and no evidence of cellulitis. MS/ Extremity: Pulses equal, no cyanosis. Neurovascular intact. Full, normal range of motion. Neuro: Awake and alert, GCS 15, oriented to person, place, time, and situation. Cranial nerves II-XII grossly intact. Motor strength 5/5 in all extremities. Sensory grossly intact. Cerebellar exam normal. Normal gait. Psych: Awake, alert, with orientation to person, place and time. Behavior, mood, and affect are within normal limits. 19:12 ENT: External ear(s): are unremarkable, Positive vesicle, abrasion to pinna at canal and then exudate inside canal with positive tug test pain. Vital Signs: 18:37 BP 149 / 55; Pulse 47; Resp 17; Temp 98.2; Pulse Ox 97% on R/A; ll1 MDM: 18:47 Patient medically screened. snw Administered Medications: 19:14 Drug: Amoxicillin-Clavulanate PO 875 mg Route: PO; as6 19:14 Follow up: Response: No adverse reaction as6 Disposition Summary: 10/27/22 18:50 Discharge Ordered Location: Home snw Condition: Stable snw Diagnosis - Other otitis externa, left ear snw Followup: snw - With: Emergency Department - When: As needed - Reason: Worsening of condition Followup: snw - With: Private Physician - When: 5 - 6 days - Reason: Recheck today's complaints, Continuance of care, Re-evaluation by your physician Discharge Instructions: - Discharge Summary Sheet snw - Bradycardia, Adult snw - Ear Drops, Adult snw - Otitis Externa snw Forms: - Medication Reconciliation Form snw - Thank You Letter snw - Antibiotic Education snw - Prescription Opioid Use snw - Patient Portal Instructions snw Prescriptions: - Augmentin 875-125 mg Oral Tablet - take 1 tablet by ORAL route every 12 hours for 10 days; 20 tablet; Refills: 0, snw Product Selection Permitted - Cortisporin-TC 3.3-3-10-0.5 mg/mL Otic drops,suspension - instill 4 drops by OTIC route every 6 hours for 7 days; 1 unit; Refills: 0, snw Product Selection Permitted Addendum: 10/31/2022 10:52 Co-signature as Attending Physician, Kevin Santa MD I reviewed the patient's care r n provided by the Advanced Practice Provider and agree with the diagnosis and treatment plan. Signatures: Mana Quintanilla, DISTRIBUTION LINEMAN-C DISTRI[employer]ION LINEMAN-Csnw Kevin Santa MD MD rn Lewis, Lynsay, RN RN ll1 Duane Fontanez RN RN as6
--- NOTE | 2022-10-27 18:51 | ER ---
Nurse's Notes [facility] Name: Marcel Hein Age: 82 yrs Sex: Male : 1940 Arrival Date: 10/27/2022 Time: 18:23 Bed IW3 Private MD: Diagnosis: Other otitis externa, left ear Presentation: 10/27 18:37 Chief complaint: Patient states: L ear pain, swelling, and drainage for 5 days. ll1 Coronavirus screen: Client denies travel out of the [place] in the last 14 days. At this time, the client does not indicate any symptoms associated with coronavirus-19. Ebola Screen: Patient denies travel to an Ebola-affected area in the 21 days before illness onset. Initial Sepsis Screen: Does the patient meet any 2 criteria? No. Patient's initial sepsis screen is negative. Does the patient have a suspected source of infection? Yes: Skin breakdown/wound. Risk Assessment: Do you want to hurt yourself or someone else? Patient reports no desire to harm self or others. Onset of symptoms was October 23, 2022. 18:37 Method Of Arrival: Ambulatory ll1 18:37 Acuity: CHAD 4 ll1 Triage Assessment: 18:39 General: Appears uncomfortable, Behavior is calm, cooperative, appropriate for age. ll1 Pain: Complains of pain in left ear Quality of pain is described as aching. EENT: Reports pain in left ear slight drainage. Historical: - Allergies: 18:37 No Known Drug Allergies; ll1 - PMHx: 18:37 CAD; GERD; High Cholesterol; Hypertension; ll1 - Immunization history:: Adult Immunizations up to date. - Social history:: Smoking status: Patient denies any tobacco usage or history of. Screenin:14 [facility] ED Fall Risk Assessment (Adult) Score/Fall Risk Level 0 - 2 = Low Risk as6 Oriented to surroundings, Maintained a safe environment, Educated pt \T\ family on fall prevention, incl call for assistance when getting out of bed, Hourly rounding (assess needs \T\ fall precautionary measures) done. Abuse screen: Denies threats or abuse. Nutritional screening: No deficits noted. Tuberculosis screening: No symptoms or risk factors identified. Assessment: 19:14 Reassessment: No changes from previously documented assessment. Patient and/or family as6 updated on plan of care and expected duration. Pain level reassessed. Patient is alert, oriented x 3, equal unlabored respirations, skin warm/dry/pink. Vital Signs: 18:37 BP 149 / 55; Pulse 47; Resp 17; Temp 98.2; Pulse Ox 97% on R/A; ll1 ED Course: 18:26 Patient arrived in ED. rg4 18:35 Mana Quintanilla FNP-C [facility]. snw 18:35 Kevin Santa MD is Attending Physician. snw 18:38 Triage completed. ll1 18:39 Arm band placed on. ll1 19:14 No provider procedures requiring assistance completed. Patient did not have IV access as6 during this emergency room visit. 19:15 Patient has correct armband on for positive identification. Bed in low position. Call as6 light in reach. Side rails up X 1. Provided Education on: n/a. Administered Medications: 19:14 Drug: Amoxicillin-Clavulanate PO 875 mg Route: PO; as6 19:14 Follow up: Response: No adverse reaction as6 Medication: 19:15 VIS not applicable for this client. as6 Outcome: 18:50 Discharge ordered by . snw 19:14 Discharged to home ambulatory. as6 19:14 Condition: stable 19:14 Discharge instructions given to patient, family, Instructed on discharge instructions, follow up and referral plans. medication usage, Demonstrated understanding of instructions, follow-up care, medications, Prescriptions given X 2. 19:15 Patient left the ED. as6 Signatures: Mana Quintanilla FNP-C FNP-Noemy Back rg4 Jamia Madera, [place] RN ll1 Duane Fontanez RN RN as6
[2022-10-27] MEDS ORDERED: AMOX/K CLAV 875 MG TAB ONE (19:20)
[2022-10-27 19:23] VITALS: BP 149/55; TEMP 98.2; O2SAT 97
== END 2022-10-27 19:15 | disposition home or self-care (01) ==
LOC: ER 18:23
DX: H60.8X2 Other otitis externa, left ear (principal); I10 Essential (primary) hypertension
CPT/HCPCS: 99283

== ENCOUNTER 2023-06-30 17:46 | Emergency (ER) | payer OTHER ==
[2023-06-30 19:48] LABS: SARS-CoV-2 Antigen CONTROL BLUE LINE VIS/BG OK
[2023-06-30 19:49] LABS: SARS-CoV-2 Antigen Rapid Res Negative (Negative)
--- NOTE | 2023-06-30 20:31 | RAD REPORT ---
EXAM DESCRIPTION: RAD - Chest Pa And Lat (2 Views) - 06/30/2023 8:10 pm CLINICAL HISTORY: COUGH COMPARISON: Chest Pa And Lat (2 Views) dated 12/20/2022; Chest Single View dated 03/29/2022; Chest Pa A nd Lat (2 Views) dated 09/05/2018; Chest Pa And Lat (2 Views) dated 10/14/2016 FINDINGS: Lines: None. Lungs: No evidence of edema or pneumonia. Pleural: No significant pleural effusions or pneumothorax. Cardiac: Mild cardiomegaly. Mediastinum: Within normal limits. Bones: No acute fractures. Sternotomy. Other: None IMPRESSION: No acute cardiopulmonary disease.
[2023-06-30] MEDS ORDERED: BENZONATATE 100 MG CAP PO ONE (20:49)
--- NOTE | 2023-06-30 21:09 | EDPHYS ---
Physician Documentation [facility] Name: Marcel Hein Age: 83 yrs Sex: Male : 1940 Arrival Date: 06/30/2023 Time: 17:46 Bed 14 Private MD: Maria Eugenia Nelson ED Physician Saad Shaver HPI: 06/29 20:15 This 83 yrs old Male presents to ER via Ambulatory with complaints of Cough, cp Sore Throat. 20:15 The patient or guardian reports cough, that is constant, with no sputum. cp 20:15 Onset: The symptoms/episode began/occurred 10 day(s) ago. cp 20:15 Associated signs and symptoms: Pertinent positives: sore throat, headache from cp coughing, Pertinent negatives: chest pain, diarrhea, fever, vomiting. 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 - Infectious Disease History:: Denies. - Social history:: Smoking status: Patient denies any tobacco usage or history of. ROS: 20:20 Constitutional: Negative for body aches, chills, fever, poor PO intake, cp 20:20 Eyes: Negative for injury, pain, redness, and discharge, cp 20:20 ENT: Positive for sore throat, Negative for drainage from ear(s), ear pain, difficulty swallowing, difficulty handling secretions, 20:20 Cardiovascular: Negative for chest pain, edema, palpitations, 20:20 Respiratory: Positive for cough, with no reported sputum, Negative for shortness of breath, wheezing, 20:20 Abdomen/GI: Negative for abdominal pain, nausea, vomiting, and diarrhea, 20:20 : Negative for urinary symptoms, 20:20 Neuro: Positive for headache, Negative for altered mental status, dizziness, weakness, 20:20 All other systems are negative, Exam: 20:25 Constitutional: The patient appears in no acute distress, alert, awake, comfortable, cp non-toxic, well developed, well nourished, 20:25 Head/Face: Normocephalic, atraumatic. cp 20:25 Eyes: Periorbital structures: appear normal, Conjunctiva: normal, no exudate, no injection, Sclera: no appreciated abnormality, Lids and lashes: appear normal, bilaterally, 20:25 ENT: External ear(s): are unremarkable, Ear canal(s): are normal, clear, TM's: dullness, bilaterally, Nose: is normal, Mouth: Lips: moist, Oral mucosa: pink and intact, moist, Posterior pharynx: Airway: no evidence of obstruction, patent, Tonsils: with erythema, no enlargement, no exudate, swelling, is not appreciated, erythema, that is mild, exudate, is not appreciated, Voice: is normal, 20:25 Neck: ROM/movement: is normal, is supple, without pain, no range of motions limitations, no meningismus, 20:25 Chest/axilla: Inspection: normal, Palpation: is normal, no crepitus, no tenderness, 20:25 Cardiovascular: Rate: normal, Rhythm: regular, Edema: is not appreciated, JVD: is not appreciated, 20:25 Respiratory: the patient does not display signs of respiratory distress, Respirations: normal, no use of accessory muscles, no retractions, labored breathing, is not present, Breath sounds: bronchial sounds, that are mild, are heard diffusely, decreased breath sounds, are not appreciated, stridor, is not appreciated, wheezing: is not appreciated, 20:25 Abdomen/GI: Inspection: abdomen appears normal, Palpation: abdomen is soft and non-tender, in all quadrants, 20:25 Back: pain, is absent, ROM is normal, 20:25 Skin: no rash present. 20:25 Neuro: Orientation: to person, place \T\ time. Mentation: is normal, Vital Signs: 18:12 BP 149 / 98; Pulse 60; Resp 18; Temp 98; Pulse Ox 99% ; Weight 68.04 kg; Height 5 ft. 5 ll1 in. ; 18:12 Body Mass Index 24.96 (68.04 kg, 165.1 cm) ll1 MDM: 18:27 Patient medically screened. cp 20:30 Differential Diagnosis: Bronchitis Influenza Viral Syndrome Pneumonia. cp 21:08 Data reviewed: vital signs, nurses notes, lab test result(s), radiologic studies, plain cp films, and as a result, I will discharge patient. 21:08 I considered the following discharge prescriptions or medication management in the emergency department Medications were administered in the Emergency Department. See MAR. Care significantly affected by the following chronic conditions: Hypertension. Counseling: I had a detailed discussion with the patient and/or guardian regarding the historical points, exam findings, and any diagnostic results supporting the discharge/admit diagnosis, lab results, radiology results, to return to the emergency department if symptoms worsen or persist or if there are any questions or concerns that arise at home. Response to treatment: the patient's symptoms have mildly improved after treatment, and as a result, I will discharge patient. 06/29 19:03 Order name: Strep; Complete Time: 20:29 cp 06/29 19:03 Order name: Influenza Screen (a \T\ B); Complete Time: 20:29 cp 06/29 19:03 Order name: SARS RAPID; Complete Time: 20:29 cp 06/29 19:59 Order name: Throat Culture EDMS 06/29 19:03 Order name: XRAY Chest Pa And Lat (2 Views); Complete Time: 21:03 cp Administered Medications: 20:51 Drug: Tessalon Perle PO 200 mg PO once Route: PO; tl4 Disposition: 06/30 01:43 Co-signature as Attending Physician, Saad Shaver MD I reviewed the patient's care rt provided by the Advanced Practice Provider and agree with the diagnosis and treatment plan. Disposition Summary: 06/30/23 21:09 Discharge Ordered Notes: Location: Home cp Problem: new cp Symptoms: have improved cp Condition: Stable cp Diagnosis - Cough cp - Acute pharyngitis, unspecified cp Followup: cp - With: Private Physician - When: 2 - 3 days - Reason: Worsening of condition Discharge Instructions: - Discharge Summary Sheet cp - Pharyngitis cp - Cough, Adult cp Forms: - Medication Reconciliation Form cp - Thank You Letter cp - Antibiotic Education cp - Prescription Opioid Use cp - Patient Portal Instructions cp - Leadership Thank You Letter cp Prescriptions: - Bromfed DM 2-30-10 mg/5 mL Oral syrup - administer 10 milliliter ORAL route 3 times per day as needed for cold cp symptoms; 240 milliliter; Refills: 0, Product Selection Permitted - albuterol sulfate 90 mcg/actuation Inhalation HFA Aerosol Inhaler - inhale 1 inhalation INHALATION route every 4-6 hours as needed for cp bronchospasm; administer via ventilator; 1 unit; Refills: 0, Product Selection Permitted - Zithromax Z-Pranav 250 mg Oral Tablet - take 1 tablet ORAL route as directed for 5 days Day 1 - take two (2) tablets cp one time. Day 2, 3, 4 , 5 take one (1) tablet once daily.; 6 tablet; Refills: 0, Product Selection Permitted Signatures: Dispatcher [employer] EDMS Cristhian Boss PA PA cp Jamia Madera RN RN ll1 Saad Shaver MD MD rt J Luis Chavez RN RN tl4 Corrections: (The following items were deleted from the chart) 06/29 19:04 19:04 Group A Streptococcus Rapid Sc+BA.LAB.BRZ ordered. EDMS EDMS 19:04 19:04 Influenza Screen (A \T\ B)+BA.LAB.BRZ ordered. EDMS EDMS 19:04 19:04 SARS-COV-2 Antigen Rapid+I.LAB.BRZ ordered. EDMS EDMS 19:04 19:04 Chest Pa And Lat (2 Views)+RAD.RAD.BRZ ordered. EDMS EDMS
--- NOTE | 2023-06-30 21:09 | ER ---
Nurse's Notes [facility] Name: Marcel Hein Age: 83 yrs Sex: Male : 1940 Arrival Date: 06/30/2023 Time: 17:46 Bed 14 Private MD: Maria Eugenia Nelson Diagnosis: Cough;Acute pharyngitis, unspecified Presentation: 06/29 18:11 Chief complaint: Patient states: Cough, JOHNSON, sore throat for 8 days. Coronavirus screen: ll1 Client denies travel out of the [place] in the last 14 days. cough unrelated to allergies, sore throat, Client presents with at least one sign or symptom that may indicate coronavirus-19. Standard/surgical mask placed on the client. Ebola Screen: Patient denies travel to an Ebola-affected area in the 21 days before illness onset. Initial Sepsis Screen: Does the patient meet any 2 criteria? No. Patient's initial sepsis screen is negative. Does the patient have a suspected source of infection? No. Patient's initial sepsis screen is negative. Risk Assessment: Do you want to hurt yourself or someone else? Patient reports no desire to harm self or others. 18:11 Method Of Arrival: Ambulatory [facility] 18:11 Acuity: CHAD 4 [facility] 18:17 Onset of symptoms was June 22, 2023. [facility] Triage Assessment: 18:13 Pain: Complains of pain in throat Quality of pain is described as aching. EENT: Reports ll1 pain when swallowing. Respiratory: Reports cough that is. 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 - Infectious Disease History:: Denies. - Social history:: Smoking status: Patient denies any tobacco usage or history of. Screenin:35 [facility] ED Fall Risk Assessment (Adult) History of falling in the last 3 months, tl4 including since admission No falls in past 3 months (0 pts) Confusion or Disorientation No (0 pts) Intoxicated or Sedated No (0 pts) Impaired Gait No (0 pts) Mobility Assist Device Used No (0 pt) Altered Elimination No (0 pt) Score/Fall Risk Level 0 - 2 = Low Risk Oriented to surroundings, Maintained a safe environment, Educated pt \T\ family on fall prevention, incl call for assistance when getting out of bed, Assessed \T\ reinforced patient's understanding of fall precautions, Hourly rounding (assess needs \T\ fall precautionary measures) done, Used ambulatory aids as needed (educated on \T\ assisted with), Used gait belt as appropriate. Abuse screen: Denies threats or abuse. Denies injuries from another. Nutritional screening: No deficits noted. Tuberculosis screening: No symptoms or risk factors identified. Assessment: 18:51 Reassessment: No changes from previously documented assessment. Patient and/or family ll1 updated on plan of care and expected duration. Pain level reassessed. 19:35 Reassessment: No changes from previously documented assessment. Patient and/or family tl4 updated on plan of care and expected duration. Pain level reassessed. Patient is alert, oriented x 3, equal unlabored respirations, skin warm/dry/pink. 19:36 General: Appears in no apparent distress. Behavior is calm, cooperative. Pain: tl4 Complains of pain in neck. Neuro: Level of Consciousness is awake, alert, obeys commands, Oriented to person, place, time, situation, Moves all extremities. Speech is normal, Facial symmetry appears normal, Denies weakness dizziness. Cardiovascular: Denies chest pain, Capillary refill < 3 seconds Patient's skin is warm and dry. Respiratory: Reports cough that is non-productive, Airway is patent Respiratory effort is even, unlabored, Respiratory pattern is regular, symmetrical, Breath sounds are clear bilaterally. GI: No deficits noted. No signs and/or symptoms were reported involving the gastrointestinal system. : No deficits noted. No signs and/or symptoms were reported regarding the genitourinary system. EENT: Throat is reddened. 21:30 Reassessment: Patient appears in no apparent distress at this time. Patient and/or jb4 family updated on plan of care and expected duration. Pain level reassessed. Patient is alert, oriented x 3, equal unlabored respirations, skin warm/dry/pink. Vital Signs: 18:12 BP 149 / 98; Pulse 60; Resp 18; Temp 98; Pulse Ox 99% ; Weight 68.04 kg; Height 5 ft. 5 ll1 in. ; 18:12 Body Mass Index 24.96 (68.04 kg, 165.1 cm) ll1 ED Course: 17:50 Patient arrived in ED. mr 17:50 Maria Eugenia Nelson is Private Physician. mr 17:54 Jase Au MD is Attending Physician. bo1 18:11 Triage completed. ll1 18:11 Arm band placed on. ll1 18:27 Cristhian Boss PA is PHCP. cp 18:27 Jase Au MD is Attending Physician. cp 18:50 Patient placed in an exam room, on a stretcher. ll1 19:25 J Luis Chavez, RN is Primary Nurse. tl4 19:35 Patient has correct armband on for positive identification. Bed in low position. Call tl4 light in reach. Side rails up X 1. Adult w/ patient. Provided Education on: ED process. Door closed. Noise minimized. Moved to private room. 19:35 SARS RAPID Sent. tl4 19:35 Influenza Screen (a \T\ B) Sent. tl4 19:35 Strep Sent. tl4 19:37 No provider procedures requiring assistance completed. tl4 20:00 Radiology exam delayed due to patient is not appropriately dressed for the exam at this az time. 20:11 XRAY Chest Pa And Lat (2 Views) In Process Unspecified. EDMS 21:07 Saad Shaver MD is Attending Physician. cp 21:30 Patient did not have IV access during this emergency room visit. jb4 Administered Medications: 20:51 Drug: Tessalon Perle PO 200 mg PO once Route: PO; tl4 Medication: 19:35 VIS not applicable for this client. tl4 Outcome: 21:09 Discharge ordered by . cp 21:30 Discharged to home ambulatory, with family, jb4 21:30 Condition: stable 21:30 Discharge instructions given to patient, Instructed on discharge instructions, follow up and referral plans. medication usage, Demonstrated understanding of instructions, follow-up care, medications, Prescriptions given X 3, 21:33 Patient left the ED. jb4 Signatures: Dispatcher [employer] EDTN Ileana Owusu, Reg Reg mr Cristhian Boss, Keven Liang cp, RN RN jb4 Palmira Britton Lynsay, RN RN ll1 J Luis Chavez RN RN tl4 Jase Au MD MD bo1 Corrections: (The following items were deleted from the chart) 18:13 18:11 Chief complaint: Patient states: Cough, sore throat for days ll1 ll1 18:17 18:11 Chief complaint: Patient states: Cough, sore throat for days ll1 ll1
[2023-07-01 03:10] VITALS: BP 149/98; TEMP 98; O2SAT 99
== END 2023-06-30 21:33 | disposition home or self-care (01) ==
LOC: ER 17:46
DX: R05.9 Cough, unspecified (principal); J02.9 Acute pharyngitis, unspecified; Z11.52 Encounter for screening for COVID-19; Z95.2 Presence of prosthetic heart valve
CPT/HCPCS: 36415; 71046; 87070; 87081; 87804; 87811; 99283